=== PATIENT | female | born 1945 | race Caucasian/White ===

== ENCOUNTER → 2016-05-13 | Outpatient (CLI) | payer MEDICARE, OTHER ==
[~2016-05-13] MED LIST: REGADENOSON 0.4 MG/5 ML SYRINGE IV ONE
--- NOTE | 2016-05-13 14:07 | EST ---
DATE OF SERVICE: 05/13/16 AGE: 70Y SEX: F HT: 5'4" WT: 230 lbs. Protocol Terrell: Other: Lexiscan Stage: Dur. of Exercise: *Heart Rate Blood Pressure *Rest: 56 Rest: 151/78 * *Max. Achieved: 89 Maximum BP: 151/78 85% PMHR: 126 100% PMHR: 148 *METS: INDICATIONS: Abnormal EKG. Chest pain. MEDICATIONS: Pretesting physical examination showed heart rate of 56, pressure 151/78 mmHg. Baseline EKG showed sinus rhythm. 0.4 mg of Lexiscan was given to the patient over a ( ) protocol . Maximum heart rate was 89 beats per minute and maximin blood pressure was 151/78 mmHg. Clinically the patient did not have any symptoms and the EKG did not show any significant ST or T wave abnormalities consistent with ischemia. CONCLUSION: 1. Nondiagnostic electrocardiogram stress testing in response to Lexiscan. 2. Please follow cardiology portion on a separate report from the radiology department
--- NOTE | 2016-05-13 15:09 | NM ---
EXAMINATION TYPE: NM stress lexiscan cardiolite DATE OF EXAM: 05/13/2016 11:07 AM COMPARISON: NONE HISTORY: Abnormal EKG TECHNIQUE: After the intravenous administration of 10.1 mCi Tc 99m Sestamibi - Cardiolite resting SP ECT images acquired 45 minutes post injection. The patient received 0.4mg Lexiscan, 26.8 mCi Tc 99m Sestamibi - Stress images obtained [address] injection FINDINGS: Review of stress and rest SPECT images demonstrates no distinct perfusion abnormality. Gated analysi s shows normal wall motion with an estimated left ventricular ejection fraction of 64 %. IMPRESSION: No scintigraphic evidence for reversible ischemia.
== END ==
LOC: RADNMMAIN 07:45
PROVIDERS: ATTEND Family Medicine
DX: R94.31 Abnormal electrocardiogram [ECG] [EKG] (principal)
CPT/HCPCS: 93017; 78452; A9500; J2785

== ENCOUNTER 2016-08-24 11:12 | Inpatient (IN) | payer MEDICARE, OTHER ==
[2016-08-24] MEDS ORDERED: RX INFO: IV CONTRAST WAS GIVEN 1 EACH MISC MISCELLANE PRN (11:55)
[2016-08-24 12:06] LABS: Basophils % (A) 0 %; CH 30.3; CHCM 34.2; Eosinophils # (A) 0.2 k/uL (0-0.7); Eosinophils % (A) 2 %; HCT 37.5 % (34.0-46.0); HDW 2.53; HGB 13.3 gm/dL (11.4-16.0); Luc # (Auto) 0.18; Luc % (Auto) 3; Lymphocytes # (A) 0.8 k/uL (1.0-4.8); Lymphocytes % (A) 12 %; MCH 31.6 pg (25.0-35.0); MCHC 35.5 g/dL (31.0-37.0); MCV 88.8 fL (80.0-100.0); Mean Platelet Volume 7.1; Monocytes # (A) 0.5 k/uL (0-1.0); Monocytes % (A) 7 %; Neutrophils # (A) 5.2 k/uL (1.3-7.7); Neutrophils % (A) 77 %; RBC 4.22 m/uL (3.80-5.40); RDW 14.1 % (11.5-15.5); WBC 6.8 k/uL (3.8-10.6); WBC (Perox) 7.11
[2016-08-24] MEDS ORDERED: methylPREDNISolone SOD SUCCI 125 MG/2 ML VIAL IV STA (12:07)
[2016-08-24] MEDS ORDERED: FAMOTIDINE 20 MG/2 ML VIAL IV STA (12:07)
[2016-08-24] MEDS ORDERED: diphenhydrAMINE 50 MG/ML 1 ML VIAL IVP STA (12:07)
[2016-08-24 12:18] LABS: ALT 30 U/L (9-52); AST 22 U/L (14-36); Alkaline Phosphatase 101 U/L (38-126); Anion Gap 10 mmol/L; Blood Urea Nitrogen 19 mg/dL (7-17); Calcium 9.4 mg/dL (8.4-10.2); Carbon Dioxide 24 mmol/L (22-30); Chloride 101 mmol/L (98-107); Glucose 97 mg/dL (74-99); Non-African American GFR(MDRD) >60 (>60 ml/min/1.73 sqM); Potassium 3.7 mmol/L (3.5-5.1); Sodium 135 mmol/L (137-145); Total Bilirubin 0.9 mg/dL (0.2-1.3); Total Protein 6.2 g/dL (6.3-8.2)
--- NOTE | 2016-08-24 12:24 | XR ---
EXAMINATION TYPE: XR chest 2V DATE OF EXAM: 08/24/2016 COMPARISON: 02/23/2016 INDICATION: Difficulty breathing TECHNIQUE: Frontal and lateral views of the chest are obtained. FINDINGS: The heart size is normal. The pulmonary vasculature is normal. Appears be some subtle subsegmental atelectasis within the right lower lung field. Some atelectatic c hanges at the left costophrenic angle of not excluded.. IMPRESSION: 1. Small amount of nonspecific infiltrate within the right lower lobe and left costophrenic angle. Co rrelate for atelectasis. Follow-up can be performed as clinically indicated.
[2016-08-24] MEDS ORDERED: KETOROLAC 30 MG/ML 1 ML VIAL IVP STA (12:25)
[2016-08-24 12:28] LABS: INR 1.1 (<1.1); Partial Thromboplastin Time 23.9 sec (22.0-30.0); Prothrombin Time 10.7 sec (9.0-12.0)
[2016-08-24 12:33] LABS: Creatine Kinase 77 U/L (30-135)
[2016-08-24 12:46] LABS: Troponin I <0.012 ng/mL (0.000-0.034)
--- NOTE | 2016-08-24 12:47 | ED ---
General Adult HPI - General Chief complaint: Shortness of Breath Stated complaint: SOB/Chest pain Time Seen by Provider: 08/24/16 11:15 Source: patient, RN notes reviewed Mode of arrival: ambulatory Limitations: no limitations - History of Present Illness Initial comments: This is a 70-year-old female presents emergency Department complaining of right- sided chest pain and right-sided back pain. Patient states it's much worse with deep breathing. Patient states she's not taking deep breaths she is not having any pain at all. Patient states she has been diagnosed with a pulmonary was noted and is supposed to be on Coumadin however about 5 months ago she stopped taking it because she gets sick of getting checked every couple of weeks for her levels. Patient states Friday night about 2 AM she started vomiting and did vomit the whole night through however today she has not vomited it is not nauseated. Patient wonders if she possibly aspirated and that is what is causing her chest pain. Patient denies any abdominal pain patient denies any diarrhea. Patient states currently she is not nauseated patient denies any recent fever chills or cough. Patient denies a headache patient denies numbness weakness. - Related Data Home Medications Medication Instructions Recorded Confirmed Albuterol Sulfate [Proair Hfa] 2 puff INHALATION RT-Q4H PRN 06/28/15 08/24/16 Carvedilol [Coreg] 6.25 mg PO BID 06/28/15 08/24/16 Fexofenadine HCl [Melany Allergy] 180 mg PO DAILY 06/28/15 08/24/16 Fluticasone/Salmeterol [Advair 1 puff INHALATION RT-BID PRN 06/28/15 08/24/16 250-50 Diskus] HYDROcodone/APAP 10-325MG [[place] 1 tab PO Q6HR PRN 06/28/15 08/24/16 10-325] Levothyroxine Sodium [Synthroid] 25 mcg PO MOWEFR 06/28/15 08/24/16 Levothyroxine Sodium [Synthroid] 50 mcg PO SUTUTHSA 06/28/15 08/24/16 Montelukast [Singulair] 10 mg PO HS 06/28/15 08/24/16 Omeprazole 40 mg PO DAILY 06/28/15 08/24/16 Potassium Chloride [K-Tab ER] 10 meq PO Q48H 06/28/15 08/24/16 Pramipexole Di-HCl [Mirapex] 0.75 mg PO HS 06/28/15 08/24/16 Sertraline HCl [Zoloft] 50 mg PO DAILY 06/28/15 08/24/16 buPROPion XL [Wellbutrin Xl] 300 mg PO DAILY 06/28/15 08/24/16 Naproxen Sodium [Aleve] 220 mg PO BID 11/21/15 08/24/16 Acetaminophen [Tylenol] 1,000 mg PO Q6HR PRN 08/24/16 08/24/16 Aspirin [Adult Low Dose Aspirin EC] 81 mg PO HS 08/24/16 08/24/16 Furosemide [Lasix] 40 mg PO DAILY 08/24/16 08/24/16 OXcarbazepine [Trileptal] 150 mg PO BID 08/24/16 08/24/16 Umeclidinium [place] [Incruse 1 puff INHALATION RT-DAILY PRN 08/24/16 08/24/16 Ellipta] Allergies Allergy/AdvReac Type Severity Reaction Status Date / Time tetanus and diphtheria Allergy Severe Anaphylaxis Verified 08/24/16 12:53 toxoids [tetanus & diphtheria toxoids] nick Allergy Unknown ASTHMA Verified 08/24/16 12:53 ATTACK perfume Allergy Unknown ASTHMA Verified 08/24/16 12:53 ATTACK iodine Allergy Anaphylaxis Verified 08/24/16 12:53 mold Allergy Itching Verified 08/24/16 12:53 pollen extracts Allergy Itching Verified 08/24/16 12:53 cats Allergy Itching Uncoded 11/22/15 09:43 dust Allergy Itching Uncoded 11/22/15 09:43 Review of Systems ROS Statement: Those systems with pertinent positive or pertinent negative responses have been documented in the HPI. ROS Other: All systems not noted in ROS Statement are negative. Past Medical History Past Medical History: Asthma, Cancer, COPD, Fibromyalgia, GERD/Reflux, Hyperlipidemia, Hypertension, Musculoskeletal Disorder, Pneumonia, Pulmonary Embolus (PE), Sleep Apnea/CPAP/BIPAP, Thyroid Disorder Additional Past Medical History / Comment(s): HX OF OVARIAN CANCER, RLS, ENVIRONMENTAL ALLERGIES, HX OF PNEUMONIA W/LIFE SUPPORT, C-PAP MACHINE., HX OF COLITIS, HIATAL HERNIA W/SURGERY, BACK PAIN, SPINAL STENOSIS, DJD, COMPRESSION FX LUMABAR & CERVICAL SPINE. LOW THYROID. STATES "A FACTOR ON HER BLOOD "-WHICH TAKES LONGER TO DO A TYPE & CROSS MATCH. , STATES FALL WITH LOSS OF CONSCIOUSNESS (NOV 2014). History of Any Multi-Drug Resistant Organisms: None Reported Past Surgical History: Breast Surgery, Cholecystectomy, Joint Replacement, Orthopedic Surgery Additional Past Surgical History / Comment(s): HIATAL HERNIA (2011), RIGHT HAND KNUCKLE S, TOTAL LEFT HIP, REVISION LEFT HIP, TOTAL LEFT SHOULDER, TOTAL RIGHT KNEE, RIGHT ROTATOR CUFF, RT BREAST MASS, FATTY TUMORS, RIGHT ELBOW NERVE, RIGHT KNEE ARTHROSCOPY. Past Anesthesia/Blood Transfusion Reactions: No Reported Reaction Past Psychological History: Depression, PTSD Smoking Status: Former smoker Past Alcohol Use History: Rare Past Drug Use History: None Reported - Past Family History Mother Family Medical History: Cancer Additional Family Medical History / Comment(s): LYMPHOMA General Exam - General Exam Comments Initial Comments: GENERAL: Patient is well-developed and well-nourished. Patient is nontoxic and well- hydrated and is in moderate distress with deep breathing. ENT: Neck is soft and supple. No significant lymphadenopathy is noted. Oropharynx is clear. Moist mucous membranes. Neck has full range of motion without eliciting any pain. EYES: The sclera were anicteric and conjunctiva were pink and moist. Extraocular movements were intact and pupils were equal round and reactive to light. Eyelids were unremarkable. PULMONARY: Unlabored respirations. Good breath sounds bilaterally. No audible rales rhonchi or wheezing was noted. CARDIOVASCULAR: There is a regular rate and rhythm without any murmurs gallops or rubs. ABDOMEN: Soft and nontender with normal bowel sounds. No palpable organomegaly was noted. There is no palpable pulsatile mass. SKIN: Skin is clear with no lesions or rashes and otherwise unremarkable. NEUROLOGIC: Patient is alert and oriented x3. Cranial nerves II through XII are grossly intact. Motor and sensory are also intact. Normal speech, volume and content. Symmetrical smile. MUSCULOSKELETAL: Normal extremities with adequate strength and full range of motion. No lower extremity swelling or edema. No calf tenderness. LYMPHATICS: No significant lymphadenopathy is noted PSYCHIATRIC: Normal psychiatric evaluation. Normal interpersonal interactions appears functionally intact in deals appropriately with others. No signs of depression. No signs of anxiety. Limitations: no limitations Course Vital Signs 08/24/16 08/24/16 08/24/16 11:20 11:41 12:18 Temperature 97 F L Pulse Rate 67 71 Respiratory 20 20 18 Rate Blood Pressure 137/66 155/68 O2 Sat by Pulse 94 L 95 Oximetry 08/24/16 13:20 Temperature Pulse Rate 77 Respiratory 18 Rate Blood Pressure 168/78 O2 Sat by Pulse 98 Oximetry Medical Decision Making - Medical Decision Making EKG shows normal sinus rhythm at 64 bpm NV interval is 150 QRS 70 QT interval 400 QTC is 412 per patient's EKG shows no ST segment elevation or depression or T wave abnormalities are noted CT shows bilateral pulmonary emboli. Patient started on high-dose heparin in the emergency department. I spoke with Dr. Grimaldo he agreed to admit the patient admitted the patient to continue the high-dose heparin on the floor and I consult Dr. Day. - Lab Data Result diagrams: 08/24/16 11:38 08/24/16 11:38 Lab Results 08/24/16 08/24/16 08/24/16 Range/Units 11:38 11:38 11:38 WBC 6.8 (3.8-10.6) k/uL RBC 4.22 (3.80-5.40) m/uL Hgb 13.3 (11.4-16.0) gm/dL Hct 37.5 (34.0-46.0) % MCV 88.8 (80.0-100.0) fL MCH 31.6 (25.0-35.0) pg MCHC 35.5 (31.0-37.0) g/dL RDW 14.1 (11.5-15.5) % Plt Count 207 (150-450) k/uL Neutrophils % 77 % Lymphocytes % 12 % Monocytes % 7 % Eosinophils % 2 % Basophils % 0 % Neutrophils # 5.2 (1.3-7.7) k/uL Lymphocytes # 0.8 L (1.0-4.8) k/uL Monocytes # 0.5 (0-1.0) k/uL Eosinophils # 0.2 (0-0.7) k/uL Basophils # 0.0 (0-0.2) k/uL PT 10.7 (9.0-12.0) sec INR 1.1 (<1.1) APTT 23.9 (22.0-30.0) sec D-Dimer 4.26 H (<0.60) mg/L FEU Sodium (137-145) mmol/L Potassium (3.5-5.1) mmol/L Chloride (98-107) mmol/L Carbon Dioxide (22-30) mmol/L Anion Gap mmol/L BUN (7-17) mg/dL Creatinine (0.52-1.04) mg/dL Est GFR (MDRD) Af Amer (>60 ml/min/1.73 sqM) Est GFR (MDRD) Non-Af (>60 ml/min/1.73 sqM) Glucose (74-99) mg/dL Calcium (8.4-10.2) mg/dL Total Bilirubin (0.2-1.3) mg/dL AST (14-36) U/L ALT (9-52) U/L Alkaline Phosphatase (38-126) U/L Total Creatine Kinase 77 (30-135) U/L CK-MB (CK-2) 1.0 (0.0-2.4) ng/mL CK-MB (CK-2) Rel Index 1.3 Troponin I <0.012 (0.000-0.034) ng/mL Total Protein (6.3-8.2) g/dL Albumin (3.5-5.0) g/dL 08/24/16 Range/Units 11:38 WBC (3.8-10.6) k/uL RBC (3.80-5.40) m/uL Hgb (11.4-16.0) gm/dL Hct (34.0-46.0) % MCV (80.0-100.0) fL MCH (25.0-35.0) pg MCHC (31.0-37.0) g/dL RDW (11.5-15.5) % Plt Count (150-450) k/uL Neutrophils % % Lymphocytes % % Monocytes % % Eosinophils % % Basophils % % Neutrophils # (1.3-7.7) k/uL Lymphocytes # (1.0-4.8) k/uL Monocytes # (0-1.0) k/uL Eosinophils # (0-0.7) k/uL Basophils # (0-0.2) k/uL PT (9.0-12.0) sec INR (<1.1) APTT (22.0-30.0) sec D-Dimer (<0.60) mg/L FEU Sodium 135 L (137-145) mmol/L Potassium 3.7 (3.5-5.1) mmol/L Chloride 101 (98-107) mmol/L Carbon Dioxide 24 (22-30) mmol/L Anion Gap 10 mmol/L BUN 19 H (7-17) mg/dL Creatinine 0.83 (0.52-1.04) mg/dL Est GFR (MDRD) Af Amer >60 (>60 ml/min/1.73 sqM) Est GFR (MDRD) Non-Af >60 (>60 ml/min/1.73 sqM) Glucose 97 (74-99) mg/dL Calcium 9.4 (8.4-10.2) mg/dL Total Bilirubin 0.9 (0.2-1.3) mg/dL AST 22 (14-36) U/L ALT 30 (9-52) U/L Alkaline Phosphatase 101 (38-126) U/L Total Creatine Kinase (30-135) U/L CK-MB (CK-2) (0.0-2.4) ng/mL CK-MB (CK-2) Rel Index Troponin I (0.000-0.034) ng/mL Total Protein 6.2 L (6.3-8.2) g/dL Albumin 3.7 (3.5-5.0) g/dL Critical Care Time Critical Care Time: Yes Total Critical Care Time: 35 Disposition Clinical Impression: Pulmonary embolism Disposition: ADMITTED IP TO THIS [facility] Referrals: Obdulio Grimaldo MD [Primary Care Provider] - 1-2 days Time of Disposition: 14:10
--- NOTE | 2016-08-24 14:00 | CT ---
CT CHEST FOR PULMONARY EMBOLISM. EXAMINATION TYPE: CT chest angio for PE DATE OF EXAM: 08/24/2016 INDICATION: SOB, chest pain CT DLP: 397.80 mGycm, Automated exposure control for dose reduction was used. CONTRAST: Patient injected with 100 ml mL of Omnipaque 350. COMPARISON: NONE TECHNIQUE: CT of the chest is performed on a spiral scan at 2 mm thick sections. Study is performed with intravenous contrast timed for evaluation for pulmonary embolism. This will limit additional po rtions of the evaluation. 3-D MIP images reconstructed by the technologist are reviewed on the compu ter in the coronal and sagittal planes. FINDINGS: There are filling defects within the first order left lung pulmonary vessels. Second order right lowe r lobe vessels also contain thrombus. Findings are compatible with acute pulmonary emboli. No mediastinal or hilar adenopathy enlarged by CT criteria is evident. The ascending aorta diameter at the level of the main pulmonary artery is 3.2 cm. The main pulmonary artery diameter at the bifur cation is 2.9 cm. Atelectatic type changes are within the bilateral lung bases. There is some consolidation in the righ t lower lobe. This could be related to pulmonary embolism and wedge infarct, Bray's hump. Limited CT section through the upper abdomen are unremarkable. There is diffuse fatty infiltration to the pancreas Report was called to Dr. iDego by Dr. Brock by telephone 1350 hours 08/24/2016. IMPRESSIONS: 1. Bilateral pulmonary emboli.
[2016-08-24] MEDS ORDERED: HEPARIN SODIUM,PORCINE 10,000 UNIT/ML 1 ML VIAL IV ONE (14:15)
[2016-08-24] MEDS ORDERED: SODIUM CHLORIDE 0.9% 1,000 ML IV ONE (14:29)
[2016-08-24] MEDS: HEPARIN SODIUM,PORCINE/D5W PMX 25,000 UNIT in DEXTROSE/WATER 1 500ML.BAG IV SCH (14:31)
[2016-08-24 16:44] VITALS: BMI 37.4
[2016-08-24] MEDS ORDERED: ACETAMINOPHEN TAB 500 MG TAB PO PRN (17:41)
[2016-08-24] MEDS ORDERED: CARVEDILOL 6.25 MG TAB PO SCH (18:00)
[2016-08-24] MEDS: HYDROcodone/APAP 10-325MG 1 EACH TAB PO PRN (19:49)
[2016-08-24] MEDS: NAPROXEN 250 MG TAB PO SCH (19:51)
[2016-08-24] MEDS: ASPIRIN 81 MG CHEW PO SCH (19:51)
[2016-08-24] MEDS: MONTELUKAST 10 MG TAB PO SCH (19:51)
[2016-08-24] MEDS: PRAMIPEXOLE 0.25 MG TAB PO SCH (19:52)
[2016-08-24] MEDS: OXcarbazepine 150 MG TAB PO SCH (19:52)
[2016-08-24] MEDS: SYMBICORT 80-4.5 MCG INHALER INHALATION SCH (20:00)
[2016-08-24] MEDS: PANTOPRAZOLE 40 MG TABLET PO SCH (20:09)
[2016-08-25] MEDS: HEPARIN SODIUM,PORCINE/D5W PMX 25,000 UNIT in DEXTROSE/WATER 1 500ML.BAG IV SCH ×2 (06:01→20:18)
[2016-08-25] MEDS: LEVOTHYROXINE 50 MCG TAB PO SCH (06:17)
[2016-08-25] MEDS: CARVEDILOL 6.25 MG TAB PO SCH ×2 (07:01→16:58)
[2016-08-25] MEDS: SYMBICORT 80-4.5 MCG INHALER INHALATION SCH ×2 (07:57→19:56)
[2016-08-25] MEDS: TIOTROPIUM 18 MCG/PUFF INHALER INHALATION SCH (07:57)
[2016-08-25] MEDS: ALBUTEROL NEBULIZED 2.5 MG/3 ML INHALATION PRN ×4 (07:57→19:56)
[2016-08-25] MEDS: buPROPion XL 300 MG TAB.ER.24H PO SCH (08:37)
[2016-08-25] MEDS: OXcarbazepine 150 MG TAB PO SCH ×2 (08:38→20:24)
[2016-08-25] MEDS: SERTRALINE 50 MG TAB PO SCH (08:38)
[2016-08-25] MEDS: FUROSEMIDE 40 MG TAB PO SCH (08:39)
[2016-08-25] MEDS: POTASSIUM CHLORIDE ER 10 MEQ TAB.ER.PRT PO SCH (08:39)
[2016-08-25] MEDS: LORATADINE 10 MG TAB PO SCH (08:39)
[2016-08-25] MEDS: NAPROXEN 250 MG TAB PO SCH ×2 (08:42→20:24)
[2016-08-25] MEDS ORDERED: PANTOPRAZOLE 40 MG TABLET PO SCH (09:00)
--- NOTE | 2016-08-25 09:59 | P.HPIM ---
History of Present Illness H&P Date: 08/25/16 Chief Complaint: Dyspnea White female admitted 2-3 day history of shortness of breath cough congestion worsening with tightness or chest pain she took a deep breath fraction was in the low 90s with any amylacea home in which time she came to the ER she went off her Coumadin by herself with no medical advice and was found to have bilateral pulmonary embolism in the ER and admitted for primary bilateral pulmonary embolism Review of Systems REVIEW OF SYSTEMS: PSYCH: [Negative.] NEURO: [Negative.] VASCULAR: [Negative.] HEMATOLOGIC: [Negative.] IMMUNE: [Negative.] INTEGUMENT: [ Negative.] OPHTHALMOLOGIC: [Negative.] : [Negative.] 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 LOW THYROID. STATES "A FACTOR ON HER BLOOD "-WHICH TAKES LONGER TO DO A TYPE & CROSS MATCH. , STATES FALL WITH LOSS OF CONSCIOUSNESS (NOV 2014). History of Any Multi-Drug Resistant Organisms: None Reported Past Surgical History: Breast Surgery, Cholecystectomy, Hysterectomy, Joint Replacement, Orthopedic Surgery Additional Past Surgical History / Comment(s): HIATAL HERNIA (2011), RIGHT HAND KNUCKLE S, TOTAL LEFT HIP, REVISION LEFT HIP, TOTAL LEFT SHOULDER, TOTAL RIGHT KNEE, RIGHT ROTATOR CUFF, RT BREAST MASS, FATTY TUMORS, RIGHT ELBOW NERVE, RIGHT KNEE ARTHROSCOPY. Past Anesthesia/Blood Transfusion Reactions: No Reported Reaction Past Psychological History: Depression, PTSD Smoking Status: Former smoker Past Alcohol Use History: Rare Past Drug Use History: None Reported - Past Family History Mother Family Medical History: Cancer Additional Family Medical History / Comment(s): non [place] LYMPHOMA Medications and Allergies Home Medications Medication Instructions Recorded Confirmed Type Albuterol Sulfate [Proair Hfa] 2 puff INHALATION RT-Q4H PRN 06/28/15 08/24/16 History Carvedilol [Coreg] 6.25 mg PO BID 06/28/15 08/24/16 History Fexofenadine HCl [Melany Allergy] 180 mg PO DAILY 06/28/15 08/24/16 History Fluticasone/Salmeterol [Advair 1 puff INHALATION RT-BID PRN 06/28/15 08/24/16 History 250-50 Diskus] HYDROcodone/APAP 10-325MG [[place] 1 tab PO Q6HR PRN 06/28/15 08/24/16 History 10-325] Levothyroxine Sodium [Synthroid] 25 mcg PO MOWEFR 06/28/15 08/24/16 History Levothyroxine Sodium [Synthroid] 50 mcg PO SUTUTHSA 06/28/15 08/24/16 History Montelukast [Singulair] 10 mg PO HS 06/28/15 08/24/16 History Omeprazole 40 mg PO DAILY 06/28/15 08/24/16 History Potassium Chloride [K-Tab ER] 10 meq PO Q48H 06/28/15 08/24/16 History Pramipexole Di-HCl [Mirapex] 0.75 mg PO HS 06/28/15 08/24/16 History Sertraline HCl [Zoloft] 50 mg PO DAILY 06/28/15 08/24/16 History buPROPion XL [Wellbutrin Xl] 300 mg PO DAILY 06/28/15 08/24/16 History Naproxen Sodium [Aleve] 220 mg PO BID 11/21/15 08/24/16 History Acetaminophen [Tylenol] 1,000 mg PO Q6HR PRN 08/24/16 08/24/16 History Aspirin [Adult Low Dose Aspirin EC] 81 mg PO HS 08/24/16 08/24/16 History Furosemide [Lasix] 40 mg PO DAILY 08/24/16 08/24/16 History OXcarbazepine [Trileptal] 150 mg PO BID 08/24/16 08/24/16 History Umeclidinium [place] [Incruse 1 puff INHALATION RT-DAILY PRN 08/24/16 08/24/16 History Ellipta] Allergies Allergy/AdvReac Type Severity Reaction Status Date / Time tetanus and diphtheria Allergy Severe Anaphylaxis Verified 08/24/16 12:53 toxoids [tetanus & diphtheria toxoids] nick Allergy Unknown ASTHMA Verified 08/24/16 12:53 ATTACK perfume Allergy Unknown ASTHMA Verified 08/24/16 12:53 ATTACK iodine Allergy Anaphylaxis Verified 08/24/16 12:53 mold Allergy Itching Verified 08/24/16 12:53 pollen extracts Allergy Itching Verified 08/24/16 12:53 cats Allergy Itching Uncoded 11/22/15 09:43 dust Allergy Itching Uncoded 11/22/15 09:43 Physical Exam Vitals: Vital Signs Temp Pulse Pulse Resp BP BP Pulse Ox 08/25/16 08:12 70 08/25/16 07:59 66 95 08/25/16 04:00 96.8 F L 60 20 124/59 95 08/25/16 00:00 97.0 F L 63 20 121/59 98 08/24/16 20:00 97.1 F L 77 20 136/61 97 08/24/16 16:00 98.3 F 69 18 147/80 96 08/24/16 14:32 98.4 F 65 18 150/66 92 L 08/24/16 13:20 77 18 168/78 98 08/24/16 12:18 71 18 155/68 95 08/24/16 11:41 20 08/24/16 11:20 97 F L 67 20 137/66 94 L Intake and Output 08/24/16 08/25/16 08/25/16 22:59 06:59 14:59 Intake Total 202.64 1239.393 Balance 202.64 1239.393 Intake: IV 1000 Sodium Chloride 0.9% 1, 1000 000 ml @ 100 mls/hr IV . Q10H ONE Rx#:[id number] Intake, IV Titration 202.64 239.393 Amount Heparin Sodium,Porcine/ 202.64 239.393 D5w Pmx 25,000 unit In Dextrose/Water 1 500ml. bag @ 18 UNITS/KG/HR 35. 76 mls/hr IV .[id number] [facility] Rx#:[id number] Other: Voiding Method Toilet Toilet # Voids 1 1 Weight 99 kg 101.1 kg - Constitutional General appearance: obese - EENT Eyes: PERRLA ENT: hard of hearing - Neck Neck: normal ROM Thyroid: negative: normal size - Respiratory Respiratory: bilateral: diminished, rales - Cardiovascular Rhythm: regular - Gastrointestinal General gastrointestinal: decreased bowel sounds - Integumentary Integumentary: normal - Neurologic Neurologic: CNII-XII intact - Musculoskeletal Musculoskeletal: gait normal - Psychiatric Psychiatric: A&O x's 3, appropriate affect Results CBC & Chem 7: 08/24/16 11:38 08/24/16 11:38 Labs: Abnormal Lab Results - Last 24 Hours (Table) 08/24/16 08/24/16 08/24/16 Range/Units 11:38 11:38 11:38 Lymphocytes # 0.8 L (1.0-4.8) k/uL APTT (22.0-30.0) sec D-Dimer 4.26 H (<0.60) mg/L FEU Sodium 135 L (137-145) mmol/L BUN 19 H (7-17) mg/dL Total Protein 6.2 L (6.3-8.2) g/dL 08/24/16 08/25/16 Range/Units 19:21 03:17 Lymphocytes # (1.0-4.8) k/uL APTT 144.5 H* 130.5 H* (22.0-30.0) sec D-Dimer (<0.60) mg/L FEU Sodium (137-145) mmol/L BUN (7-17) mg/dL Total Protein (6.3-8.2) g/dL Thrombosis Risk Factor Assmnt - Choose All That Apply Each Risk Factor Represents 2 Points: Age 61-74 years Each Risk Factor Represents 3 Points: History of DVT/PE Thrombosis Risk Factor Assessment Total Risk Factor Score: 5 Thrombosis Risk Factor Assessment Level: High Risk Assessment and Plan Plan: IV heparin high-dose Coumadin 10 mg today by mouth INR daily with Coumadin stabilized she'll be discharged home continue on updraft treatments for her breathing incentive spirometry home medications be continued Time with Patient: Greater than 30
[2016-08-25] MEDS: HYDROcodone/APAP 10-325MG 1 EACH TAB PO PRN ×2 (11:09→16:58)
--- NOTE | 2016-08-25 12:43 | P.CNPUL ---
History of Present Illness Consult date: 08/25/16 Reason for consult: pulmonary embolism History of present illness: 70-year-old female patient is very well-known to me with previous history of multiple medical problems including a history of pulmonary embolism that occurred back in 2006 who came in yesterday to the emergency department complaining of a right-sided chest pain and posterior back pain that was worse with breathing and out of the state was pleuritic in nature. The patient stated that she is unable to take deep breaths due to the pain and the increased shortness of breath. The patient adequate taken off Coumadin approximately 5 months ago. She stopped it because she was getting tired of monitoring the levels. She was hemodynamically stable and the burst department. She was afebrile. Her pulse ox was 95% on 2 L of oxygen nasal cannula. EKG showed no ST segment changes. CAT scan of the chest showed bilateral pulmonary embolismIn addition to atelectatic changes in the lung bases and there are some consolidation of the right lower lobe probably later to an underlying pulmonary embolism. For all this reasons, the patient was hospitalized and the patient was started on IV heparin and pulmonary consultation was requested. Review of Systems 12 point review of system was done and the positive findings are almost above in history of present illness. Please refer to my detailed notes. All systems: negative Constitutional: Denies chills, Denies fever Eyes: denies blurred vision, denies pain Ears, nose, mouth and throat: Denies headache, Denies sore throat Cardiovascular: Reports dyspnea on exertion, Denies chest pain, Denies shortness of breath Respiratory: Reports cough, Reports dyspnea, Reports pain on inspiration Gastrointestinal: Denies abdominal pain, Denies diarrhea, Denies nausea, Denies vomiting Genitourinary: Denies dysuria, Denies hematuria Musculoskeletal: Denies myalgias Integumentary: Denies pruritus, Denies rash Neurological: Denies numbness, Denies weakness Psychiatric: Denies anxiety, Denies depression Endocrine: Denies fatigue, Denies weight change Past Medical History Past Medical History: Asthma, Cancer, COPD, Fibromyalgia, GERD/Reflux, Hyperlipidemia, Hypertension, Musculoskeletal Disorder, Pneumonia, Pulmonary Embolus (PE), Sleep Apnea/CPAP/BIPAP, Thyroid Disorder Additional Past Medical History / Comment(s): Obesity, obstructive sleep apnea severe maintained on CPAP therapy at a pressure of 12 cm water and the patient' s AHI is 106, COPD, previous history of pulmonary embolism in 2006, hypercoagulable state with MTHFR gene abnormalities maintained on long-term and to coagulation with warfarin, rheumatoid arthritis, RA , fibromyalgia, osteoarthritis, spondylolisthesis, depression, hypothyroidism, acid reflux, chronic anemia, fatty tumor in her uterus and ovaries removed, morbid obesity, osteoporosis, cervical cancer, seasonal rhinitis, spinal stenosis, hypothyroidism History of Any Multi-Drug Resistant Organisms: None Reported Past Surgical History: Breast Surgery, Cholecystectomy, Hysterectomy, Joint Replacement, Orthopedic Surgery Additional Past Surgical History / Comment(s): Rotator cuff repair 2011, the placement of the proximal knuckles to the third and the fourth digit in 2010, left hip replacement 2010, left shoulder patient 2007, right knee replacement 2005, total abdominal hysterectomy and bilateral salpingo-oophorectomy 1987, right knee arthroscopy 2004, left knee arthroscopy 2003, cholecystectomy, right elbow surgery 1994, hiatal hernia repair in 2011, Past Anesthesia/Blood Transfusion Reactions: No Reported Reaction Past Psychological History: Depression, PTSD Smoking Status: Former smoker Past Alcohol Use History: Rare Past Drug Use History: None Reported - Past Family History Mother Family Medical History: Cancer Additional Family Medical History / Comment(s): non Hodgekins LYMPHOMA Medications and Allergies Home Medications Medication Instructions Recorded Confirmed Type Albuterol Sulfate [Proair Hfa] 2 puff INHALATION RT-Q4H PRN 06/28/15 08/24/16 History Carvedilol [Coreg] 6.25 mg PO BID 06/28/15 08/24/16 History Fexofenadine HCl [Melany Allergy] 180 mg PO DAILY 06/28/15 08/24/16 History Fluticasone/Salmeterol [Advair 1 puff INHALATION RT-BID PRN 06/28/15 08/24/16 History 250-50 Diskus] HYDROcodone/APAP 10-325MG [[place]akoti 1 tab PO Q6HR PRN 06/28/15 08/24/16 History 10-325] Levothyroxine Sodium [Synthroid] 25 mcg PO MOWEFR 06/28/15 08/24/16 History Levothyroxine Sodium [Synthroid] 50 mcg PO SUTUTHSA 06/28/15 08/24/16 History Montelukast [Singulair] 10 mg PO HS 06/28/15 08/24/16 History Omeprazole 40 mg PO DAILY 06/28/15 08/24/16 History Potassium Chloride [K-Tab ER] 10 meq PO Q48H 06/28/15 08/24/16 History Pramipexole Di-HCl [Mirapex] 0.75 mg PO HS 06/28/15 08/24/16 History Sertraline HCl [Zoloft] 50 mg PO DAILY 06/28/15 08/24/16 History buPROPion XL [Wellbutrin Xl] 300 mg PO DAILY 06/28/15 08/24/16 History Naproxen Sodium [Aleve] 220 mg PO BID 11/21/15 08/24/16 History Acetaminophen [Tylenol] 1,000 mg PO Q6HR PRN 08/24/16 08/24/16 History Aspirin [Adult Low Dose Aspirin EC] 81 mg PO HS 08/24/16 08/24/16 History Furosemide [Lasix] 40 mg PO DAILY 08/24/16 08/24/16 History OXcarbazepine [Trileptal] 150 mg PO BID 08/24/16 08/24/16 History Umeclidinium [place] [Incruse 1 puff INHALATION RT-DAILY PRN 08/24/16 08/24/16 History Ellipta] Allergies Allergy/AdvReac Type Severity Reaction Status Date / Time tetanus and diphtheria Allergy Severe Anaphylaxis Verified 08/24/16 12:53 toxoids [tetanus & diphtheria toxoids] nick Allergy Unknown ASTHMA Verified 08/24/16 12:53 ATTACK perfume Allergy Unknown ASTHMA Verified 08/24/16 12:53 ATTACK iodine Allergy Anaphylaxis Verified 08/24/16 12:53 mold Allergy Itching Verified 08/24/16 12:53 pollen extracts Allergy Itching Verified 08/24/16 12:53 cats Allergy Itching Uncoded 11/22/15 09:43 dust Allergy Itching Uncoded 11/22/15 09:43 Physical Exam Vitals: Vital Signs Temp Pulse Pulse Resp BP BP Pulse Ox 08/25/16 08:12 70 08/25/16 08:00 97 F L 58 L 16 129/81 97 08/25/16 07:59 66 95 08/25/16 04:00 96.8 F L 60 20 124/59 95 08/25/16 00:00 97.0 F L 63 20 121/59 98 08/24/16 20:00 97.1 F L 77 20 136/61 97 08/24/16 16:00 98.3 F 69 18 147/80 96 08/24/16 14:32 98.4 F 65 18 150/66 92 L 08/24/16 13:20 77 18 168/78 98 08/24/16 12:18 71 18 155/68 95 08/24/16 11:41 20 08/24/16 11:20 97 F L 67 20 137/66 94 L Intake and Output 08/24/16 08/25/16 08/25/16 22:59 06:59 14:59 Intake Total 202.64 1239.393 Balance 202.64 1239.393 Intake: IV 1000 Sodium Chloride 0.9% 1, 1000 000 ml @ 100 mls/hr IV . Q10H [facility] Rx#:[id number] Intake, IV Titration 202.64 239.393 Amount Heparin Sodium,Porcine/ 202.64 239.393 D5w Pmx 25,000 unit In Dextrose/Water 1 500ml. bag @ 18 UNITS/KG/HR 35. 76 mls/hr IV .[id number] [facility] Rx#:[id number] Other: Voiding Method Toilet Toilet # Voids 1 1 Weight 99 kg 101.1 kg Obesity, calm and comfortable, no acute distress.Head exam was generally normal. There was no scleral icterus or corneal arcus. Mucous membranes were moist. Neck is supple and the patient has a significant crowding of the posterior oropharynx. There is no goiter or neck masses. Lungs sounds are diminished in lung base bilaterally otherwise clear.Cardiac exam revealed the PMI to be normally situated and sized. The rhythm was regular and no extrasystoles were noted during several minutes of auscultation. The first and second heart sounds were normal and physiologic splitting of the second heart sound was noted. There were no murmurs, rubs, clicks, or gallops.Abdominal exam revealed normal bowel sounds. The abdomen was soft, non-tender, and without masses, organomegaly, or appreciable enlargement of the abdominal aorta. Organs cannot be accurately palpated as the patient is obese.Examination of the extremities revealed easily palpable radial, femoral and pedal pulses. There was no cyanosis, clubbing or edema. - Constitutional General appearance: no acute distress - EENT Eyes: EOMI - Neck Neck: no lymphadenopathy Results - Laboratory Findings CBC and BMP: 08/24/16 11:38 08/24/16 11:38 PT/INR, D-dimer PT 10.7 sec (9.0-12.0) 08/24/16 11:38 INR 1.1 (<1.1) 08/24/16 11:38 D-Dimer 4.26 mg/L FEU (<0.60) H 08/24/16 11:38 Abnormal lab findings: Abnormal Labs 08/24/16 08/24/16 08/24/16 11:38 11:38 11:38 Lymphocytes # 0.8 L APTT D-Dimer 4.26 H Sodium 135 L BUN 19 H Total Protein 6.2 L 08/24/16 08/25/16 19:21 03:17 Lymphocytes # APTT 144.5 H* 130.5 H* D-Dimer Sodium BUN Total Protein - Diagnostic Findings CT scan - chest: image reviewed Assessment and Plan Plan: Assessment 1 acute but the pulmonary embolism with secondary pleuritic chest pain and shortness of breath. This is a recurrent event. The patient is known to have underlying hypercoagulable state and previous pulmonary embolism. She will need lifelong anticoagulation. She is currently on IV heparin 2 severe symptomatic obstructive sleep apnea with an AHI of 106 currently on a CPAP pressure of 12 cm of water. 3 previous history of pulmonary embolism in 2006 4 hypercoagulable state with previous MTHFR are gene abnormalities and the patient was taken lifelong anticoagulation with warfarin 5 osteoarthritis 6 osteoarthritis 7 spondylolisthesis 8 fibromyalgia 9 cervical cancer resected 10 spondylolisthesis 11 depression 13 hypothyroidism 14 chronic anemia 15 acid reflux 16 osteoporosis 17 seasonal rhinitis Plan I had a lengthy discussion with the patient. I discussed with her the importance of anticoagulation. She will be requiring lifelong anticoagulation. Her main issue seems to be the frequent monitoring that she has to do in the hospital for her INR. I think a home INR monitoring should solve her problem as she can monitor her levels at home and contact a physician for any adjustments. The new oral anticoagulants are quite expensive and not covered under insurance coverage. Based on that, the patient will be going back on warfarin and she'll be started on warfarin today to achieve an INR between 2 and 3. Meanwhile, continue IV heparin for now.
[2016-08-25] MEDS ORDERED: CALCIUM CARBONATE 500 MG CHEWABLE PO PRN (14:26)
[2016-08-25] MEDS: diphenhydrAMINE 50 MG CAP PO PRN (16:58)
[2016-08-25] MEDS ORDERED: WARFARIN 10 MG TAB PO ONE (18:00)
[2016-08-25] MEDS: PANTOPRAZOLE 40 MG TABLET PO SCH (20:25)
[2016-08-25] MEDS: PRAMIPEXOLE 0.25 MG TAB PO SCH (20:25)
[2016-08-25] MEDS: MONTELUKAST 10 MG TAB PO SCH (20:25)
[2016-08-25] MEDS: ASPIRIN 81 MG CHEW PO SCH (20:26)
[2016-08-26] MEDS: LEVOTHYROXINE 25 MCG TAB PO SCH (06:00)
[2016-08-26] MEDS: CARVEDILOL 6.25 MG TAB PO SCH ×2 (06:00→17:18)
[2016-08-26 06:45] LABS: INR 1.1 (<1.1); Partial Thromboplastin Time 62.6 sec (22.0-30.0); Prothrombin Time 11.2 sec (9.0-12.0)
[2016-08-26] MEDS: ALBUTEROL NEBULIZED 2.5 MG/3 ML INHALATION PRN ×4 (07:56→19:48)
[2016-08-26] MEDS: TIOTROPIUM 18 MCG/PUFF INHALER INHALATION SCH (07:56)
[2016-08-26] MEDS: SYMBICORT 80-4.5 MCG INHALER INHALATION SCH ×2 (07:56→19:48)
[2016-08-26] MEDS: buPROPion XL 300 MG TAB.ER.24H PO SCH (08:27)
[2016-08-26] MEDS: FUROSEMIDE 40 MG TAB PO SCH (08:27)
[2016-08-26] MEDS: LORATADINE 10 MG TAB PO SCH (08:27)
[2016-08-26] MEDS: NAPROXEN 250 MG TAB PO SCH ×2 (08:28→22:30)
[2016-08-26] MEDS: SERTRALINE 50 MG TAB PO SCH (08:28)
[2016-08-26] MEDS: OXcarbazepine 150 MG TAB PO SCH ×2 (08:28→22:32)
--- NOTE | 2016-08-26 09:23 | P.PN ---
Subjective Principal diagnosis: Bilateral pulmonary embolism Patient remains she was given Coumadin 10 mg last night INR today is 1.1 her normal Coumadin dose is 7.5 mg daily that she has stopped before her recurrent pulmonary embolisms will give her another 10 mg of Coumadin today check INR in the morning as well as a CBC oxygen level she is breathing now 9495% on room air which is much improved from yesterday updraft treatments are helping her Coumadin compliance was discussed as well as all her medical care expect discharge home For 48 hours pending INR between 2 and 3 Objective - Vital Signs Vital signs: Vital Signs Temp 97.1 F L 08/26/16 08:00 Pulse 68 08/26/16 08:17 Resp 16 08/26/16 08:00 BP 134/75 08/26/16 08:00 Pulse Ox 96 08/26/16 08:00 Intake & Output 08/25/16 08/26/16 08/26/16 18:59 06:59 18:59 Intake Total 364.76 888.459 480 Output Total 1550 300 Balance 364.76 -661.541 180 Weight 104 kg Intake: IV 0 Sodium Chloride 0.9% 1, 0 000 ml @ 100 mls/hr IV . Q10H [facility] Rx#:[id number] Intake, IV Titration 184.76 408.459 Amount Heparin Sodium,Porcine/ 184.76 408.459 D5w Pmx 25,000 unit In Dextrose/Water 1 500ml. bag @ 18 UNITS/KG/HR 35. 76 mls/hr IV .[id number] [facility] Rx#:[id number] Oral 180 480 480 Output: Urine 1550 300 Other: Voiding Method Toilet Toilet # Voids 3 2 - Constitutional General appearance: Present: obese - EENT Eyes: Present: anicteric sclerae ENT: Present: hearing grossly normal - Respiratory Respiratory: bilateral: CTA - Cardiovascular Rhythm: regular - Gastrointestinal General gastrointestinal: Present: soft - Integumentary Integumentary: Present: normal - Labs CBC & Chem 7: 08/24/16 11:38 08/24/16 11:38 Labs: Abnormal Lab Results - Last 24 Hours (Table) 08/25/16 08/26/16 Range/Units 12:15 05:42 APTT 59.9 H 62.6 H (22.0-30.0) sec Assessment and Plan Plan: IV heparin high-dose Coumadin 10 mg today by mouth INR daily with Coumadin stabilized she'll be discharged home continue on updraft treatments for her breathing incentive spirometry home medications be continued Time with Patient: Greater than 30
--- NOTE | 2016-08-26 11:55 | P.PN ---
Subjective Principal diagnosis: Acute and recurrent pulmonary embolism. 70-year-old female patient is very well-known to me with previous history of multiple medical problems including a history of pulmonary embolism that occurred back in 2006 who came in yesterday to the emergency department complaining of a right-sided chest pain and posterior back pain that was worse with breathing and out of the state was pleuritic in nature. The patient stated that she is unable to take deep breaths due to the pain and the increased shortness of breath. The patient adequate taken off Coumadin approximately 5 months ago. She stopped it because she was getting tired of monitoring the levels. She was hemodynamically stable and the burst department. She was afebrile. Her pulse ox was 95% on 2 L of oxygen nasal cannula. EKG showed no ST segment changes. CAT scan of the chest showed bilateral pulmonary embolismIn addition to atelectatic changes in the lung bases and there are some consolidation of the right lower lobe probably later to an underlying pulmonary embolism. For all this reasons, the patient was hospitalized and the patient was started on IV heparin and pulmonary consultation was requested. Reevaluated today on 08/26/2016, patient is doing well, relatively asymptomatic, tolerating anticoagulation therapy including heparin and Coumadin quite well. No shortness of breath, no chest pain, no fever, no chills, no hemoptysis. PTT is therapeutic at 62.6, INR remains low at 1.1. Objective - Vital Signs Vital signs: Vital Signs Temp 97.1 F L 08/26/16 08:00 Pulse 50 L 08/26/16 11:49 Resp 18 08/26/16 11:49 BP 149/84 08/26/16 11:49 Pulse Ox 98 08/26/16 11:49 Intake & Output 08/25/16 08/26/16 08/26/16 18:59 06:59 18:59 Intake Total 364.76 888.459 480 Output Total 1550 300 Balance 364.76 -661.541 180 Weight 104 kg Intake: IV 0 Sodium Chloride 0.9% 1, 0 000 ml @ 100 mls/hr IV . Q10H [facility] Rx#:[id number] Intake, IV Titration 184.76 408.459 Amount Heparin Sodium,Porcine/ 184.76 408.459 D5w Pmx 25,000 unit In Dextrose/Water 1 500ml. bag @ 18 UNITS/KG/HR 35. 76 mls/hr IV .[id number] [facility] Rx#:[id number] Oral 180 480 480 Output: Urine 1550 300 Other: Voiding Method Toilet Toilet # Voids 3 2 1 - Exam Physical Exam: Revealed a 70-year-old female in no distress. HEENT:[Neck is supple.] [No neck masses.] [No thyromegaly.] [No JVD.] Chest: [Clear throughout, no crackles, no rhonchi, no wheezes.] Cardiac Exam: [Normal S1 and S2, no S3 gallop, no murmur.] Abdomen: [Soft, nontender, no megaly, no rebound, no guarding, normal bowel sounds.] Extremities: [No clubbing, no edema, no cyanosis.] Neurological Exam: [No focal neurologic deficit.] - Labs CBC & Chem 7: 08/24/16 11:38 08/24/16 11:38 Labs: Abnormal Lab Results - Last 24 Hours (Table) 08/25/16 08/26/16 Range/Units 12:15 05:42 APTT 59.9 H 62.6 H (22.0-30.0) sec Assessment and Plan Plan: 1 acute but the pulmonary embolism with secondary pleuritic chest pain and shortness of breath. This is a recurrent event. The patient is known to have underlying hypercoagulable state and previous pulmonary embolism. She will need lifelong anticoagulation. She is currently on IV heparin, and Coumadin was already started. 2 severe symptomatic obstructive sleep apnea with an AHI of 106 currently on a CPAP pressure of 12 cm of water. 3 previous history of pulmonary embolism in 2006 4 hypercoagulable state with previous MTHFR are gene abnormalities and the patient was taken lifelong anticoagulation with warfarin 5 osteoarthritis 6 osteoarthritis 7 spondylolisthesis 8 fibromyalgia 9 cervical cancer resected 10 spondylolisthesis 11 depression 13 hypothyroidism 14 chronic anemia 15 acid reflux 16 osteoporosis 17 seasonal rhinitis Recommendation: Continue present treatment plan including Coumadin and heparin, once Coumadin becomes therapeutic, consider discharging the patient home on follow-up on outpatient basis with Dr. Day. Time with Patient: Less than 30
[2016-08-26] MEDS: diphenhydrAMINE 50 MG CAP PO PRN (14:41)
[2016-08-26] MEDS ORDERED: WARFARIN 10 MG TAB PO ONE (18:00)
[2016-08-26] MEDS: MONTELUKAST 10 MG TAB PO SCH (22:29)
[2016-08-26] MEDS: ASPIRIN 81 MG CHEW PO SCH (22:31)
[2016-08-26] MEDS: PRAMIPEXOLE 0.25 MG TAB PO SCH (22:32)
[2016-08-26] MEDS: PANTOPRAZOLE 40 MG TABLET PO SCH (22:33)
[2016-08-27] MEDS: HEPARIN SODIUM,PORCINE/D5W PMX 25,000 UNIT in DEXTROSE/WATER 1 500ML.BAG IV SCH (00:39)
[2016-08-27 06:51] LABS: Basophils % (A) 0 %; CH 30.5; CHCM 34.2; Eosinophils # (A) 0.2 k/uL (0-0.7); Eosinophils % (A) 5 %; HCT 35.1 % (34.0-46.0); HDW 2.45; HGB 11.8 gm/dL (11.4-16.0); INR 1.6 (<1.1); Luc # (Auto) 0.08; Luc % (Auto) 2; Lymphocytes # (A) 0.7 k/uL (1.0-4.8); Lymphocytes % (A) 19 %; MCHC 33.5 g/dL (31.0-37.0); MCV 89.5 fL (80.0-100.0); Mean Platelet Volume 6.9; Monocytes # (A) 0.3 k/uL (0-1.0); Monocytes % (A) 7 %; Neutrophils # (A) 2.5 k/uL (1.3-7.7); Neutrophils % (A) 66 %; Partial Thromboplastin Time 52.8 sec (22.0-30.0); Prothrombin Time 15.3 sec (9.0-12.0); RBC 3.92 m/uL (3.80-5.40); RDW 14.4 % (11.5-15.5); WBC 3.7 k/uL (3.8-10.6); WBC (Perox) 3.92
[2016-08-27] MEDS: CARVEDILOL 6.25 MG TAB PO SCH ×2 (07:00→17:22)
[2016-08-27] MEDS: LEVOTHYROXINE 25 MCG TAB PO SCH (07:00)
[2016-08-27] MEDS: SYMBICORT 80-4.5 MCG INHALER INHALATION SCH ×2 (07:47→19:33)
[2016-08-27] MEDS: TIOTROPIUM 18 MCG/PUFF INHALER INHALATION SCH (07:47)
[2016-08-27] MEDS: ALBUTEROL NEBULIZED 2.5 MG/3 ML INHALATION PRN ×2 (07:47→11:21)
[2016-08-27] MEDS: LEVOTHYROXINE 50 MCG TAB PO SCH (08:44)
[2016-08-27] MEDS: NAPROXEN 250 MG TAB PO SCH ×2 (08:50→22:04)
[2016-08-27] MEDS: SERTRALINE 50 MG TAB PO SCH (08:51)
[2016-08-27] MEDS: LORATADINE 10 MG TAB PO SCH (08:51)
[2016-08-27] MEDS: OXcarbazepine 150 MG TAB PO SCH ×2 (08:51→22:06)
[2016-08-27] MEDS: POTASSIUM CHLORIDE ER 10 MEQ TAB.ER.PRT PO SCH (08:51)
[2016-08-27] MEDS: FUROSEMIDE 40 MG TAB PO SCH (08:51)
[2016-08-27] MEDS: buPROPion XL 300 MG TAB.ER.24H PO SCH (08:51)
--- NOTE | 2016-08-27 09:44 | P.PN ---
Subjective Principal diagnosis: Bilateral pulmonary embolism Patient remains she was given Coumadin 10 mg last night INR today is 1.1 her normal Coumadin dose is 7.5 mg daily that she has stopped before her recurrent pulmonary embolisms will give her another 10 mg of Coumadin today check INR in the morning as well as a CBC oxygen level she is breathing now 9495% on room air which is much improved from yesterday updraft treatments are helping her Coumadin compliance was discussed as well as all her medical care expect discharge home For 48 hours pending INR between 2 and 3 Objective - Vital Signs Vital signs: Vital Signs Temp 97.2 F L 08/27/16 04:00 Pulse 76 08/27/16 08:03 Resp 18 08/27/16 04:00 BP 133/68 08/27/16 04:00 Pulse Ox 95 08/27/16 04:00 Intake & Output 08/26/16 08/27/16 08/27/16 18:59 06:59 18:59 Intake Total 727.296 240 Output Total 300 300 Balance 427.296 -60 Weight 104.1 kg Intake: Intake, IV Titration 247.296 Amount Heparin Sodium,Porcine/ 247.296 D5w Pmx 25,000 unit In Dextrose/Water 1 500ml. bag @ 18 UNITS/KG/HR 35. 76 mls/hr IV .[id number] [facility] Rx#:[id number] Oral 480 240 Output: Urine 300 300 Other: Voiding Method Toilet # Voids 1 1 1 - Constitutional General appearance: Present: obese - EENT Eyes: Present: anicteric sclerae ENT: Present: hearing grossly normal - Respiratory Respiratory: bilateral: CTA - Cardiovascular Heart sounds: normal: S1, S2 - Gastrointestinal General gastrointestinal: Present: normal bowel sounds - Integumentary Integumentary: Present: normal - Neurologic Neurologic: Present: CNII-XII intact - Labs CBC & Chem 7: 08/27/16 05:50 08/24/16 11:38 Labs: Abnormal Lab Results - Last 24 Hours (Table) 08/27/16 08/27/16 Range/Units 05:50 05:50 WBC 3.7 L (3.8-10.6) k/uL Lymphocytes # 0.7 L (1.0-4.8) k/uL PT 15.3 H (9.0-12.0) sec APTT 52.8 H (22.0-30.0) sec Assessment and Plan Plan: INR is up to 1.6 today we'll give Coumadin 7.5 mg today which is her normal home dose expect discharge home in the morning she wants an ultrasound of her legs done to rule out DVT of her legs Time with Patient: Less than 30
--- NOTE | 2016-08-27 10:45 | P.PN ---
Subjective Principal diagnosis: Acute and recurrent pulmonary embolism. 70-year-old female patient is very well-known to me with previous history of multiple medical problems including a history of pulmonary embolism that occurred back in 2006 who came in yesterday to the emergency department complaining of a right-sided chest pain and posterior back pain that was worse with breathing and out of the state was pleuritic in nature. The patient stated that she is unable to take deep breaths due to the pain and the increased shortness of breath. The patient adequate taken off Coumadin approximately 5 months ago. She stopped it because she was getting tired of monitoring the levels. She was hemodynamically stable and the burst department. She was afebrile. Her pulse ox was 95% on 2 L of oxygen nasal cannula. EKG showed no ST segment changes. CAT scan of the chest showed bilateral pulmonary embolismIn addition to atelectatic changes in the lung bases and there are some consolidation of the right lower lobe probably later to an underlying pulmonary embolism. For all this reasons, the patient was hospitalized and the patient was started on IV heparin and pulmonary consultation was requested. Reevaluated today on 08/26/2016, patient is doing well, relatively asymptomatic, tolerating anticoagulation therapy including heparin and Coumadin quite well. No shortness of breath, no chest pain, no fever, no chills, no hemoptysis. PTT is therapeutic at 62.6, INR remains low at 1.1. Reevaluated today on 08/27/2016, patient is doing quite well, asymptomatic, no cough no wheezing no shortness of breath and no chest pain. PTT is still subtherapeutic, INR of 1.6. Hence the patient will be given another dose of Coumadin 10 mg tonight, and most likely the patient will be therapeutic by tomorrow, and then she could be discharged home tomorrow on Coumadin. Objective - Vital Signs Vital signs: Vital Signs Temp 97.2 F L 08/27/16 04:00 Pulse 76 08/27/16 08:03 Resp 18 08/27/16 04:00 BP 133/68 08/27/16 04:00 Pulse Ox 95 08/27/16 04:00 Intake & Output 08/26/16 08/27/16 08/27/16 18:59 06:59 18:59 Intake Total 727.296 240 Output Total 300 300 Balance 427.296 -60 Weight 104.1 kg Intake: Intake, IV Titration 247.296 Amount Heparin Sodium,Porcine/ 247.296 D5w Pmx 25,000 unit In Dextrose/Water 1 500ml. bag @ 18 UNITS/KG/HR 35. 76 mls/hr IV .[id number] [facility] Rx#:[id number] Oral 480 240 Output: Urine 300 300 Other: Voiding Method Toilet # Voids 1 1 1 - Exam Physical Exam: Revealed a 70-year-old female in no distress. HEENT:[Neck is supple.] [No neck masses.] [No thyromegaly.] [No JVD.] Chest: [Clear throughout, no crackles, no rhonchi, no wheezes.] Cardiac Exam: [Normal S1 and S2, no S3 gallop, no murmur.] Abdomen: [Soft, nontender, no megaly, no rebound, no guarding, normal bowel sounds.] Extremities: [No clubbing, no edema, no cyanosis.] Neurological Exam: [No focal neurologic deficit.] - Labs CBC & Chem 7: 08/27/16 05:50 08/24/16 11:38 Labs: Abnormal Lab Results - Last 24 Hours (Table) 08/27/16 08/27/16 Range/Units 05:50 05:50 WBC 3.7 L (3.8-10.6) k/uL Lymphocytes # 0.7 L (1.0-4.8) k/uL PT 15.3 H (9.0-12.0) sec APTT 52.8 H (22.0-30.0) sec Assessment and Plan Plan: 1 acute but the pulmonary embolism with secondary pleuritic chest pain and shortness of breath. This is a recurrent event. The patient is known to have underlying hypercoagulable state and previous pulmonary embolism. She will need lifelong anticoagulation. She is currently on IV heparin, and Coumadin was already started. Remains subtherapeutic, INR today was 1.6. 2 severe symptomatic obstructive sleep apnea with an AHI of 106 currently on a CPAP pressure of 12 cm of water. 3 previous history of pulmonary embolism in 2006 4 hypercoagulable state with previous MTHFR are gene abnormalities and the patient was taken lifelong anticoagulation with warfarin 5 osteoarthritis 6 osteoarthritis 7 spondylolisthesis 8 fibromyalgia 9 cervical cancer resected 10 spondylolisthesis 11 depression 13 hypothyroidism 14 chronic anemia 15 acid reflux 16 osteoporosis 17 seasonal rhinitis Recommendation: Continue present treatment plan , continue Coumadin, continue heparin, discharge planning in the next 24 hours. Time with Patient: Less than 30
--- NOTE | 2016-08-27 12:22 | US ---
EXAMINATION TYPE: US venous doppler duplex LE DATE OF EXAM: 08/27/2016 11:57 AM COMPARISON: NONE CLINICAL HISTORY: dvt. PE, left leg pain, bilateral leg swelling, patient on blood thinners SIDE PERFORMED: Bilateral TECHNIQUE: The lower extremity deep venous system is examined utilizing real time linear array sonog enoch with graded compression, doppler sonography and color-flow sonography. VESSELS IMAGED: External Iliac Vein (EIV) Common Femoral Vein Deep Femoral Vein Greater Saphenous Vein * Femoral Vein Popliteal Vein Small Saphenous Vein * Proximal Calf Veins (* superficial vessels) Right Leg: Appears negative for DVT Left Leg: Appears negative for DVT IMPRESSION: Normal exam. No evidence of deep venous thrombosis in left and right leg.
[2016-08-27] MEDS: HYDROcodone/APAP 10-325MG 1 EACH TAB PO PRN (17:22)
[2016-08-27] MEDS ORDERED: WARFARIN 7.5 MG TAB PO SCH (18:00)
[2016-08-27] MEDS ORDERED: WARFARIN 10 MG TAB PO SCH (18:00)
[2016-08-27] MEDS: MONTELUKAST 10 MG TAB PO SCH (22:04)
[2016-08-27] MEDS: PRAMIPEXOLE 0.25 MG TAB PO SCH (22:04)
[2016-08-27] MEDS: ASPIRIN 81 MG CHEW PO SCH (22:06)
[2016-08-27] MEDS: PANTOPRAZOLE 40 MG TABLET PO SCH (22:07)
[2016-08-28 00:41] VITALS: RESP 18
[2016-08-28] MEDS: ALBUTEROL NEBULIZED 2.5 MG/3 ML INHALATION PRN (05:36)
[2016-08-28] MEDS: CARVEDILOL 6.25 MG TAB PO SCH (07:08)
[2016-08-28] MEDS: HEPARIN SODIUM,PORCINE/D5W PMX 25,000 UNIT in DEXTROSE/WATER 1 500ML.BAG IV SCH ×3 (07:09→09:35)
[2016-08-28 07:56] LABS: CH 30.3; CHCM 33.9; HCT 34.5 % (34.0-46.0); HDW 2.48; HGB 12.1 gm/dL (11.4-16.0); MCH 31.6 pg (25.0-35.0); MCHC 35.2 g/dL (31.0-37.0); MCV 89.7 fL (80.0-100.0); RBC 3.85 m/uL (3.80-5.40); RDW 14.3 % (11.5-15.5); WBC 4.4 k/uL (3.8-10.6)
[2016-08-28 07:58] LABS: INR 2.7 (<1.1)
[2016-08-28] MEDS: HYDROcodone/APAP 10-325MG 1 EACH TAB PO PRN (08:20)
[2016-08-28] MEDS: NAPROXEN 250 MG TAB PO SCH (08:22)
[2016-08-28] MEDS: SERTRALINE 50 MG TAB PO SCH (08:23)
[2016-08-28] MEDS: FUROSEMIDE 40 MG TAB PO SCH (08:23)
[2016-08-28] MEDS: buPROPion XL 300 MG TAB.ER.24H PO SCH (08:23)
[2016-08-28] MEDS: OXcarbazepine 150 MG TAB PO SCH (08:23)
[2016-08-28] MEDS: LORATADINE 10 MG TAB PO SCH (08:23)
[2016-08-28] MEDS: SYMBICORT 80-4.5 MCG INHALER INHALATION SCH (08:33)
[2016-08-28] MEDS: TIOTROPIUM 18 MCG/PUFF INHALER INHALATION SCH (08:33)
[2016-08-28 08:56] LABS: Anion Gap 8 mmol/L; Blood Urea Nitrogen 13 mg/dL (7-17); Calcium 8.9 mg/dL (8.4-10.2); Carbon Dioxide 28 mmol/L (22-30); Chloride 100 mmol/L (98-107); Glucose 115 mg/dL (74-99); Non-African American GFR(MDRD) >60 (>60 ml/min/1.73 sqM); Potassium 3.7 mmol/L (3.5-5.1); Sodium 136 mmol/L (137-145)
[2016-08-28 09:32] VITALS: BP 185/92; PULSE 66; TEMP 97.2
--- NOTE | 2016-08-28 09:44 | P.DS ---
Providers Date of admission: 08/24/16 14:29 Expected date of discharge: 08/28/16 Attending physician: Obdulio Grimaldo Consults: 08/24/16 14:29 Consult Physician Urgent Consulting Provider: Benjie Day Consult Reason/Comments: Pulmonary embolism Do you want consulting provider notified?: Yes Primary care physician: [facility] Course: 70-year-old female presented on the day of admission to the emergency room with a chief complaint of developing right side chest discomfort radiating to the back worse with a deep breath. Patient stated been ongoing for the past several days. Patient stated that she had been on Coumadin but was taken off about 5 months prior. Patient stated that she stopped taking her Coumadin because she was tired of monitoring the INR Does have a history of prior pulmonary emboli that occurred in 2006. Patient was seen in the emergency room and admitted to the services of the attending. CAT scan of the chest did show bilateral pulmonary emboli with atelectatic changes to the lung bases. There is also consolidation of the right lower lobe lateral to the underlying pulmonary embolus. Given the above clinical presentation the patient was admitted to the services of the attending with IV heparin initiated a pulmonary consultation was requested on the day of discharge August 28 the INR was 2.7. Potassium 3.7. The rest of the labs were all within therapeutic range breathing felt significantly improved on room air sats are 98% Impression discharge diagnosis Present on admission acute shortness of breath likely due to an acute bilateral pulmonary emboli Reoccurrent episode pulmonary emboli Hypercoagulable state with previous MTHFR gene abnormalities patient was taken lifelong anticoagulation with warfarin severe symptomatic obstructive sleep apnea with an AHI of 106 currently on a CPAP pressure of 12 cm of water. Osteoarthritis Depressive disorder nonspecified Hypothyroid on supplements Seasonal rhinitis Acid reflux fibromyalgia spondylolisthesis underlying hypercoagulable state and previous pulmonary embolism. will need lifelong anticoagulation. Cervical cancer resected Osteoporosis Obesity BMI 39 Noncompliant with Coumadin Chronic pain opiate dependency The above impression and plan of care have been discussed and directed by signing physician. Nancy Brown nurse practitioner acting as scribe for signing physician. Plan - Discharge Summary New Discharge Prescriptions: New Warfarin Sodium [Coumadin] 7.5 mg PO DAILY #30 tablet Continue buPROPion XL [Wellbutrin XL] 300 mg PO DAILY Sertraline HCl [Zoloft] 50 mg PO DAILY Fluticasone/Salmeterol [Advair 250-50 Diskus] 1 puff INHALATION RT-BID PRN PRN Reason: Shortness Of Breath Pramipexole Di-HCl [Mirapex] 0.75 mg PO HS Potassium Chloride [K-Tab ER] 10 meq PO Q48H Omeprazole 40 mg PO DAILY Montelukast [Singulair] 10 mg PO HS Levothyroxine Sodium [Synthroid] 25 mcg PO MOWE Levothyroxine Sodium [Synthroid] 50 mcg PO SUTUTH Carvedilol [Coreg] 6.25 mg PO BID HYDROcodone/APAP 10-325MG [[place] 10-325] 1 tab PO Q6HR PRN PRN Reason: Pain Albuterol Sulfate [Proair Hfa] 2 puff INHALATION RT-Q4H PRN PRN Reason: Shortness Of Breath Fexofenadine HCl [Melany Allergy] 180 mg PO DAILY Naproxen Sodium [Aleve] 220 mg PO BID Aspirin [Adult Low Dose Aspirin EC] 81 mg PO HS Acetaminophen [Tylenol] 1,000 mg PO Q6HR PRN PRN Reason: Pain OXcarbazepine [Trileptal] 150 mg PO BID Furosemide [Lasix] 40 mg PO DAILY Umeclidinium [place] [Incruse Ellipta] 1 puff INHALATION RT-DAILY PRN PRN Reason: Shortness Of Breath Discharge Medication List Albuterol Sulfate [Proair Hfa] 2 puff INHALATION RT-Q4H PRN 06/28/15 [History] Carvedilol [Coreg] 6.25 mg PO BID 06/28/15 [History] Fexofenadine HCl [Melany Allergy] 180 mg PO DAILY 06/28/15 [History] Fluticasone/Salmeterol [Advair 250-50 Diskus] 1 puff INHALATION RT-BID PRN 06/27 [History] HYDROcodone/APAP 10-325MG [[place] 10-325] 1 tab PO Q6HR PRN 06/28/15 [History] Levothyroxine Sodium [Synthroid] 25 mcg PO MOWEFR 06/28/15 [History] Levothyroxine Sodium [Synthroid] 50 mcg PO SUTUTHSA 06/28/15 [History] Montelukast [Singulair] 10 mg PO HS 06/28/15 [History] Omeprazole 40 mg PO DAILY 06/28/15 [History] Potassium Chloride [K-Tab ER] 10 meq PO Q48H 06/28/15 [History] Pramipexole Di-HCl [Mirapex] 0.75 mg PO HS 06/28/15 [History] Sertraline HCl [Zoloft] 50 mg PO DAILY 06/28/15 [History] buPROPion XL [Wellbutrin XL] 300 mg PO DAILY 06/28/15 [History] Naproxen Sodium [Aleve] 220 mg PO BID 11/21/15 [History] Acetaminophen [Tylenol] 1,000 mg PO Q6HR PRN 08/24/16 [History] Aspirin [Adult Low Dose Aspirin EC] 81 mg PO HS 08/24/16 [History] Furosemide [Lasix] 40 mg PO DAILY 08/24/16 [History] OXcarbazepine [Trileptal] 150 mg PO BID 08/24/16 [History] Umeclidinium [place] [Incruse Ellipta] 1 puff INHALATION RT-DAILY PRN 08/24/16 [ History] Warfarin Sodium [Coumadin] 7.5 mg PO DAILY #30 tablet 08/28/16 [Rx] Follow up Appointment(s)/Referral(s): Obdulio Grimaldo MD [Primary Care Provider] - 1-2 days Benjie Day MD [STAFF PHYSICIAN] - 1 Week Discharge Disposition: HOME SELF-CARE
--- NOTE | 2016-08-28 11:42 | P.PN ---
Subjective Principal diagnosis: Pulmonary embolism 70-year-old female patient is very well-known to me with previous history of multiple medical problems including a history of pulmonary embolism that occurred back in 2006 who came in yesterday to the emergency department complaining of a right-sided chest pain and posterior back pain that was worse with breathing and out of the state was pleuritic in nature. The patient stated that she is unable to take deep breaths due to the pain and the increased shortness of breath. The patient adequate taken off Coumadin approximately 5 months ago. She stopped it because she was getting tired of monitoring the levels. She was hemodynamically stable and the burst department. She was afebrile. Her pulse ox was 95% on 2 L of oxygen nasal cannula. EKG showed no ST segment changes. CAT scan of the chest showed bilateral pulmonary embolismIn addition to atelectatic changes in the lung bases and there are some consolidation of the right lower lobe probably later to an underlying pulmonary embolism. For all this reasons, the patient was hospitalized and the patient was started on IV heparin and pulmonary consultation was requested. Reevaluated today on 08/26/2016, patient is doing well, relatively asymptomatic, tolerating anticoagulation therapy including heparin and Coumadin quite well. No shortness of breath, no chest pain, no fever, no chills, no hemoptysis. PTT is therapeutic at 62.6, INR remains low at 1.1. Reevaluated today on 08/27/2016, patient is doing quite well, asymptomatic, no cough no wheezing no shortness of breath and no chest pain. PTT is still subtherapeutic, INR of 1.6. Hence the patient will be given another dose of Coumadin 10 mg tonight, and most likely the patient will be therapeutic by tomorrow, and then she could be discharged home tomorrow on Coumadin. The patient is seen again today 08/28/2016 in follow-up on the selective care unit. She is awake and alert in no acute distress. She's been up ambulating with without any difficulties. She denies any shortness of breath, cough or congestion. Her right-sided chest discomfort has subsided. She is maintaining good O2 saturations in the upper 90s on room air. She's been hemodynamically stable. Afebrile. She is therapeutic on her INR of 2.7 today. She is anxious to go home. Objective - Vital Signs Vital signs: Vital Signs Temp 97.2 F L 08/28/16 08:00 Pulse 74 08/28/16 08:34 Resp 18 08/28/16 08:00 BP 185/92 08/28/16 08:00 Pulse Ox 96 08/28/16 08:34 Intake & Output 08/27/16 08/28/16 08/28/16 18:59 06:59 18:59 Intake Total 840 500 240.795 Output Total 300 300 Balance 540 200 240.795 Weight 103.6 kg Intake: Intake, IV Titration 500 0.795 Amount Heparin Sodium,Porcine/ 500 0.795 D5w Pmx 25,000 unit In Dextrose/Water 1 500ml. bag @ 18 UNITS/KG/HR 35. 76 mls/hr IV .[id number] [facility] Rx#:[id number] Oral 840 240 Output: Urine 300 300 Other: Voiding Method Toilet # Voids 3 1 - Exam GENERAL EXAM: Alert, active, comfortable in no apparent distress. HEAD: Normocephalic. EYES: Normal reaction of pupils, equal size. NOSE: Clear with pink turbinates. THROAT: No erythema or exudates. NECK: No masses, no JVD. CHEST: No chest wall deformity. LUNGS: Equal air entry with no crackles, wheeze, rhonchi or dullness. CVS: S1 and S2 normal with no audible murmurs, regular rhythm. ABDOMEN: No hepatosplenomegaly, normal bowel sounds, no guarding or rigidity. SPINE: No scoliosis or deformity SKIN: No rashes CENTRAL NERVOUS SYSTEM: No focal deficits, tone is normal in all 4 extremities. Extremities: There is no peripheral edema. No clubbing, no cyanosis. Peripheral pulses are intact. - Labs CBC & Chem 7: 08/28/16 07:38 08/28/16 07:35 Labs: Abnormal Lab Results - Last 24 Hours (Table) 08/28/16 08/28/16 Range/Units 07:35 07:35 PT 26.0 H (9.0-12.0) sec Sodium 136 L (137-145) mmol/L Glucose 115 H (74-99) mg/dL Assessment and Plan Plan: Impression: 1 acute but the pulmonary embolism with secondary pleuritic chest pain and shortness of breath. This is a recurrent event. The patient is known to have underlying hypercoagulable state and previous pulmonary embolism. She will need lifelong anticoagulation. Her INR is therapeutic at 2.7 today. 2 severe symptomatic obstructive sleep apnea with an AHI of 106 currently on a CPAP pressure of 12 cm of water. 3 previous history of pulmonary embolism in 2006 4 hypercoagulable state with previous MTHFR are gene abnormalities and the patient was taken lifelong anticoagulation with warfarin 5 osteoarthritis 6 osteoarthritis 7 spondylolisthesis 8 fibromyalgia 9 cervical cancer resected 10 spondylolisthesis 11 depression 13 hypothyroidism 14 chronic anemia 15 acid reflux 16 osteoporosis 17 seasonal rhinitis Plan: The patient was seen and evaluated by Dr. Funez. She is cleared for discharge from the pulmonary standpoint. She'll follow-up in our office in 1-2 weeks' time. She sees Dr. Day for her sleep apnea. She plans to follow with Dr. Obdulio Grimaldo regarding her INR and warfarin dosing. She is encouraged to call sooner with any recurrence of symptoms or any other questions or concerns.
== END 2016-08-28 11:19 | disposition home or self-care (01) | DRG 176 ==
LOC: EC 11:12 → 6SEL 14:29
PROVIDERS: ADMIT Family Medicine; ATTEND Family Medicine
DX: I26.99 Other pulmonary embolism without acute cor pulmonale (principal); D68.59 Other primary thrombophilia; J44.9 Chronic obstructive pulmonary disease, unspecified; F11.20 Opioid dependence, uncomplicated; M48.02 Spinal stenosis, cervical region; G47.33 Obstructive sleep apnea (adult) (pediatric); F32.9 Major depressive disorder, single episode, unspecified; E03.9 Hypothyroidism, unspecified; K21.9 Gastro-esophageal reflux disease without esophagitis; M79.7 Fibromyalgia; M19.91 Primary osteoarthritis, unspecified site; M81.0 Age-related osteoporosis without current pathological fracture; E66.9 Obesity, unspecified; G89.29 Other chronic pain; M43.10 Spondylolisthesis, site unspecified; E78.5 Hyperlipidemia, unspecified; F43.10 Post-traumatic stress disorder, unspecified; G25.81 Restless legs syndrome; I10 Essential (primary) hypertension; J30.9 Allergic rhinitis, unspecified; M06.9 Rheumatoid arthritis, unspecified; D64.9 Anemia, unspecified; Z91.14 Patient's other noncompliance with medication regimen; Z86.711 Personal history of pulmonary embolism; Z85.43 Personal history of malignant neoplasm of ovary; Z85.41 Personal history of malignant neoplasm of cervix uteri; Z90.710 Acquired absence of both cervix and uterus; Z87.01 Personal history of pneumonia (recurrent); Z87.891 Personal history of nicotine dependence; Z96.642 Presence of left artificial hip joint; Z96.651 Presence of right artificial knee joint; Z90.49 Acquired absence of other specified parts of digestive tract; Z79.01 Long term (current) use of anticoagulants; Z79.51 Long term (current) use of inhaled steroids; Z79.82 Long term (current) use of aspirin; Z79.899 Other long term (current) drug therapy; Z79.1 Long term (current) use of non-steroidal anti-inflammatories (NSAID); Z91.041 Radiographic dye allergy status; Z88.7 Allergy status to serum and vaccine; Z91.048 Other nonmedicinal substance allergy status
CPT/HCPCS: 36415; 71020; 71275; 80048; 80053; 82550; 82553; 84484; 85025; 85027; 85379; 85610; 85730; 93005; 93970; 94640; 94760

== ENCOUNTER → 2016-08-29 | Outpatient (CLI) | payer MEDICARE, OTHER ==
[2016-08-29 10:26] LABS: INR 3.9 (<1.1); Prothrombin Time 38.2 sec (9.0-12.0)
[2016-08-29 10:35] LABS: Anion Gap 7 mmol/L; Blood Urea Nitrogen 10 mg/dL (7-17); Carbon Dioxide 29 mmol/L (22-30); Chloride 100 mmol/L (98-107); Non-African American GFR(MDRD) >60 (>60 ml/min/1.73 sqM); Potassium 4.5 mmol/L (3.5-5.1); Sodium 136 mmol/L (137-145)
== END | disposition home or self-care (01) ==
LOC: LABWHC1 09:59
PROVIDERS: ATTEND Family Medicine
DX: I26.99 Other pulmonary embolism without acute cor pulmonale (principal); I10 Essential (primary) hypertension
CPT/HCPCS: 36415; 80051; 82565; 84520; 85610

== ENCOUNTER → 2016-10-02 | Outpatient (CLI) | payer MEDICARE, OTHER ==
--- NOTE | 2016-10-02 12:04 | XR ---
EXAMINATION TYPE: XR chest 2V DATE OF EXAM: 10/02/2016 COMPARISON: 09/02/2016 TECHNIQUE: PA and lateral views submitted. HISTORY: History of pulmonary embolus FINDINGS: The lungs are clear and there is no pneumothorax, pleural effusion, or focal pneumonia. Postsurgica l change bilateral shoulder. Atherosclerotic change aorta. Subsegmental linear changes left lung base. Bilateral pleural-based thi ckening. Sclerosis involving the right clavicle stable. No overt failure. Hyperinflation suggests TALENT ENGINEER D. IMPRESSION: 1. No acute process. Chronic appearing subsegmental changes at the left lung base. Atelectasis favore d over infiltrate. No interval change.
== END | disposition home or self-care (01) ==
LOC: RADXRMAIN 11:28
PROVIDERS: ATTEND Family Medicine
DX: J98.11 Atelectasis (principal); R91.8 Other nonspecific abnormal finding of lung field
CPT/HCPCS: 71020

== ENCOUNTER 2016-12-05 09:08 | Day surgery (SDC) | payer MEDICARE, OTHER ==
[2016-12-03 12:05] VITALS: BMI 37.4
[~2016-12-05 09:08] MED LIST changes: +LACTATED RINGERS 1,000 ML IV SCH; -REGADENOSON 0.4 MG/5 ML SYRINGE IV ONE
[2016-12-05 10:09] VITALS: TEMP 98.2
[2016-12-05] MEDS ORDERED: LIDOCAINE 1% 20 ML VIAL (10MG/ML) FOR IV START INTRADERMA ONE (10:22)
[2016-12-05] MEDS ORDERED: LIDOCAINE 1% INJ 10MG/ML (20 ML MDV) ONE (11:06)
[2016-12-05] MEDS ORDERED: PROPOFOL 10 MG/ML 20 ML VIAL IV ONE (11:06)
--- NOTE | 2016-12-05 11:10 | P.GSHP ---
History of Present Illness H&P Date: 12/05/16 Chief Complaint: GERD, dysphagia This is a 71-year-old female referred from Dr. Obdulio Riojas. Patient has completed. Dysphagia. She had a hiatal hernia repair in 2002 while living in [place]. Patient developed increasing dysphagia. She does today for EGD. - Constitutional Constitutional: Reports as per HPI Past Medical History Past Medical History: Asthma, Blood Disorder, Cancer, COPD, Fibromyalgia, GERD/ Reflux, Hyperlipidemia, Hypertension, Musculoskeletal Disorder, Pneumonia, Pulmonary Embolus (PE), Rheumatoid Arthritis (RA), Sleep Apnea/CPAP/BIPAP, Thyroid Disorder Additional Past Medical History / Comment(s): uses CPAP,recent pulmonary embolism in August 2016, coagulopathy w/MTHFR gene, spondylolisthesis & stenosis , osteoporosis, cervical cancer, IBS, takes trileptal for fibromyalgia History of Any Multi-Drug Resistant Organisms: None Reported Past Surgical History: Breast Surgery, Cholecystectomy, Hysterectomy, Joint Replacement, Orthopedic Surgery Additional Past Surgical History / Comment(s): Rotator cuff repair 2011, the placement of the proximal knuckles to the third and the fourth digit in 2010, left hip replacement x 2, left shoulder, right knee replacement, bilateral knee arthroscopy, right elbow surgery, hiatal hernia repair,multiple fatty tumors removed, cataracts removed Past Anesthesia/Blood Transfusion Reactions: No Reported Reaction Smoking Status: Former smoker - Past Family History Mother Family Medical History: Cancer Additional Family Medical History / Comment(s): non Hodgekins LYMPHOMA Medications and Allergies Home Medications Medication Instructions Recorded Confirmed Type Albuterol Sulfate [Proair Hfa] 2 puff INHALATION RT-Q4H PRN 06/28/15 12/03/16 History Carvedilol [Coreg] 6.25 mg PO BID 06/28/15 12/03/16 History Fexofenadine HCl [Melany Allergy] 180 mg PO DAILY 06/28/15 12/03/16 History Fluticasone/Salmeterol [Advair 1 puff INHALATION RT-BID 06/28/15 12/03/16 History 250-50 Diskus] HYDROcodone/APAP 10-325MG [[place] 1 tab PO Q6HR PRN 06/28/15 12/05/16 History 10-325] Levothyroxine Sodium [Synthroid] 50 mcg PO SUTUTHSA 06/28/15 12/05/16 History Levothyroxine Sodium [Synthroid] 75 mcg PO MOWEFR 06/28/15 12/03/16 History Montelukast [Singulair] 10 mg PO HS 06/28/15 12/03/16 History Omeprazole 40 mg PO HS 06/28/15 12/03/16 History Potassium Chloride [K-Tab ER] 20 meq PO DAILY 06/28/15 12/03/16 History Pramipexole Di-HCl [Mirapex] 0.75 mg PO HS 06/28/15 12/03/16 History Sertraline HCl [Zoloft] 50 mg PO DAILY 06/28/15 12/03/16 History buPROPion XL [Wellbutrin XL] 300 mg PO DAILY 06/28/15 12/03/16 History Acetaminophen [Tylenol] 1,000 mg PO Q6HR PRN 08/24/16 12/03/16 History Aspirin [Adult Low Dose Aspirin EC] 81 mg PO HS 08/24/16 12/03/16 History Furosemide [Lasix] 40 mg PO DAILY 08/24/16 12/03/16 History OXcarbazepine [Trileptal] 150 mg PO BID 08/24/16 12/03/16 History Umeclidinium [place] [Incruse 1 puff INHALATION RT-DAILY 08/24/16 12/03/16 History Ellipta] Dicyclomine [Bentyl] 10 mg PO [facility] 12/03/16 12/03/16 History Simvastatin [Zocor] 20 mg PO HS 12/03/16 12/03/16 History Warfarin Sodium [Coumadin] 7.5 mg PO SUMOWEFR 12/03/16 12/03/16 History Warfarin [Coumadin] 5 mg PO TUTHSA 12/03/16 12/03/16 History Allergies Allergy/AdvReac Type Severity Reaction Status Date / Time tetanus and diphtheria Allergy Severe Anaphylaxis Verified 12/05/16 10:29 toxoids [tetanus & diphtheria toxoids] Iodinated Contrast- Oral and Allergy Anaphylaxis Verified 12/05/16 10:29 IV Dye nick AdvReac Unknown ASTHMA Verified 12/05/16 10:29 ATTACK perfume AdvReac Unknown ASTHMA Verified 12/05/16 10:29 ATTACK Milk Containing Products AdvReac causes IBS Verified 12/05/16 10:29 [Dairy] symptoms mold AdvReac Itching Verified 12/05/16 10:29 pollen extracts AdvReac Itching Verified 12/05/16 10:29 Surgical - Exam Vital Signs Temp Pulse Resp BP Pulse Ox 98.2 F 52 L 18 137/75 95 12/05/16 10:06 12/05/16 10:06 12/05/16 10:06 12/05/16 10:06 12/05/16 10:06 - General well developed, no distress - Eyes PERRL - ENT normal pinna - Neck no masses - Respiratory normal expansion - Cardiovascular Rhythm: regular - Abdomen Abdomen: soft, non tender Assessment and Plan Plan: GERD, dysphagia. We'll perform EGD.
--- NOTE | 2016-12-05 11:17 | P.OP ---
Date of Procedure: 12/05/16 Preoperative Diagnosis: GERD Dysphagia Postoperative Diagnosis: Recurrent hiatal hernia Mild esophagitis Mild antral gastritis Procedure(s) Performed: EGD Anesthesia: MAC Surgeon: Reg Anderson Pathology: other (Antrum, esophagus) Condition: stable Disposition: PACU Description of Procedure: The patient's placed on the endoscopy table in the lateral position. She received IV sedation. The gastroscope placed oropharynx and passed in the esophagus and stomach. Scope was then placed through the pylorus. The first and second portion of duodenum appeared normal. Scope was then brought back the antrum and this appeared mildly inflamed. The scope was unretroflexed and remainder of the stomach appeared normal. There was a recurrent hiatal hernia visualized. The GE junction was at 38 cm. The distal esophagus was mildly inflamed a biopsies performed. The proximal esophagus. Normal. The scope was withdrawn from patient.
[2016-12-05 11:42] VITALS: BP 140/68; PULSE 67; RESP 18
== END 2016-12-05 12:03 | disposition home or self-care (01) ==
LOC: ORWHC2ENDO 09:08
PROVIDERS: ATTEND Surgery
DX: K20.0 Eosinophilic esophagitis (principal); K21.0 Gastro-esophageal reflux disease with esophagitis; K29.50 Unspecified chronic gastritis without bleeding; K44.9 Diaphragmatic hernia without obstruction or gangrene; J44.9 Chronic obstructive pulmonary disease, unspecified; M79.7 Fibromyalgia; E78.5 Hyperlipidemia, unspecified; I10 Essential (primary) hypertension; M06.9 Rheumatoid arthritis, unspecified; G47.33 Obstructive sleep apnea (adult) (pediatric); Z99.89 Dependence on other enabling machines and devices; Z86.711 Personal history of pulmonary embolism; M81.0 Age-related osteoporosis without current pathological fracture; Z87.891 Personal history of nicotine dependence; Z79.01 Long term (current) use of anticoagulants; E07.9 Disorder of thyroid, unspecified; Z79.82 Long term (current) use of aspirin; Z79.51 Long term (current) use of inhaled steroids; Z79.899 Other long term (current) drug therapy; Z91.041 Radiographic dye allergy status; Z91.011 Allergy to milk products; Z88.7 Allergy status to serum and vaccine; Z91.09 Other allergy status, other than to drugs and biological substances
CPT/HCPCS: 88305; 88342; 43239; J2001; J2704

== ENCOUNTER → 2017-01-07 | Outpatient (CLI) | payer MEDICARE, OTHER ==
[2017-01-07 11:48] LABS: Basophils % (A) 1 %; CH 28.7; CHCM 31.6; Eosinophils # (A) 0.1 k/uL (0-0.7); Eosinophils % (A) 2 %; HCT 46.8 % (34.0-46.0); HDW 2.26; HGB 14.8 gm/dL (11.4-16.0); Luc # (Auto) 0.12; Luc % (Auto) 1; Lymphocytes # (A) 1.1 k/uL (1.0-4.8); Lymphocytes % (A) 14 %; MCH 28.8 pg (25.0-35.0); MCHC 31.5 g/dL (31.0-37.0); MCV 91.3 fL (80.0-100.0); Monocytes # (A) 0.5 k/uL (0-1.0); Monocytes % (A) 6 %; Neutrophils # (A) 6.1 k/uL (1.3-7.7); Neutrophils % (A) 76 %; RBC 5.13 m/uL (3.80-5.40); RDW 15.2 % (11.5-15.5); WBC (Perox) 7.74
[2017-01-07 12:03] LABS: INR 1.1 (<1.2); Prothrombin Time 11.2 sec (9.0-12.0)
== END | disposition home or self-care (01) ==
LOC: LABPAT 11:16
PROVIDERS: ATTEND Anesthesiology
DX: Z01.812 Encounter for preprocedural laboratory examination (principal); Z79.01 Long term (current) use of anticoagulants
CPT/HCPCS: 36415; 85025; 85610

== ENCOUNTER 2017-01-09 10:22 | Day surgery (SDC) | payer MEDICARE, OTHER ==
[2017-01-06 09:55] VITALS: BMI 36.8
[~2017-01-09 10:22] MED LIST changes: +DEXAMETHASONE SOD PHOSPHATE 10 MG/ML 1 ML VIAL IV ONE; +HEPARIN SODIUM,PORCINE 5,000 UNIT/ML 1 ML VIAL SQ ONE; +MIDAZOLAM 2 MG/2 ML VIAL IV PRN; +ONDANSETRON 4 MG/2 ML VIAL IVP ONE; +ceFAZolin IN SWFI 2 GM/20 ML SYRINGE IVP ONE
--- NOTE | 2017-01-09 12:36 | P.GSHP ---
History of Present Illness H&P Date: 01/09/17 Chief Complaint: GERD This is a 71-year-old female for from Dr. Obdulio Riojas. Patient is today for laparoscopic repair of recurrent hiatal hernia. Patient a previous Bella fundoplication performed in [facility]. Approximately 15 years ago. She's had recurrent issues with GERD.The patient has had long-standing problems with reflux esophagitis. The patient underwent recent EGD is found have evidence of esophagitis. Patient has been well informed on the procedure of laparoscopic Bella fundoplication. The patient is aware the risk of the conversion to the open procedure, risk of injury to the stomach, liver and spleen. The patient is also a risk of recurrent GERD and dysphagia symptoms. The patient understands there is a postoperative diet of full liquids for 2 weeks after surgery. Past Medical History Past Medical History: Asthma, Blood Disorder, Cancer, COPD, Fibromyalgia, GERD/ Reflux, Hyperlipidemia, Hypertension, Musculoskeletal Disorder, Osteoarthritis ( OA), Pneumonia, Pulmonary Embolus (PE), Sleep Apnea/CPAP/BIPAP, Thyroid Disorder Additional Past Medical History / Comment(s): pulmonary embolism in August 2016 and 2011, coagulopathy w/MTHFR gene, spondylolisthesis & stenosis, osteoporosis , cervical cancer, IBS, takes trileptal for fibromyalgia, varicose veins, hiatal hernia History of Any Multi-Drug Resistant Organisms: None Reported Past Surgical History: Breast Surgery, Cholecystectomy, Heart Catheterization, Hysterectomy, Joint Replacement, Orthopedic Surgery Additional Past Surgical History / Comment(s): rt Rotator cuff repair, left hip replacement x 2, left shoulder replacement, right knee replacement, bilateral knee arthroscopy, right elbow surgery, multiple fatty tumors removed, zack cataracts removed, laproscopic hiatal hernia surgery, rt hand surgery- knuckles, mass removed from rt breast Past Anesthesia/Blood Transfusion Reactions: Family History of Problems w/ Anesthesia Additional Past Anesthesia/Blood Transfusion Reaction / Comment(s): "woke up with a sore jaw" Smoking Status: Former smoker - Past Family History Mother Family Medical History: Cancer Additional Family Medical History / Comment(s): . Medications and Allergies Home Medications Medication Instructions Recorded Confirmed Type Albuterol Sulfate [Proair Hfa] 2 puff INHALATION Q4HR PRN 06/28/15 01/09/17 History Carvedilol [Coreg] 6.25 mg PO BID 06/28/15 01/09/17 History Fexofenadine HCl [Melany Allergy] 180 mg PO DAILY 06/28/15 01/09/17 History HYDROcodone/APAP 10-325MG [[place] 1 tab PO Q6HR PRN 06/28/15 01/09/17 History 10-325] Levothyroxine Sodium [Synthroid] 50 mcg PO MOWEFR 06/28/15 01/09/17 History Levothyroxine Sodium [Synthroid] 75 mcg PO SUTUTHSA 06/28/15 01/09/17 History Montelukast [Singulair] 10 mg PO HS 06/28/15 01/09/17 History Omeprazole 40 mg PO HS 06/28/15 01/09/17 History Potassium Chloride [K-Tab ER] 20 meq PO DAILY 06/28/15 01/09/17 History Pramipexole Di-HCl [Mirapex] 0.75 mg PO HS 06/28/15 01/09/17 History Sertraline HCl [Zoloft] 50 mg PO DAILY 06/28/15 01/09/17 History buPROPion XL [Wellbutrin XL] 300 mg PO DAILY 06/28/15 01/09/17 History Acetaminophen [Tylenol] 1,000 mg PO Q6HR PRN 08/24/16 01/09/17 History Aspirin [Adult Low Dose Aspirin EC] 81 mg PO HS 08/24/16 01/09/17 History Furosemide [Lasix] 40 mg PO DAILY 08/24/16 01/09/17 History OXcarbazepine [Trileptal] 150 mg PO BID 08/24/16 01/09/17 History Dicyclomine [Bentyl] 10 mg PO ACHS 12/03/16 01/09/17 History Simvastatin [Zocor] 20 mg PO HS 12/03/16 01/09/17 History Warfarin Sodium [Coumadin] 7.5 mg PO SUMOWEFR 12/03/16 01/09/17 History Warfarin [Coumadin] 5 mg PO TUTHSA 12/03/16 01/09/17 History Albuterol Nebulized [Ventolin 2.5 mg INHALATION QID PRN 01/06/17 01/09/17 History Nebulized] Fluticasone/Salmeterol [Advair 1 inhalation PO BID 01/06/17 01/09/17 History 250-50 Diskus] Umeclidinium [place] [Incruse 1 puff INHALATION QAM 01/06/17 01/09/17 History Ellipta] Allergies Allergy/AdvReac Type Severity Reaction Status Date / Time tetanus and diphtheria Allergy Severe Anaphylaxis Verified 01/09/17 11:52 toxoids [tetanus & diphtheria toxoids] Iodinated Contrast- Oral and Allergy Anaphylaxis Verified 01/09/17 11:52 IV Dye nick AdvReac Unknown ASTHMA Verified 01/09/17 11:52 ATTACK perfume AdvReac Unknown ASTHMA Verified 01/09/17 11:52 ATTACK Milk Containing Products AdvReac causes IBS Verified 01/09/17 11:52 [Dairy] symptoms mold AdvReac Itching Verified 01/09/17 11:52 pollen extracts AdvReac Itching Verified 01/09/17 11:52 Surgical - Exam Vital Signs Temp Pulse Resp BP Pulse Ox 97.0 F L 54 L 18 146/70 95 01/09/17 12:08 01/09/17 12:08 01/09/17 12:08 01/09/17 12:08 01/09/17 12:08 - General well developed, no distress - Eyes PERRL - ENT normal pinna - Neck no masses - Respiratory normal expansion - Cardiovascular Rhythm: regular - Abdomen Abdomen: soft, non tender Assessment and Plan Assessment: GERD Recurrent hiatal hernia We'll perform laparoscopic repair of hiatal hernia. The risk of adhesions.
[2017-01-09 12:51] LABS: Prothrombin Time 10.6 sec (9.0-12.0)
[2017-01-09] MEDS ORDERED: ROCURONIUM BROMIDE 10 MG/ML 10 ML VIAL IV ONE (12:57)
[2017-01-09] MEDS ORDERED: ePHEDrine SULFATE/0.9% NACL/PF 50 MG/5 ML SYRINGE IV ONE (12:57)
[2017-01-09] MEDS ORDERED: PROPOFOL 10 MG/ML 20 ML VIAL IV ONE (12:57)
[2017-01-09] MEDS ORDERED: MIDAZOLAM 2 MG/2 ML VIAL ONE (12:57)
[2017-01-09] MEDS ORDERED: fentaNYL (PF) 50 MCG/ML 2 ML AMP ONE (12:57)
[2017-01-09] MEDS ORDERED: SUCCINYLCHOLINE CHLORIDE 100 MG/5 ML SYR IV ONE (12:57)
[2017-01-09] MEDS ORDERED: NEOSTIGMINE 1 MG/ML 10 ML VIAL ONE (12:57)
[2017-01-09] MEDS ORDERED: GLYCOPYRROLATE 0.2 MG/ML 2 ML VIAL ONE (12:57)
[2017-01-09] MEDS ORDERED: LIDOCAINE 1% INJ 10MG/ML (20 ML MDV) ONE (12:57)
[2017-01-09] MEDS ORDERED: BUPIVACAINE (PF) 0.25% 30 ML VIAL SQ ONE (13:26)
--- NOTE | 2017-01-09 14:28 | P.OP ---
Date of Procedure: 01/09/17 Preoperative Diagnosis: GERD Postoperative Diagnosis: Recurrent hiatal hernia Procedure(s) Performed: Laparoscopic hiatal hernia repair Laparoscopic lysis of adhesions Anesthesia: WENDI Surgeon: Reg Anderson Estimated Blood Loss (ml): 20 Pathology: none sent Condition: stable Disposition: PACU Description of Procedure: Patient's placed on the operative table in the supine position. She received IV sedation and then general anesthesia she was placed in dorsal 5 position. Her abdomen was prepped and draped usual sterile fashion. A 5 mm optical trochars placed under direct vision in the left periumbilical area and then the abdomen was insufflated. Next another 5 mm trochars placed in the right lateral and left lateral position another 5 mm trocar was placed in the left epigastric and right epigastric position. The stomach was examined. The left lateral lobe of the liver was retracted. And then the adhesions to the left lobe of the liver were seen. These were lysed with sharp dissection. There did not appear to be evidence of a fundal plication wrap. The benjamin were dissected and there was evidence of a hiatal hernia. Several times not devices were removed during the benjamin dissection. At this point the benjamin was dissected and then the esophagus appeared to be within esophagus appeared to be within the abdominal cavity. The stomach was insufflated with methylene blue placed via a orogastric tube. There is no incision any extravasation. The crural defect was then closed with 2-0 Ethibond suture. This was secured with a tie knot device. At this point it was decided not to perform a fundal plication wrap. The abdomen was irrigated. There is no bleeding seen. There is known to any injury to the stomach or liver or esophagus. Trochars withdrawn. It was closed interrupted 3-0 Monocryl suture. Dermabond was applied.
[2017-01-09] MEDS ORDERED: ONDANSETRON 4 MG/2 ML VIAL IVP PRN (14:29)
[2017-01-09] MEDS: HYDROmorphone 0.5 MG/0.5 ML SYRINGE IVP PRN ×4 (14:32→14:49)
[2017-01-09] MEDS ORDERED: hydrALAZINE HCL 20 MG/ML 1 ML VIAL IV ONE (14:57)
[2017-01-09 15:20] LABS: Basophils % (A) 0 %; CH 29.3; CHCM 31.5; Eosinophils # (A) 0.1 k/uL (0-0.7); Eosinophils % (A) 1 %; HDW 2.27; HGB 13.5 gm/dL (11.4-16.0); Luc # (Auto) 0.04; Luc % (Auto) 0; Lymphocytes # (A) 0.5 k/uL (1.0-4.8); Lymphocytes % (A) 5 %; MCH 30.1 pg (25.0-35.0); MCHC 32.2 g/dL (31.0-37.0); MCV 93.7 fL (80.0-100.0); Monocytes # (A) 0.2 k/uL (0-1.0); Monocytes % (A) 2 %; Neutrophils # (A) 9.1 k/uL (1.3-7.7); Neutrophils % (A) 92 %; RBC 4.49 m/uL (3.80-5.40); RDW 15.4 % (11.5-15.5); WBC 9.9 k/uL (3.8-10.6); WBC (Perox) 10.68
[2017-01-09] MEDS: HYDROmorphone 2 MG/ML 1 ML SYRINGE IVP PRN ×2 (16:49→21:00)
[2017-01-09] MEDS: DICYCLOMINE 10 MG CAP PO SCH ×2 (18:14→20:55)
[2017-01-09] MEDS: METOCLOPRAMIDE 5 MG/ML 2 ML VIAL IVP SCH (18:16)
[2017-01-09] MEDS ORDERED: ALBUTEROL NEBULIZED 2.5 MG/3 ML INHALATION PRN (19:32)
[2017-01-09] MEDS ORDERED: ACETAMINOPHEN TAB 500 MG TAB PO PRN (19:32)
[2017-01-09] MEDS ORDERED: WARFARIN 5 MG TAB PO SCH (20:00)
[2017-01-09] MEDS: D5-0.45% NACL WITH KCL 20MEQ/L 1,000 ML IV SCH (20:53)
[2017-01-09] MEDS ORDERED: MONTELUKAST 10 MG TAB PO SCH (21:00)
[2017-01-09] MEDS: ceFAZolin IN SWFI 2 GM/20 ML SYRINGE IVP SCH (21:00)
[2017-01-09] MEDS ORDERED: PRAMIPEXOLE 0.25 MG TAB PO SCH (21:00)
[2017-01-09] MEDS ORDERED: PANTOPRAZOLE 40 MG TABLET PO SCH (21:00)
[2017-01-09] MEDS ORDERED: ATORVASTATIN 10 MG TAB PO SCH (21:00)
[2017-01-09] MEDS: OXcarbazepine 150 MG TAB PO SCH (21:08)
[2017-01-09] MEDS: SYMBICORT 80-4.5 MCG INHALER INHALATION SCH (21:28)
[2017-01-10] MEDS: METOCLOPRAMIDE 5 MG/ML 2 ML VIAL IVP SCH ×3 (00:24→12:06)
[2017-01-10 00:48] VITALS: RESP 20
[2017-01-10] MEDS: HYDROmorphone 2 MG/ML 1 ML SYRINGE IVP PRN (01:52)
--- NOTE | 2017-01-10 05:22 | CONS ---
CONSULTATION CHIEF COMPLAINT: A 71-year-old white female status post Bella procedure for medical management consult. Blood pressure remains elevated 150s over 70s. She is having incisional pain. No chest pain or shortness of breath. No lightheadedness, syncope. ALLERGIES: Allergies are to TETANUS, RUIZ, PERFUME, MILK, MOLD, POLLEN EXTRACTS. MEDICATIONS: Home medicines include: 1. Wellbutrin XL 300 daily. 2. Coumadin 5 mg 3 days a week, 7.5 mg 4 days a week. 3. Incruse Ellipta 1 puff daily. 4. Zocor 20 daily. 5. Zoloft 50 daily. 6. Mirapex 0.75 q.h.s. 7. K-Tab ER 20 mEq daily. 8. Omeprazole 40 mg daily. 9. Trileptal 150 b.i.d. 10.Singulair 10 daily. 11.Synthroid 75 mcg daily on 4 days a week and 50 mcg 3 days a week. 12.[place] 11/324 every 6 hours. 13.Lasix 40 mg daily. 14.Advair 250/50 one puff b.i.d. 15.Melany 180 daily. 16.Bentyl 10 mg a.c. and at bedtime. 17.Coreg 6.25 b.i.d. 18.Aspirin 81 mg daily. 19.ProAir HFA 2 puffs q.4 hours p.r.n. PAST MEDICAL HISTORY: She has a history of atrial fibrillation, pulmonary embolisms, depression, dyslipidemia, hypothyroidism, asthma/COPD, irritable bowel syndrome, hypertension. REVIEW OF SYSTEMS: Fourteen point review of systems negative except for mentioned in HPI. PHYSICAL EXAMINATION: VITAL SIGNS: As mentioned, blood pressure 150s over 70s, respiration 12 to 16. CARDIOVASCULAR: S1, S2. LUNGS: Clear. GI: Soft. HEMATOLOGY: Negative Homans. PSYCH: Fair mood and affect. VASCULAR: Normal dorsalis pedis, posterior tibial pulse. ASSESSMENT: 1. As mentioned above, status post Bella. 2. Depression. 3. Hypothyroidism. 4. History of pulmonary embolism. 5. Asthma. 6. Irritable bowel syndrome. 7. Dyslipidemia. PLAN: Continue current treatments. Restart all her home medicines. Restart Coumadin, Typical postop Bella care. Thank you Dr. Anderson. MMODL / IJN: [id number] /
[2017-01-10] MEDS: ceFAZolin IN SWFI 2 GM/20 ML SYRINGE IVP SCH (05:26)
[2017-01-10] MEDS ORDERED: LEVOTHYROXINE 50 MCG TAB PO SCH (06:30)
[2017-01-10] MEDS: LEVOTHYROXINE 25 MCG TAB PO SCH ×2 (06:33→06:35)
[2017-01-10] MEDS: D5-0.45% NACL WITH KCL 20MEQ/L 1,000 ML IV SCH ×2 (06:34→12:06)
[2017-01-10] MEDS ORDERED: diphenhydrAMINE 50 MG/ML 1 ML VIAL IM STA (06:46)
[2017-01-10] MEDS ORDERED: diphenhydrAMINE 50 MG CAP PO STA (07:24)
[2017-01-10] MEDS ORDERED: CARVEDILOL 6.25 MG TAB PO SCH (07:30)
[2017-01-10] MEDS: IPRATROPIUM 0.5 MG/2.5 ML NEBU INHALATION SCH ×2 (08:37→11:49)
[2017-01-10] MEDS: SYMBICORT 80-4.5 MCG INHALER INHALATION SCH (08:38)
--- NOTE | 2017-01-10 08:56 | PN ---
PROGRESS NOTE SUBJECTIVE: A 71-year-old white female status post Bella. All her home medicines have been given. Her blood pressure is improved today. She is scheduled for a swallow evaluation and possible discharge later today. Vital signs stable, afebrile. CARDIOVASCULAR: S1, S2. LUNGS: Clear. GI: Soft. HEMATOLOGY: Negative Homans. ASSESSMENT: 1. Status post Bella. 2. Gastroesophageal reflux disease. 3. Hypertension. 4. Dyslipidemia. 5. Hypothyroidism. 6. Osteoarthritis. 7. Obesity. Continue current medications for hypertension. Swallow evaluation is done and passed. She will be cleared to be discharged. She is medically stable. MMODL / IJN: [id number] /
[2017-01-10] MEDS ORDERED: buPROPion XL 300 MG TAB.ER.24H PO SCH (09:00)
[2017-01-10] MEDS ORDERED: ENOXAPARIN 40 MG/0.4 ML SYRINGE SQ SCH (09:00)
[2017-01-10] MEDS ORDERED: LORATADINE 10 MG TAB PO SCH (09:00)
[2017-01-10] MEDS ORDERED: POTASSIUM CHLORIDE ER 20 MEQ TAB.ER PO SCH (09:00)
[2017-01-10] MEDS ORDERED: SERTRALINE 50 MG TAB PO SCH (09:00)
[2017-01-10] MEDS ORDERED: FUROSEMIDE 40 MG TAB PO SCH (09:00)
[2017-01-10] MEDS: DICYCLOMINE 10 MG CAP PO SCH ×2 (09:16→12:26)
--- NOTE | 2017-01-10 09:41 | FL ---
EXAMINATION TYPE: FL esophagus cervic/pharynx DATE OF EXAM: 01/10/2017 HISTORY: Post revision of Bella fundoplication. COMPARISON: NONE TECHNIQUE: A single contrast esophagram is performed utilizing barium. 1.5 minutes of fluoroscopy ti me was utilized with 2 ounces of thin barium and 29 images saved. FINDINGS: The esophagus shows moderately delayed motility distally and moderately delayed emptying into the sto mach. With the distal esophagus mildly dilated and extending caudal to the gastroesophageal junction. No clearance was noted with gravity although focal clearance was obtained with utilization of 1 ounc e of water. No obstructing stricture noted. Intraesophageal reflux was identified although no gastroe sophageal reflux was present. IMPRESSION: Moderate obstruction at the gastroesophageal junction with incomplete clearance of depen dent distal esophageal contrast by intrinsic esophageal musculature and gravity alone. Focal clearanc e was obtained with 1 ounce of postprocedural water. Distal esophagus is noted to be caudal to the ga stroesophageal junction anatomically.
[2017-01-10] MEDS: OXcarbazepine 150 MG TAB PO SCH (10:11)
--- NOTE | 2017-01-10 12:01 | P.DS ---
Providers Expected date of discharge: 01/10/17 Attending physician: Reg Anderson Consults: 01/09/17 14:29 Consult Physician Routine Consulting Provider: Obdulio Grimaldo Consult Reason/Comments: Medical management Do you want consulting provider notified?: Yes Primary care physician: Obdulio Grimaldo [place] [facility] Course: 71-year-old female was admitted on elective admission to undergo laparoscopic repair of recurrent hiatal hernia. Patient had a previous Bella fundoplication performed in [facility] about 15 years ago. Patient has had recurrent issues with esophageal reflux disease. Has a long-standing problem with reflux esophagitis. Patient underwent a recent EGD was found to have evidence of esophagitis. Done on the January 09. On the day of discharge patient was up ambulatory no postop events. Follow-up upper GI showed no evidence of a leak patient was felt to be appropriate to be discharged patient was instructed to resume her home Coumadin dose this evening Impression discharge diagnosis Laparoscopic hiatal hernia repair with lysis of adhesions done January 09 Obesity BMI 36 Recurrent issues with esophageal reflux disease EGD recent showed evidence of esophagitis Previous history of bella fundoplication History of pulmonary emboli on anticoagulation History of coagulopathy with MTHFR The above impression and plan of care have been discussed and directed by signing physician. Nancy Brown nurse practitioner acting as scribe for signing physician. Plan - Discharge Summary New Discharge Prescriptions: Continue buPROPion XL [Wellbutrin XL] 300 mg PO DAILY Sertraline HCl [Zoloft] 50 mg PO DAILY Pramipexole Di-HCl [Mirapex] 0.75 mg PO HS Potassium Chloride [K-Tab ER] 20 meq PO DAILY Omeprazole 40 mg PO HS Montelukast [Singulair] 10 mg PO HS Levothyroxine Sodium [Synthroid] 75 mcg PO SUTUTHSA Levothyroxine Sodium [Synthroid] 50 mcg PO MOWEFR Carvedilol [Coreg] 6.25 mg PO BID HYDROcodone/APAP 10-325MG [[place] 10-325] 1 tab PO Q6HR PRN PRN Reason: Pain Albuterol Sulfate [Proair Hfa] 2 puff INHALATION Q4HR PRN PRN Reason: Shortness Of Breath Fexofenadine HCl [Melany Allergy] 180 mg PO DAILY Aspirin [Adult Low Dose Aspirin EC] 81 mg PO HS Acetaminophen [Tylenol] 1,000 mg PO Q6HR PRN PRN Reason: Pain OXcarbazepine [Trileptal] 150 mg PO BID Furosemide [Lasix] 40 mg PO DAILY Simvastatin [Zocor] 20 mg PO HS Dicyclomine [Bentyl] 10 mg PO ACHS Warfarin [Coumadin] 5 mg PO TUTHSA Warfarin Sodium [Coumadin] 7.5 mg PO SUMOWEFR Albuterol Nebulized [Ventolin Nebulized] 2.5 mg INHALATION QID PRN PRN Reason: sob Fluticasone/Salmeterol [Advair 250-50 Diskus] 1 inhalation PO BID Umeclidinium [place] [Incruse Ellipta] 1 puff INHALATION QAM Discharge Medication List Albuterol Sulfate [Proair Hfa] 2 puff INHALATION Q4HR PRN 06/28/15 [History] Carvedilol [Coreg] 6.25 mg PO BID 06/28/15 [History] Fexofenadine HCl [Melany Allergy] 180 mg PO DAILY 06/28/15 [History] HYDROcodone/APAP 10-325MG [[place] 10-325] 1 tab PO Q6HR PRN 06/28/15 [History] Levothyroxine Sodium [Synthroid] 50 mcg PO MOWEFR 06/28/15 [History] Levothyroxine Sodium [Synthroid] 75 mcg PO SUTUTHSA 06/28/15 [History] Montelukast [Singulair] 10 mg PO HS 06/28/15 [History] Omeprazole 40 mg PO HS 06/28/15 [History] Potassium Chloride [K-Tab ER] 20 meq PO DAILY 06/28/15 [History] Pramipexole Di-HCl [Mirapex] 0.75 mg PO HS 06/28/15 [History] Sertraline HCl [Zoloft] 50 mg PO DAILY 06/28/15 [History] buPROPion XL [Wellbutrin XL] 300 mg PO DAILY 06/28/15 [History] Acetaminophen [Tylenol] 1,000 mg PO Q6HR PRN 08/24/16 [History] Aspirin [Adult Low Dose Aspirin EC] 81 mg PO HS 08/24/16 [History] Furosemide [Lasix] 40 mg PO DAILY 08/24/16 [History] OXcarbazepine [Trileptal] 150 mg PO BID 08/24/16 [History] Dicyclomine [Bentyl] 10 mg PO ACHS 12/03/16 [History] Simvastatin [Zocor] 20 mg PO HS 12/03/16 [History] Warfarin Sodium [Coumadin] 7.5 mg PO SUMOWEFR 12/03/16 [History] Warfarin [Coumadin] 5 mg PO TUTHSA 12/03/16 [History] Albuterol Nebulized [Ventolin Nebulized] 2.5 mg INHALATION QID PRN 01/06/17 [ History] Fluticasone/Salmeterol [Advair 250-50 Diskus] 1 inhalation PO BID 01/06/17 [ History] Umeclidinium [place] [Incruse Ellipta] 1 puff INHALATION QAM 01/06/17 [History] Follow up Appointment(s)/Referral(s): Reg Anderson MD [STAFF PHYSICIAN] - 2 Weeks Activity/Diet/Wound Care/Special Instructions: Full liquid diet for 2 weeks after surgery No straws Stopped taking prilosec Discharge Disposition: HOME SELF-CARE
[2017-01-10 12:05] VITALS: BP 133/63; PULSE 65; TEMP 97.2
[2017-01-10] MEDS ORDERED: WARFARIN 7.5 MG TAB PO SCH (18:00)
== END 2017-01-10 13:02 | disposition home or self-care (01) ==
LOC: OR 10:22 → 6PED 14:16 → OR 01-10 13:02
PROVIDERS: ATTEND Surgery
DX: K44.9 Diaphragmatic hernia without obstruction or gangrene (principal); K21.0 Gastro-esophageal reflux disease with esophagitis; K66.0 Peritoneal adhesions (postprocedural) (postinfection); F32.9 Major depressive disorder, single episode, unspecified; E03.9 Hypothyroidism, unspecified; K58.9 Irritable bowel syndrome, unspecified; E78.5 Hyperlipidemia, unspecified; E72.12 Methylenetetrahydrofolate reductase deficiency; E66.9 Obesity, unspecified; Z68.36 Body mass index [BMI] 36.0-36.9, adult; M79.7 Fibromyalgia; J44.9 Chronic obstructive pulmonary disease, unspecified; G47.33 Obstructive sleep apnea (adult) (pediatric); Z86.711 Personal history of pulmonary embolism; Z91.011 Allergy to milk products; Z88.7 Allergy status to serum and vaccine; Z91.041 Radiographic dye allergy status; Z79.899 Other long term (current) drug therapy; Z79.01 Long term (current) use of anticoagulants; Z79.82 Long term (current) use of aspirin; Z87.891 Personal history of nicotine dependence
CPT/HCPCS: 43281; 49329; 94640 ×2; 94760; 85025; 85610; 74210; J2250; J1170 ×3; J0360; J1644; J1100; J2710; J2765 ×2; J0690 ×2; J2405; J2001; J1650; J3010; J0330; J2704

== ENCOUNTER 2017-04-04 07:48 | Day surgery (SDC) | payer MEDICARE, OTHER ==
[2017-04-03 11:18] VITALS: BMI 35.2
[~2017-04-04 07:48] MED LIST changes: +MORPHINE SULFATE 4 MG/ML SYRINGE IV PRN; +Pre Op ABX Message 1 EACH MISC MISCELLANE ONE; -ceFAZolin IN SWFI 2 GM/20 ML SYRINGE IVP ONE
[2017-04-04 08:25] VITALS: RESP 16; TEMP 98.3
[2017-04-04] MEDS ORDERED: LIDOCAINE 1% 20 ML VIAL (10MG/ML) FOR IV START INTRADERMA ONE (08:49)
[2017-04-04 09:05] LABS: INR 1.2 (<1.2); Prothrombin Time 11.8 sec (9.0-12.0)
--- NOTE | 2017-04-04 09:21 | P.GSHP ---
History of Present Illness H&P Date: 04/04/17 Chief Complaint: Right thigh lipomas This a 71-year-old female referred from Dr. Obdulio Riojas. Patient has developed several large right thigh lipomas. Lipomas measured 5-10 cm diameter. Patient has 4 lipomas on her anterior thigh. Patient will stay for excision. Past Medical History Past Medical History: Asthma, Blood Disorder, Cancer, COPD, Fibromyalgia, GERD/ Reflux, Hyperlipidemia, Hypertension, Musculoskeletal Disorder, Osteoarthritis ( OA), Pneumonia, Pulmonary Embolus (PE), Rheumatoid Arthritis (RA), Sleep Apnea/ CPAP/BIPAP, Thyroid Disorder Additional Past Medical History / Comment(s): pulmonary embolism in August 2016 & 2011, coagulopathy w/MTHFR gene, spondylolisthesis & stenosis, osteoporosis, cervical cancer, IBS, takes trileptal for fibromyalgia, varicose veins, uses CPAP History of Any Multi-Drug Resistant Organisms: None Reported Past Surgical History: Breast Surgery, Cholecystectomy, Heart Catheterization, Hysterectomy, Joint Replacement, Orthopedic Surgery Additional Past Surgical History / Comment(s): rt Rotator cuff repair, left hip replacement x 2, left shoulder replacement, right knee replacement, bilateral knee arthroscopy, right elbow surgery, multiple fatty tumors removed, zack cataracts removed, laparoscopic hiatal hernia surgery, rt hand surgery- knuckles, mass removed from rt breast Past Anesthesia/Blood Transfusion Reactions: No Reported Reaction Additional Past Anesthesia/Blood Transfusion Reaction / Comment(s): "woke up with a sore jaw" once Smoking Status: Former smoker - Past Family History Mother Family Medical History: Cancer Additional Family Medical History / Comment(s): . Medications and Allergies Home Medications Medication Instructions Recorded Confirmed Type Albuterol Sulfate [Proair Hfa] 2 puff INHALATION Q4HR PRN 06/28/15 04/04/17 History Carvedilol [Coreg] 6.25 mg PO BID 06/28/15 04/03/17 History Fexofenadine HCl [Melany Allergy] 180 mg PO DAILY 06/28/15 04/04/17 History HYDROcodone/APAP 10-325MG [[place] 1 tab PO Q6HR PRN 06/28/15 04/04/17 History 10-325] Levothyroxine Sodium [Synthroid] 50 mcg PO MOWEFR 06/28/15 04/03/17 History Levothyroxine Sodium [Synthroid] 75 mcg PO SUTUTHSA 06/28/15 04/04/17 History Montelukast [Singulair] 10 mg PO HS 06/28/15 04/04/17 History Omeprazole 20 mg PO HS PRN 06/28/15 04/04/17 History Potassium Chloride [K-Tab ER] 20 meq PO DAILY 06/28/15 04/04/17 History Pramipexole Di-HCl [Mirapex] 0.75 mg PO HS 06/28/15 04/04/17 History Sertraline HCl [Zoloft] 50 mg PO DAILY 06/28/15 04/04/17 History buPROPion XL [Wellbutrin XL] 300 mg PO DAILY 06/28/15 04/04/17 History Acetaminophen [Tylenol] 1,000 mg PO Q6HR PRN 08/24/16 04/04/17 History Aspirin [Adult Low Dose Aspirin EC] 81 mg PO HS 08/24/16 04/03/17 History Furosemide [Lasix] 40 mg PO DAILY 08/24/16 04/04/17 History OXcarbazepine [Trileptal] 150 mg PO BID 08/24/16 04/03/17 History Dicyclomine [Bentyl] 10 mg PO ACHS 12/03/16 04/04/17 History Simvastatin [Zocor] 20 mg PO HS 12/03/16 04/04/17 History Warfarin Sodium [Coumadin] 7.5 mg PO SUMOWEFR 12/03/16 04/03/17 History Warfarin [Coumadin] 5 mg PO TUTHSA 12/03/16 04/03/17 History Albuterol Nebulized [Ventolin 2.5 mg INHALATION QID PRN 01/06/17 04/04/17 History Nebulized] Umeclidinium [place] [Incruse 1 puff INHALATION QAM 01/06/17 04/04/17 History Ellipta] Allergies Allergy/AdvReac Type Severity Reaction Status Date / Time tetanus and diphtheria Allergy Severe Anaphylaxis Verified 04/03/17 10:05 toxoids [tetanus & diphtheria toxoids] Iodinated Contrast- Oral and Allergy Anaphylaxis Verified 04/03/17 10:05 IV Dye nick AdvReac Unknown ASTHMA Verified 04/03/17 10:05 ATTACK perfume AdvReac Unknown ASTHMA Verified 04/03/17 10:05 ATTACK Milk Containing Products AdvReac causes IBS Verified 04/03/17 10:05 [Dairy] symptoms mold AdvReac Itching Verified 04/03/17 10:05 pollen extracts AdvReac Itching Verified 04/03/17 10:05 Surgical - Exam Vital Signs Temp Pulse Resp BP Pulse Ox 98.3 F 56 L 16 147/76 95 04/04/17 08:24 04/04/17 08:24 04/04/17 08:24 04/04/17 08:24 04/04/17 08:24 - General well developed, no distress - Eyes PERRL - ENT normal pinna - Neck no masses - Respiratory normal expansion - Cardiovascular Rhythm: regular - Abdomen Abdomen: soft, non tender - Integumentary Right thigh has 4 large lipomas. The lipomas are placed along her anterior thigh. The nature 5-10 cm in diameter. Results - Labs Abnormal Lab Results - Last 24 Hours (Table) 04/04/17 Range/Units 08:40 INR 1.2 H (<1.2) Assessment and Plan Assessment: Right thigh lipoma. We'll perform excision.
[2017-04-04] MEDS ORDERED: BUPIVACAINE (PF) 0.25% 30 ML VIAL SQ ONE ×2 (09:48)
[2017-04-04] MEDS ORDERED: MIDAZOLAM 2 MG/2 ML VIAL ONE (09:49)
[2017-04-04] MEDS ORDERED: fentaNYL (PF) 50 MCG/ML 2 ML AMP ONE (09:49)
[2017-04-04] MEDS ORDERED: KETAMINE 10 MG/ML 20 ML VIAL ONE (09:49)
[2017-04-04] MEDS ORDERED: PROPOFOL 10 MG/ML 20 ML VIAL IV ONE (09:49)
[2017-04-04] MEDS ORDERED: SODIUM CHLORIDE 0.9% 50 ML with ceFAZolin 2,000 MG IV ONE ×2 (10:05)
[2017-04-04 11:01] VITALS: PULSE 79
[2017-04-04 11:03] VITALS: BP 175/79
--- NOTE | 2017-04-04 11:15 | P.OP ---
Date of Procedure: 04/04/17 Preoperative Diagnosis: Multiple right thigh lipomas Postoperative Diagnosis: Multiple right thigh lipoma Procedure(s) Performed: Excision of right thigh lipomas 7 Anesthesia: MAC Surgeon: Reg Anderson Estimated Blood Loss (ml): 10 Pathology: other (Right thigh lipoma) Condition: stable Disposition: PACU Description of Procedure: Patient's placed the operative table in the supine position. She received IV sedation. Her right thigh was prepped and draped usual sterile fashion. The skin was anesthetized over each lipoma. Using a 15 blade the skin was incised and then using blunt and sharp dissection with cautery each lipoma was dissected free. The Bovie hemostasis. Skin was then closed interrupted 3-0 Monocryl suture. This method was performed for every lipoma. 1. The anterior medial lipoma measured 6 x 5 cm 2. Anterior mid thigh lipoma #1 measured 3 x 2 cm 3. Anterior medial thigh #2 measured 4 x 3 cm 4. anterior medial thigh #3 measured 3 x 3 cm upper anterior 5. Upper anterior lateral lipoma measured 8 x 6 cm 6. Anterior superior lateral #2 measured 4 x 4 cm 7. Anterolateral inferior measured 5 x 4 7 m
== END 2017-04-04 11:42 | disposition home or self-care (01) ==
LOC: OR 07:48
PROVIDERS: ATTEND Surgery
DX: D17.23 Benign lipomatous neoplasm of skin and subcutaneous tissue of right leg (principal); J44.9 Chronic obstructive pulmonary disease, unspecified; M79.7 Fibromyalgia; K21.9 Gastro-esophageal reflux disease without esophagitis; E78.5 Hyperlipidemia, unspecified; I10 Essential (primary) hypertension; M19.90 Unspecified osteoarthritis, unspecified site; M06.9 Rheumatoid arthritis, unspecified; G47.33 Obstructive sleep apnea (adult) (pediatric); E07.9 Disorder of thyroid, unspecified; D68.52 Prothrombin gene mutation; M81.0 Age-related osteoporosis without current pathological fracture; K58.9 Irritable bowel syndrome, unspecified; I83.90 Asymptomatic varicose veins of unspecified lower extremity; Z99.89 Dependence on other enabling machines and devices; Z85.41 Personal history of malignant neoplasm of cervix uteri; Z86.711 Personal history of pulmonary embolism; Z79.01 Long term (current) use of anticoagulants; Z79.82 Long term (current) use of aspirin; Z79.890 Hormone replacement therapy; Z79.899 Other long term (current) drug therapy; Z88.7 Allergy status to serum and vaccine; Z91.041 Radiographic dye allergy status; Z87.891 Personal history of nicotine dependence
CPT/HCPCS: 88304; 85610; 11406; 11404; 11403; J2250; J1644; J1100; J2405; J3010; J0690; J2704

== ENCOUNTER → 2018-10-15 | Outpatient (CLI) | payer MEDICARE, OTHER ==
--- NOTE | 2018-10-19 10:00 | MM ---
Reason for exam: screening (asymptomatic). Last mammogram was performed 9 years and 2 months ago. History: Patient is postmenopausal and has history of endometrial cancer at age 42. Family history of breast cancer in paternal aunt. Benign right mammotome panel of the right breast, January 30, 2009. Benign excisional biopsy of the right breast, 1999. Took hormonal contraceptives for 20 years beginning at age 19. Took estrogen for 20 years beginning at age 42. Physical Findings: A clinical breast exam by your physician is recommended on an annual basis and results should be correlated with mammographic findings. MG 3D Screening Mammo W/Cad Bilateral CC and MLO view(s) were taken. Prior study comparison: December 02, 2013, mammogram. August 04, 2009, right breast diagnostic digital vinh. January 13, 2009, right breast mammogram dig work up. The breast tissue is heterogeneously dense. This may lower the sensitivity of mammography. Previous mammotome biopsy in the right breast. No significant changes when compared with prior studies. ASSESSMENT: Benign, BI-RAD 2 RECOMMENDATION: Routine screening mammogram of both breasts in 1 year.
== END | disposition home or self-care (01) ==
LOC: RADMAMWWP 12:45
PROVIDERS: ATTEND Family Medicine
DX: Z12.31 Encounter for screening mammogram for malignant neoplasm of breast (principal); Z80.3 Family history of malignant neoplasm of breast
CPT/HCPCS: 77063; 77067

== ENCOUNTER 2018-11-16 07:40 | Day surgery (SDC) | payer MEDICARE, OTHER ==
[2018-11-11 15:01] VITALS: BMI 34.9
[~2018-11-16 07:40] MED LIST changes: +LIDOCAINE 1% 20 ML VIAL (10MG/ML) FOR IV START INTRADERMA PRN; -MORPHINE SULFATE 4 MG/ML SYRINGE IV PRN; -ONDANSETRON 4 MG/2 ML VIAL IVP ONE; +fentaNYL (PF) 50 MCG/ML 2 ML AMP IV PRN
[2018-11-16 08:14] VITALS: TEMP 97
[2018-11-16] MEDS ORDERED: ONDANSETRON 4 MG/2 ML VIAL IVP ONE (08:20)
--- NOTE | 2018-11-16 08:45 | P.GSHP ---
History of Present Illness H&P Date: 11/16/18 Chief Complaint: Right arm lipoma This is a 73-year-old female who presents today for excision of multiple right arm lipomas. Patient has 3 lipomas on her right arm measuring 2-5 cm in size. Past Medical History Past Medical History: Asthma, Blood Disorder, Cancer, COPD, Fibromyalgia, GERD/Reflux, Hyperlipidemia, Hypertension, Musculoskeletal Disorder, Osteoarthritis (OA), Pneumonia, Pulmonary Embolus (PE), Rheumatoid Arthritis (R A), Sleep Apnea/CPAP/BIPAP, Thyroid Disorder Additional Past Medical History / Comment(s): pulmonary embolism in August 2016 & 2011, coagulopathy w/MTHFR gene, spondylolisthesis & stenosis, osteoporosis, cervical cancer, IBS, takes trileptal for fibromyalgia, varicose veins, uses CPAP History of Any Multi-Drug Resistant Organisms: None Reported Past Surgical History: Breast Surgery, Cholecystectomy, Heart Catheterization, Hernia Repair, Hysterectomy, Joint Replacement, Orthopedic Surgery Additional Past Surgical History / Comment(s): rt Rotator cuff repair, left hip replacement x 2, left shoulder replacement, right knee replacement, bilateral knee arthroscopy, right elbow surgery, multiple fatty tumors removed, zack cataracts removed, laparoscopic hiatal hernia surgery x2, rt hand surgery- knuckles, mass removed from rt breast JONATHAN BSO Past Anesthesia/Blood Transfusion Reactions: No Reported Reaction Additional Past Anesthesia/Blood Transfusion Reaction / Comment(s): "woke up with a sore jaw" once Past Psychological History: Depression Smoking Status: Former smoker Past Alcohol Use History: Rare Additional Past Alcohol Use History / Comment(s): SMOKED 1-2ppd FOR 30 YEARS , QUIT 1987. Past Drug Use History: None Reported Additional Drug Use History / Comment(s): cbd oil - Past Family History Mother Family Medical History: Cancer Additional Family Medical History / Comment(s): . Medications and Allergies Home Medications Medication Instructions Recorded Confirmed Type Albuterol Sulfate [Proair Hfa] 2 puff INHALATION Q4HR PRN 06/28/15 11/16/18 History Carvedilol [Coreg] 6.25 mg PO BID 06/28/15 11/16/18 History Fexofenadine HCl [Melany Allergy] 180 mg PO DAILY 06/28/15 11/16/18 History Levothyroxine Sodium [Synthroid] 50 mcg PO SUTUTHSA 06/28/15 11/16/18 History Levothyroxine Sodium [Synthroid] 75 mcg PO MOWEFR 06/28/15 11/16/18 History Montelukast [Singulair] 10 mg PO HS 06/28/15 11/16/18 History Omeprazole 20 mg PO HS PRN 06/28/15 11/16/18 History Potassium Chloride [K-Tab ER] 10 meq PO DAILY 06/28/15 11/16/18 History Pramipexole Di-HCl [Mirapex] 0.25 mg PO HS 06/28/15 11/16/18 History Sertraline HCl [Zoloft] 100 mg PO DAILY 06/28/15 11/16/18 History Acetaminophen [Tylenol] 1,000 mg PO Q6HR PRN 08/24/16 11/16/18 History Furosemide [Lasix] 40 mg PO DAILY 08/24/16 11/16/18 History OXcarbazepine [Trileptal] 150 mg PO BID 08/24/16 11/16/18 History Dicyclomine [Bentyl] 10 mg PO ACHS 12/03/16 11/16/18 History Simvastatin [Zocor] 20 mg PO HS 12/03/16 11/16/18 History Warfarin Sodium [Coumadin] 7.5 mg PO MOTUWETHFRSA 12/03/16 11/16/18 History Warfarin [Coumadin] 5 mg PO CHANG 12/03/16 11/16/18 History L.acidoph,Paracasei, B.lactis 1 each PO DAILY 11/11/18 11/16/18 History [Probiotic] Magnesium 400 mg PO DAILY 11/11/18 11/16/18 History Turmeric Root Extract [Turmeric] 500 mg PO DAILY 11/11/18 11/16/18 History Umeclidinium [place] [Incruse 1 puff INHALATION DAILY 11/11/18 11/16/18 History Ellipta] buPROPion HCL [Wellbutrin XL] 300 mg PO DAILY 11/11/18 11/16/18 History Acetaminophen with Codeine 1 tab PO Q6H PRN 11/16/18 11/16/18 History [Tylenol w/codeine #3] Allergies Allergy/AdvReac Type Severity Reaction Status Date / Time tetanus and diphtheria Allergy Severe Anaphylaxis Verified 11/16/18 07:53 toxoids [tetanus & diphtheria toxoids] Iodinated Contrast- Oral and Allergy Anaphylaxis Verified 11/16/18 07:53 IV Dye red dye Allergy Anaphylaxis Verified 11/16/18 07:53 nick AdvReac Unknown ASTHMA Verified 11/16/18 07:53 ATTACK perfume AdvReac Unknown ASTHMA Verified 11/16/18 07:53 ATTACK Milk Containing Products AdvReac causes IBS Verified 11/16/18 07:53 [Dairy] symptoms mold AdvReac Itching Verified 11/16/18 07:53 pollen extracts AdvReac Itching Verified 11/16/18 07:53 Surgical - Exam Vital Signs Temp Pulse Resp BP Pulse Ox 97 F L 64 16 145/65 96 11/16/18 08:13 11/16/18 08:13 11/16/18 08:13 11/16/18 08:13 11/16/18 08:13 - General well developed, well nourished, no distress - Eyes PERRL - ENT normal pinna - Neck no masses - Respiratory normal expansion - Cardiovascular Rhythm: regular - Abdomen Abdomen: soft, non tender - Musculoskeletal 3 lipomas of right forearm measuring 2-5 cm. Assessment and Plan Assessment: Right forearm lipoma. We'll perform excision.
[2018-11-16] MEDS ORDERED: fentaNYL (PF) 50 MCG/ML 2 ML AMP ONE (09:02)
[2018-11-16] MEDS ORDERED: KETAMINE 10 MG/ML 20 ML VIAL ONE (09:02)
[2018-11-16] MEDS ORDERED: PROPOFOL 10 MG/ML 20 ML VIAL IV ONE (09:02)
[2018-11-16] MEDS ORDERED: MIDAZOLAM 2 MG/2 ML VIAL ONE (09:02)
[2018-11-16] MEDS ORDERED: LIDOCAINE 1% INJ 10MG/ML (20 ML MDV) ONE (09:02)
[2018-11-16] MEDS ORDERED: BUPIVACAINE (PF) 0.5% 30 ML VIAL SQ ONE ×2 (09:17)
[2018-11-16 09:58] VITALS: BP 156/80; PULSE 63; RESP 18
--- NOTE | 2018-11-16 10:03 | P.OP ---
Date of Procedure: 11/16/18 Preoperative Diagnosis: Right arm lipoma 3 Postoperative Diagnosis: Right arm lipoma 3 Procedure(s) Performed: Excision of right arm lipoma Anesthesia: MAC Surgeon: Reg Anderson Pathology: other (Right arm lipoma 3) Condition: stable Disposition: PACU Description of Procedure: The patient's placed on the endoscopy table in the lateral position. She received IV sedation. The patient right arm was prepped and draped usual fashion. On the lateral aspect of the forearm there were 2 lipomas. The distal lipoma was anesthetized and then the skin was incised. Using blunt and sharp dissection with cautery the lipoma was excised. The lipoma measured approximately 3 cm diameter. Skin was closed interrupted 3-0 Monocryl suture. Next the proximal lipoma was anesthetized 1% local Xylocaine. Skin was incised and then using blunt and sharp dissection with cautery the lipoma was extracted and measured prostate 5 cm in diameter. The skin was closed interrupted 3-0 Monocryl suture. Next the medial lipoma was anesthetized and using a 15 blade skin was incised and using sharp and blunt dissection with cautery lipoma was dissected free and sent to pathology. The skin was closed with interrupted 3-0 Monocryl suture. The lipoma measured rocksolid 6 cm in size. The Dermabond dressings was applied. Patient top she will was sent to recovery room stable condition.
== END 2018-11-16 10:38 | disposition home or self-care (01) ==
LOC: OR 07:40
PROVIDERS: ATTEND Surgery
DX: D17.21 Benign lipomatous neoplasm of skin and subcutaneous tissue of right arm (principal); E78.5 Hyperlipidemia, unspecified; F32.9 Major depressive disorder, single episode, unspecified; I10 Essential (primary) hypertension; J44.9 Chronic obstructive pulmonary disease, unspecified; K21.9 Gastro-esophageal reflux disease without esophagitis; K58.9 Irritable bowel syndrome, unspecified; M06.9 Rheumatoid arthritis, unspecified; M79.7 Fibromyalgia; M81.0 Age-related osteoporosis without current pathological fracture; Z79.899 Other long term (current) drug therapy; Z90.49 Acquired absence of other specified parts of digestive tract; Z96.642 Presence of left artificial hip joint; Z96.651 Presence of right artificial knee joint; Z96.612 Presence of left artificial shoulder joint; Z91.041 Radiographic dye allergy status; Z91.048 Other nonmedicinal substance allergy status; G47.33 Obstructive sleep apnea (adult) (pediatric); F39 Unspecified mood [affective] disorder; Z86.711 Personal history of pulmonary embolism; Z79.01 Long term (current) use of anticoagulants; Z85.41 Personal history of malignant neoplasm of cervix uteri; Z87.891 Personal history of nicotine dependence; Z88.7 Allergy status to serum and vaccine; Z91.011 Allergy to milk products; Z88.8 Allergy status to other drugs, medicaments and biological substances
CPT/HCPCS: 88304; 11403; 11406 ×2; J2250; J1644; J2405; J2001; J3010; J2704

== ENCOUNTER → 2018-12-22 | Outpatient (CLI) | payer MEDICARE, OTHER ==
--- NOTE | 2018-12-22 15:29 | CT ---
EXAMINATION TYPE: CT abdomen pelvis w con DATE OF EXAM: 12/22/2018 COMPARISON: 11/07/2015 HISTORY: Pain CT DLP: 1452 mGycm Automated exposure control for dose reduction was used. CONTRAST: CT scan of the abdomen pelvis is performed , patient injected with 100 mL of Isovue 300. FINDINGS- LUNG BASES-there is a 2 mm nodule anterior segment right upper lobe axial image 2. Subsegmental areas of consolidation are noted. Scar or atelectasis. Small bleb in the left lower lobe is seen. Correlate for COPD. There is a trace of pericardial fluid. Heart is prominent in size. LIVER/GB-there is intrahepatic biliary dilation likely secondary to patient's postcholecystectomy sta te. Liver is slightly reduced in attenuation can be associated with hepatic steatosis. No focal hepat ic mass.. PANCREAS-diffuse atrophy of the pancreas noted. SPLEEN- No gross abnormality is seen. ADRENALS- No gross abnormality is seen. KIDNEYS/BLADDER-no hydronephrosis. Hypodensities within the right kidney too small to characterize.. BOWEL-bowel gas pattern nonspecific. Diverticulosis of colon noted.. LYMPH NODES- No greater than 1cm abdominal or pelvic lymph nodes areappreciated. OSSEOUS STRUCTURES-hypertrophic and degenerative change of the spine noted arthropathy of the right h ip and postsurgical change left.. OTHER- there is a moderate-sized hiatal hernia. Aorta of normal caliber with atherosclerotic changes . Tiny fat-containing periumbilical hernia. Within the left anterior lower abdominal soft tissues the re appears to be a fat attenuation measuring approximately 3.8 cm compatible with a intramuscular lip nelida. This is similar in appearance to the prior exam. Within the right abdomen there is a soft tissue calcification in the mesentery posteriorly. IMPRESSION- 1. Diverticulosis of the colon with no diagnostic evidence of diverticulitis. 2. There is an intramuscular soft tissue lipoma stable from the prior exam within the lower left ante rior abdomen soft tissues. 3. The is a 2 mm right upper lobe pulmonary nodule too small to characterize image 4. Postcholecystectomy with mild to moderate intrahepatic ductal dilation postsurgical. 5. Pancreatic diffuse atrophy. 6. small to moderate-sized hiatal hernia.
== END | disposition home or self-care (01) ==
LOC: RADCTMAIN 12:41
PROVIDERS: ATTEND Family Medicine
DX: K57.30 Diverticulosis of large intestine without perforation or abscess without bleeding (principal); D17.9 Benign lipomatous neoplasm, unspecified; K44.9 Diaphragmatic hernia without obstruction or gangrene; Z90.49 Acquired absence of other specified parts of digestive tract; Z98.890 Other specified postprocedural states
CPT/HCPCS: 82565; 84520; 74177; 36415; Q9967 ×2

== ENCOUNTER → 2019-02-02 | Outpatient (CLI) | payer MEDICARE, OTHER ==
--- NOTE | 2019-02-02 13:09 | US ---
EXAMINATION TYPE: US venous doppler duplex LE LT DATE OF EXAM: 02/02/2019 1:00 PM COMPARISON: NONE CLINICAL HISTORY: M79.662 pain in left leg. left leg pain, h/o PE's, on Coumadin SIDE PERFORMED: Left TECHNIQUE: The lower extremity deep venous system is examined utilizing real time linear array sonog enoch with graded compression, doppler sonography and color-flow sonography. VESSELS IMAGED: External Iliac Vein (EIV) Common Femoral Vein Deep Femoral Vein Greater Saphenous Vein * Femoral Vein Popliteal Vein Small Saphenous Vein * Proximal Calf Veins (* superficial vessels) Left Leg: Appears negative for dvt IMPRESSION: 1. No diagnostic evidence of DVT as visualized.
== END | disposition home or self-care (01) ==
LOC: RADUSWWP 12:42
PROVIDERS: ATTEND Family Medicine
DX: M79.662 Pain in left lower leg (principal)

== ENCOUNTER 2019-03-07 14:11 | Emergency (ER) | payer MEDICARE, OTHER ==
[2019-03-07 14:33] VITALS: BP 145/78; PULSE 64; RESP 18; TEMP 98.5
--- NOTE | 2019-03-07 15:37 | ED ---
Fall HPI - General Chief Complaint: Fall Stated Complaint: Fall Time Seen by Provider: 03/07/19 14:43 Source: patient, RN notes reviewed Mode of arrival: ambulatory Limitations: no limitations - History of Present Illness Initial Comments: 73-year-old female presents emergency Department chief complaint of left-sided rib pain. Patient states that she was walking down a ramp states that she tripped over a ledge falling onto her left side. She states she felt a pop in her rib when she fell. She denies any head injury no loss conscious she states she has pain when she twists and bends her moves and takes deep breath. She does not feel short of breath at rest denies any back pain no head injury no loss conscious. Patient went to neck pain or any major upper or lower extremity discomfort. - Related Data Home Medications Medication Instructions Recorded Confirmed Albuterol Sulfate [Proair Hfa] 2 puff INHALATION Q4HR PRN 06/28/15 11/16/18 Carvedilol [Coreg] 6.25 mg PO BID 06/28/15 11/16/18 Fexofenadine HCl [Melany Allergy] 180 mg PO DAILY 06/28/15 11/16/18 Levothyroxine Sodium [Synthroid] 50 mcg PO SUTUTHSA 06/28/15 11/16/18 Levothyroxine Sodium [Synthroid] 75 mcg PO MOWEFR 06/28/15 11/16/18 Montelukast [Singulair] 10 mg PO HS 06/28/15 11/16/18 Omeprazole 20 mg PO HS PRN 06/28/15 11/16/18 Potassium Chloride [K-Tab ER] 10 meq PO DAILY 06/28/15 11/16/18 Pramipexole Di-HCl [Mirapex] 0.25 mg PO HS 06/28/15 11/16/18 Sertraline HCl [Zoloft] 100 mg PO DAILY 06/28/15 11/16/18 Acetaminophen [Tylenol] 1,000 mg PO Q6HR PRN 08/24/16 11/16/18 Furosemide [Lasix] 40 mg PO DAILY 08/24/16 11/16/18 OXcarbazepine [Trileptal] 150 mg PO BID 08/24/16 11/16/18 Dicyclomine [Bentyl] 10 mg PO ACHS 12/03/16 11/16/18 Simvastatin [Zocor] 20 mg PO HS 12/03/16 11/16/18 Warfarin Sodium [Coumadin] 7.5 mg PO MOTUWETHFRSA 12/03/16 11/16/18 Warfarin [Coumadin] 5 mg PO CHANG 12/03/16 11/16/18 L.acidoph,Paracasei, B.lactis 1 each PO DAILY 11/11/18 11/16/18 [Probiotic] Magnesium 400 mg PO DAILY 11/11/18 11/16/18 Turmeric Root Extract [Turmeric] 500 mg PO DAILY 11/11/18 11/16/18 Umeclidinium [place] [Incruse 1 puff INHALATION DAILY 11/11/18 11/16/18 Ellipta] buPROPion HCL [Wellbutrin XL] 300 mg PO DAILY 11/11/18 11/16/18 Acetaminophen with Codeine 1 tab PO Q6H PRN 11/16/18 11/16/18 [Tylenol w/codeine #3] Allergies Allergy/AdvReac Type Severity Reaction Status Date / Time tetanus and diphtheria Allergy Severe Anaphylaxis Verified 03/07/19 14:33 toxoids [tetanus & diphtheria toxoids] Iodinated Contrast Media Allergy Anaphylaxis Verified 03/07/19 14:33 [Iodinated Contrast- Oral and IV Dye] red dye Allergy Anaphylaxis Verified 03/07/19 14:33 nick AdvReac Unknown ASTHMA Verified 03/07/19 14:33 ATTACK perfume AdvReac Unknown ASTHMA Verified 03/07/19 14:33 ATTACK Milk Containing Products AdvReac causes IBS Verified 03/07/19 14:33 [Dairy] symptoms mold AdvReac Itching Verified 03/07/19 14:33 pollen extracts AdvReac Itching Verified 03/07/19 14:33 Review of Systems ROS Statement: Those systems with pertinent positive or pertinent negative responses have been documented in the HPI. ROS Other: All systems not noted in ROS Statement are negative. Past Medical History Past Medical History: Asthma, Blood Disorder, Cancer, COPD, Fibromyalgia, GERD/R eflux, Hyperlipidemia, Hypertension, Musculoskeletal Disorder, Osteoarthritis (OA), Pneumonia, Pulmonary Embolus (PE), Rheumatoid Arthritis (RA), Sleep Apnea/CPAP/BIPAP, Thyroid Disorder Additional Past Medical History / Comment(s): pulmonary embolism in August 2016 & 2012, coagulopathy w/MTHFR gene, spondylolisthesis & stenosis, osteoporosis, cervical cancer, IBS, takes trileptal for fibromyalgia, varicose veins, uses CPAP History of Any Multi-Drug Resistant Organisms: None Reported Past Surgical History: Breast Surgery, Cholecystectomy, Heart Catheterization, Hernia Repair, Hysterectomy, Joint Replacement, Orthopedic Surgery Additional Past Surgical History / Comment(s): rt Rotator cuff repair, left hip replacement x 2, left shoulder replacement, right knee replacement, bilateral knee arthroscopy, right elbow surgery, multiple fatty tumors removed, zack cataracts removed, laparoscopic hiatal hernia surgery x2, rt hand surgery- knuckles, mass removed from rt breast JONATHAN BSO Past Anesthesia/Blood Transfusion Reactions: No Reported Reaction Additional Past Anesthesia/Blood Transfusion Reaction / Comment(s): "woke up with a sore jaw" once Past Psychological History: Depression Smoking Status: Former smoker Past Alcohol Use History: Rare Past Drug Use History: None Reported - Past Family History Mother Family Medical History: Cancer Additional Family Medical History / Comment(s): . General Exam Limitations: no limitations General appearance: alert, in no apparent distress Head exam: Present: atraumatic, normocephalic, normal inspection Eye exam: Present: normal appearance, PERRL, EOMI. Absent: scleral icterus, conjunctival injection, periorbital swelling Neck exam: Present: normal inspection, full ROM. Absent: tenderness, meningismus, lymphadenopathy Respiratory exam: Present: normal lung sounds bilaterally, chest wall tenderness (Left anterior rib tenderness). Absent: respiratory distress, wheezes, rales, rhonchi, stridor Cardiovascular Exam: Present: regular rate, normal rhythm, normal heart sounds. Absent: systolic murmur, diastolic murmur, rubs, gallop, clicks GI/Abdominal exam: Present: soft, normal bowel sounds. Absent: distended, tenderness, guarding, rebound, rigid Extremities exam: Present: other (Slightly decreased range of motion left shoulder though this is chronic in nature from prior surgery. Vascular intact) Back exam: Present: full ROM. Absent: tenderness, paraspinal tenderness, vertebral tenderness Neurological exam: Present: alert, oriented X3, CN II-XII intact, reflexes normal. Absent: motor sensory deficit Course Vital Signs 03/07/19 14:29 Temperature 98.5 F Pulse Rate 64 Respiratory 18 Rate Blood Pressure 145/78 O2 Sat by Pulse 98 Oximetry Medical Decision Making - Medical Decision Making X-rays negative for acute findings. No pneumothorax or obvious rib fracture. Patient be discharged in stable condition return parameters discussed. Disposition Clinical Impression: Fall, Contusion of rib on left side Disposition: HOME SELF-CARE Condition: Stable Instructions (If sedation given, give patient instructions): Rib Contusion (ED) Additional Instructions: Please return to the Emergency Department if symptoms worsen or any other concerns. Is patient prescribed a controlled substance at d/c from ED?: No Referrals: Obdulio Grimaldo MD [Primary Care Provider] - 1-2 days Time of Disposition: 15:52
--- NOTE | 2019-03-07 15:50 | XR ---
EXAMINATION TYPE: XR chest 2V DATE OF EXAM: 03/07/2019 COMPARISON: 10/02/2016 HISTORY: Fall. Rib pain TECHNIQUE: 2 views FINDINGS: There is some minimal linear density left lung base. There is no heart failure. There is le ft shoulder prosthesis. There is right shoulder surgery. Thoracic aorta is atheromatous. Heart size i s normal. IMPRESSION: Mild scarring or subsegmental atelectasis at the left lung base unchanged. Normal heart.
== END 2019-03-07 15:57 | disposition home or self-care (01) ==
LOC: EC 14:11
DX: S20.212A Contusion of left front wall of thorax, initial encounter (principal); J44.9 Chronic obstructive pulmonary disease, unspecified; M79.7 Fibromyalgia; K21.9 Gastro-esophageal reflux disease without esophagitis; E78.5 Hyperlipidemia, unspecified; I10 Essential (primary) hypertension; M19.90 Unspecified osteoarthritis, unspecified site; Z86.711 Personal history of pulmonary embolism; M06.9 Rheumatoid arthritis, unspecified; G47.30 Sleep apnea, unspecified; E07.9 Disorder of thyroid, unspecified; K58.9 Irritable bowel syndrome, unspecified; F32.9 Major depressive disorder, single episode, unspecified; Z87.891 Personal history of nicotine dependence; Z88.7 Allergy status to serum and vaccine; Z91.011 Allergy to milk products; Z91.041 Radiographic dye allergy status; Z91.048 Other nonmedicinal substance allergy status; Z79.01 Long term (current) use of anticoagulants; Z79.890 Hormone replacement therapy; Z79.899 Other long term (current) drug therapy; Z85.41 Personal history of malignant neoplasm of cervix uteri; Z87.01 Personal history of pneumonia (recurrent); Z90.710 Acquired absence of both cervix and uterus; Z96.642 Presence of left artificial hip joint; Z96.612 Presence of left artificial shoulder joint; Z96.651 Presence of right artificial knee joint; Z95.818 Presence of other cardiac implants and grafts; Z99.89 Dependence on other enabling machines and devices; W10.2XXA Fall (on)(from) incline, initial encounter; Y93.01 Activity, walking, marching and hiking
CPT/HCPCS: 71046; 99283

== ENCOUNTER → 2019-05-10 | Day surgery (SDC) | payer MEDICARE, OTHER ==
[2019-05-06 11:52] VITALS: BMI 35.4
[~2019-05-10] MED LIST changes: -DEXAMETHASONE SOD PHOSPHATE 10 MG/ML 1 ML VIAL IV ONE; -HEPARIN SODIUM,PORCINE 5,000 UNIT/ML 1 ML VIAL SQ ONE; +LIDOCAINE 1% (10MG/ML) FOR IV START INTRADERMA PRN; -LIDOCAINE 1% 20 ML VIAL (10MG/ML) FOR IV START INTRADERMA PRN; +LIDOCAINE 1% INJ 10MG/ML (20 ML MDV) ONE; -MIDAZOLAM 2 MG/2 ML VIAL IV PRN; +PROPOFOL 10 MG/ML 20 ML VIAL IV ONE; -Pre Op ABX Message 1 EACH MISC MISCELLANE ONE; -fentaNYL (PF) 50 MCG/ML 2 ML AMP IV PRN
[2019-05-10 07:37] VITALS: RESP 16; TEMP 98.5
--- NOTE | 2019-05-10 08:29 | P.GSHP ---
History of Present Illness H&P Date: 05/10/19 Chief Complaint: GERD This is a 73-year-old female who presents today for EGD. She has history of recurrent hiatal hernia. She's had some GERD and dysphagia. Past Medical History Past Medical History: Asthma, Blood Disorder, Cancer, COPD, Fibromyalgia, GERD/Reflux, Hyperlipidemia, Hypertension, Musculoskeletal Disorder, Osteoarthritis (OA), Pneumonia, Pulmonary Embolus (PE), Rheumatoid Arthritis (RA), Sleep Apnea/CPAP/BIPAP, Thyroid Disorder Additional Past Medical History / Comment(s): pulmonary embolism in August 2016 & 2011, coagulopathy w/MTHFR gene, spondylolisthesis & stenosis, osteoporosis, cervical cancer, IBS, takes trileptal for fibromyalgia, varicose veins, uses CPAP, hx falls R/T vertigo. History of Any Multi-Drug Resistant Organisms: None Reported Past Surgical History: Breast Surgery, Cholecystectomy, Heart Catheterization, Hernia Repair, Hysterectomy, Joint Replacement, Orthopedic Surgery Additional Past Surgical History / Comment(s): rt Rotator cuff repair, lt hip replacement x 2, lt shoulder replacement, bilat knee replacement, bilat knee arthroscopy, rt elbow surgery, multiple fatty tumors removed, zack cataracts removed, laparoscopic hiatal hernia surgery x2 - last 2016, rt hand surgery- knuckles, mass exc from rt breast, JONATHAN BSO, EGD, colonoscopy, Lipoma exc Past Anesthesia/Blood Transfusion Reactions: No Reported Reaction Additional Past Anesthesia/Blood Transfusion Reaction / Comment(s): "woke up with a sore jaw, bruising of face" once Smoking Status: Former smoker - Past Family History Mother Family Medical History: Cancer Additional Family Medical History / Comment(s): . Medications and Allergies Home Medications Medication Instructions Recorded Confirmed Type Albuterol Sulfate [Proair Hfa] 2 puff INHALATION Q4HR PRN 06/28/15 05/10/19 History Carvedilol [Coreg] 6.25 mg PO BID 06/28/15 05/10/19 History Fexofenadine HCl [Melany Allergy] 180 mg PO QAM 06/28/15 05/10/19 History Levothyroxine Sodium [Synthroid] 50 mcg PO SUTUTHSA 06/28/15 05/10/19 History Levothyroxine Sodium [Synthroid] 75 mcg PO MOWEFR 06/28/15 05/10/19 History Montelukast [Singulair] 10 mg PO HS 06/28/15 05/10/19 History Omeprazole 20 mg PO PC-SUPPER 06/28/15 05/10/19 History Potassium Chloride [K-Tab ER] 10 meq PO Q48H 06/28/15 05/10/19 History Pramipexole Di-HCl [Mirapex] 0.75 mg PO HS 06/28/15 05/10/19 History Sertraline HCl [Zoloft] 100 mg PO DAILY 06/28/15 05/10/19 History Acetaminophen [Tylenol] 1,000 mg PO Q6HR PRN 08/24/16 05/10/19 History Furosemide [Lasix] 20 mg PO DAILY 08/24/16 05/10/19 History OXcarbazepine [Trileptal] 150 mg PO BID 08/24/16 05/10/19 History Dicyclomine [Bentyl] 10 mg PO ACHS 12/03/16 05/10/19 History Simvastatin [Zocor] 20 mg PO HS 12/03/16 05/10/19 History Warfarin Sodium [Coumadin] 7.5 mg PO SUMOWETHSA 12/03/16 05/10/19 History Warfarin [Coumadin] 5 mg PO TUFR 12/03/16 05/10/19 History L.acidoph,Paracasei, B.lactis 1 each PO DAILY 11/11/18 05/10/19 History [Probiotic] Magnesium 400 mg PO DAILY 11/11/18 05/10/19 History Turmeric Root Extract [Turmeric] 500 mg PO DAILY 11/11/18 05/10/19 History Umeclidinium [place] [Incruse 1 puff INHALATION DAILY 11/11/18 05/10/19 History Ellipta] buPROPion HCL [Wellbutrin XL] 300 mg PO DAILY 11/11/18 05/10/19 History Acetaminophen with Codeine 1 tab PO Q6H PRN 11/16/18 05/10/19 History [Tylenol w/codeine #3] Meclizine [Antivert] 12.5 mg PO Q8H 05/06/19 05/10/19 History Allergies Allergy/AdvReac Type Severity Reaction Status Date / Time tetanus and diphtheria Allergy Severe Anaphylaxis Verified 05/10/19 07:39 toxoids [tetanus & diphtheria toxoids] gluten Allergy Diarrhea Verified 05/10/19 07:39 Iodinated Contrast Media Allergy Anaphylaxis Verified 05/10/19 07:39 [Iodinated Contrast- Oral and IV Dye] red dye Allergy Anaphylaxis Verified 05/10/19 07:39 nick AdvReac Unknown ASTHMA Verified 05/10/19 07:39 ATTACK perfume AdvReac Unknown ASTHMA Verified 05/10/19 07:39 ATTACK Milk Containing Products AdvReac causes IBS Verified 05/10/19 07:39 [Dairy] symptoms mold AdvReac Itching Verified 05/10/19 07:39 pollen extracts AdvReac Itching Verified 05/10/19 07:39 Surgical - Exam Vital Signs Temp Pulse Resp BP Pulse Ox 98.5 F 50 L 16 153/67 95 05/10/19 07:32 05/10/19 07:32 05/10/19 07:32 05/10/19 07:32 05/10/19 07:32 - General well developed, well nourished - Eyes PERRL - ENT normal pinna - Neck no masses - Respiratory normal expansion - Cardiovascular Rhythm: regular - Abdomen Abdomen: soft, non tender Assessment and Plan Assessment: GERD, dysphagia. We'll perform EGD.
--- NOTE | 2019-05-10 08:41 | P.OP ---
Date of Procedure: 05/10/19 Preoperative Diagnosis: GERD Postoperative Diagnosis: Small hiatal hernia Mild esophagitis Procedure(s) Performed: EGD Anesthesia: MAC Surgeon: Reg Anderson Pathology: other (Antrum, esophagus) Condition: stable Disposition: PACU Description of Procedure: The patient's placed on the endoscopy table in the lateral position. Received IV sedation. The gastroscope placed oropharynx passed in the esophagus into the stomach. Scope was then placed through the pylorus. Scope was then brought back the antrum and mildly inflamed. A biopsies was performed. The scope was unretroflexed and remainder of the stomach appeared normal. There was a small recurrent hiatal hernia. The GE junction was at 38 cm the distal esophagus. Inflamed a biopsies performed. The proximal esophagus. Normal. Scope was withdrawn for patient.
[2019-05-10 08:46] VITALS: PULSE 72
[2019-05-10 09:19] VITALS: BP 172/66
== END | disposition home or self-care (01) ==
LOC: ORWHC2ENDO 06:57
PROVIDERS: ATTEND Surgery
DX: K29.50 Unspecified chronic gastritis without bleeding (principal); K21.0 Gastro-esophageal reflux disease with esophagitis; K44.9 Diaphragmatic hernia without obstruction or gangrene; I10 Essential (primary) hypertension; E78.5 Hyperlipidemia, unspecified; J44.9 Chronic obstructive pulmonary disease, unspecified; M79.7 Fibromyalgia; K58.9 Irritable bowel syndrome, unspecified; F32.9 Major depressive disorder, single episode, unspecified; E07.9 Disorder of thyroid, unspecified; M19.90 Unspecified osteoarthritis, unspecified site; G47.30 Sleep apnea, unspecified; M81.0 Age-related osteoporosis without current pathological fracture; I83.90 Asymptomatic varicose veins of unspecified lower extremity; M06.9 Rheumatoid arthritis, unspecified; Z86.711 Personal history of pulmonary embolism; Z90.710 Acquired absence of both cervix and uterus; Z87.01 Personal history of pneumonia (recurrent); Z96.653 Presence of artificial knee joint, bilateral; Z96.642 Presence of left artificial hip joint; Z96.612 Presence of left artificial shoulder joint; Z90.49 Acquired absence of other specified parts of digestive tract; Z79.02 Long term (current) use of antithrombotics/antiplatelets; Z79.890 Hormone replacement therapy; Z79.01 Long term (current) use of anticoagulants; Z79.899 Other long term (current) drug therapy; Z85.41 Personal history of malignant neoplasm of cervix uteri; Z98.41 Cataract extraction status, right eye; Z98.42 Cataract extraction status, left eye; Z87.891 Personal history of nicotine dependence; Z80.9 Family history of malignant neoplasm, unspecified; Z88.7 Allergy status to serum and vaccine; Z91.041 Radiographic dye allergy status; Z91.011 Allergy to milk products; Z91.048 Other nonmedicinal substance allergy status; Z91.018 Allergy to other foods
CPT/HCPCS: 88305; 43239; J2001; J2704

== ENCOUNTER 2019-05-17 15:33 | Observation (INO) | payer MEDICARE, OTHER ==
[2019-05-17] MEDS ORDERED: ALBUTEROL NEBULIZED 2.5 MG/3 ML INHALATION PRN (18:38)
[2019-05-17] MEDS ORDERED: Acetaminophen-Codeine 300-30mg TAB PO PRN (18:38)
--- NOTE | 2019-05-17 18:48 | CT ---
EXAMINATION TYPE: CT brain wo con DATE OF EXAM: 05/17/2019 HISTORY: Dizziness. CT DLP: 1099.4 mGycm. Automated Exposure Control for Dose Reduction was Utilized. TECHNIQUE: CT scan of the head is performed without contrast. COMPARISON: CT brain July 08, 2010.. FINDINGS: There is no acute intracranial hemorrhage or midline shift identified. There is diffuse v entricular and sulcal prominence consistent with diffuse cerebral atrophy greatest over the bilateral frontal lobes redemonstrated. Haines-white matter differentiation is fairly well preserved. No suspici ous opacification mastoid air cells bilaterally. Scleral calcification right globe. Visualized sinu ses are clear. IMPRESSION: No acute intracranial hemorrhage or midline shift. There is mild to moderate diffuse ce rebral atrophy greatest over bilateral frontal lobes redemonstrated. No significant change from [address] CT.
[2019-05-17 18:58] LABS: Basophils % (A) 0 %; Eosinophils # (A) 0.1 k/uL (0-0.7); Eosinophils % (A) 3 %; HCT 40.8 % (34.0-46.0); HGB 13.1 gm/dL (11.4-16.0); Lymphocytes # (A) 0.9 k/uL (1.0-4.8); Lymphocytes % (A) 20 %; MCH 28.7 pg (25.0-35.0); MCHC 32.1 g/dL (31.0-37.0); MCV 89.1 fL (80.0-100.0); Mean Platelet Volume 7.7; Monocytes # (A) 0.3 k/uL (0-1.0); Monocytes % (A) 6 %; Neutrophils # (A) 3.1 k/uL (1.3-7.7); Neutrophils % (A) 68 %; Platelet Count 244 k/uL (150-450); RBC 4.57 m/uL (3.80-5.40); RDW 14.1 % (11.5-15.5); WBC 4.6 k/uL (3.8-10.6)
[2019-05-17] MEDS ORDERED: WARFARIN 7.5 MG TAB PO SCH (19:00)
[2019-05-17 19:03] LABS: Albumin 4.2 g/dL (3.5-5.0); Calcium 9.2 mg/dL (8.4-10.2); Potassium 4.3 mmol/L (3.5-5.1); Total Bilirubin 0.3 mg/dL (0.2-1.3); Total Protein 6.8 g/dL (6.3-8.2)
[2019-05-17 19:06] LABS: D-Dimer 0.41 mg/L FEU (<0.60)
[2019-05-17 19:13] LABS: Prothrombin Time 19.8 sec (9.0-12.0)
--- NOTE | 2019-05-17 19:19 | XR ---
EXAMINATION TYPE: XR chest 2V DATE OF EXAM: 05/17/2019 COMPARISON: Chest x-ray March 07, 2019. HISTORY: Dyspnea. TECHNIQUE: Frontal and lateral views of the chest are obtained. FINDINGS: There is chronic parenchymal change with left basilar linear scarring and/or atelectasis w ithout suspicious new focal air space opacity, pleural effusion, or pneumothorax seen. The cardiac s ilhouette size remains within normal limits with atherosclerotic change aortic knob. The osseous st ructures are demineralized. Metallic anchor right humeral head level. Partial visualization of surgic al change left humeral head level. Advanced degenerative change right glenohumeral joint. Cholecystec mercedes clips are seen. IMPRESSION: Chronic changes without acute pulmonary process. No significant change from prior.
--- NOTE | 2019-05-17 19:20 | US ---
EXAMINATION TYPE: US carotid duplex BILAT DATE OF EXAM: 05/17/2019 COMPARISON: Carotid ultrasound 2010 CLINICAL HISTORY: syncope. syncope EXAM MEASUREMENTS: RIGHT: Peak Systolic Velocity (PSV) cm/sec ----- Right CCA: 64.3 ----- Right ICA: 113 ----- Right ECA: 86.4 ICA/CCA ratio: 1.76 RIGHT: End Diastole cm/sec ----- Right CCA: 13.6 ----- Right ICA: 28.6 ----- Right ECA: 6.5 LEFT: Peak Systolic Velocity (PSV) cm/sec ----- Left CCA: 92.2 ----- Left ICA: 104 ----- Left ECA: 79.3 ICA/CCA ratio: 1.13 LEFT: End Diastole cm/sec ----- Left CCA: 13.6 ----- Left ICA: 31.2 ----- Left ECA: 0.0 VERTEBRALS (direction of flow): Right Vertebral: Antegrade Left Vertebral: Antegrade Rhythm: Normal Haines scale images identified mild scattered peripheral plaque at bilateral carotid bulb level more pr ominent than prior studies. Velocity measurements and ratios in the visualized portion of both healthcare administration internship al carotid arteries is within normal limits. IMPRESSION: Mild plaque bilaterally without hemodynamically significant stenosis seen in either inte rnal carotid artery. Criteria for Assigning % of Stenosis / Diameter reduction (Estimation based on the indirect measurements of the internal carotid artery velocities (ICA PSV). 1. Normal (no stenosis)=ICA PSV < 125 cm/s: ratio < 2.0: ICA EDV<40 cm/s. 2. Less than 50% stenosis=ICA PSV < 125 cm/s: ratio < 2.0: ICA EDV<40 cm/s. 3. 50 to 69% stenosis=ICA PSV of 125 to 230 cm/s: ration 2.0 ? 4.0: ICA EDV 40-100 cm/s. 4. Greater than 70% stenosis to near occlusion= ICA PSV > 230 cm/s: ratio > 4.0: ICA EDV > 100 cm/s. 5. Near occlusion= ICA PSV velocities may be low or undetectable: variable ratio and ICA EDV. 6. Total occlusion=unable to detect flow.
[2019-05-17] MEDS: SODIUM CHLORIDE 0.9% 1,000 ML IV SCH (20:21)
[2019-05-17] MEDS: MECLIZINE 12.5 MG TAB PO SCH (20:22)
[2019-05-17] MEDS: DICYCLOMINE 10 MG CAP PO SCH (20:22)
[2019-05-17] MEDS: MONTELUKAST 10 MG TAB PO SCH (20:22)
[2019-05-17] MEDS: PRAMIPEXOLE 0.25 MG TAB PO SCH (20:22)
[2019-05-17] MEDS: PANTOPRAZOLE 40 MG TABLET PO SCH (20:22)
[2019-05-17] MEDS: ATORVASTATIN 10 MG TAB PO SCH (20:22)
[2019-05-17] MEDS: CARVEDILOL 6.25 MG TAB PO SCH (20:22)
[2019-05-17] MEDS: OXcarbazepine 150 MG TAB PO SCH (20:23)
[2019-05-17] MEDS: ACETAMINOPHEN TAB 500 MG TAB PO PRN (20:23)
[2019-05-18 05:47] LABS: Basophils % (A) 0 %; Eosinophils # (A) 0.1 k/uL (0-0.7); Eosinophils % (A) 4 %; HCT 36.1 % (34.0-46.0); HGB 11.8 gm/dL (11.4-16.0); Lymphocytes # (A) 1.1 k/uL (1.0-4.8); Lymphocytes % (A) 32 %; MCH 28.8 pg (25.0-35.0); MCHC 32.7 g/dL (31.0-37.0); MCV 88.1 fL (80.0-100.0); Mean Platelet Volume 7.5; Monocytes # (A) 0.3 k/uL (0-1.0); Monocytes % (A) 7 %; Neutrophils # (A) 1.9 k/uL (1.3-7.7); Neutrophils % (A) 54 %; Platelet Count 178 k/uL (150-450); WBC 3.6 k/uL (3.8-10.6)
[2019-05-18 06:00] LABS: Albumin 3.2 g/dL (3.5-5.0); Calcium 8.5 mg/dL (8.4-10.2); Potassium 3.9 mmol/L (3.5-5.1); Total Bilirubin 0.2 mg/dL (0.2-1.3); Total Protein 5.5 g/dL (6.3-8.2)
[2019-05-18] MEDS ORDERED: LEVOTHYROXINE 50 MCG TAB PO SCH (06:30)
[2019-05-18] MEDS: DICYCLOMINE 10 MG CAP PO SCH ×4 (06:53→20:51)
[2019-05-18] MEDS: CARVEDILOL 6.25 MG TAB PO SCH ×2 (06:53→18:09)
[2019-05-18] MEDS: MECLIZINE 12.5 MG TAB PO SCH ×3 (06:53→20:51)
[2019-05-18] MEDS: IPRATROPIUM 0.5 MG/2.5 ML NEBU INHALATION SCH ×5 (07:54→19:57)
[2019-05-18] MEDS: MAGNESIUM OXIDE 400 MG TAB PO SCH (08:47)
[2019-05-18] MEDS: OXcarbazepine 150 MG TAB PO SCH ×2 (08:47→22:05)
[2019-05-18] MEDS: buPROPion XL 300 MG TAB.ER.24H PO SCH (08:47)
[2019-05-18] MEDS: SERTRALINE 100 MG TAB PO SCH (08:47)
[2019-05-18] MEDS: LORATADINE 10 MG TAB PO SCH (08:47)
[2019-05-18] MEDS: FUROSEMIDE 20 MG TAB PO SCH (08:47)
[2019-05-18] MEDS ORDERED: POTASSIUM CHLORIDE ER 10 MEQ TAB.ER.PRT PO SCH (09:00)
--- NOTE | 2019-05-18 11:09 | CONS ---
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 She has history of hypothyroidism, dyslipidemia who presented to her primary care physician's office yesterday having had an episode of syncope. The patient states that she has had dizziness for a long time and has had recurrent falls as a result of it and takes Antivert for the same. Yesterday she suddenly had a syncopal event initially felt diaphoretic, on well and passed out. She did not have any focal neurological deficits. At the time of my evaluation, she is comfortable at rest, hemodynamically stable and did not have any further episodes of syncope since admission. PAST MEDICAL HISTORY: Her past medical history is significant for atrial fibrillation, pulmonary embolism, dyslipidemia, depression, hypothyroidism, hypertension, irritable bowel syndrome, and Bella fundoplication and asthma, COPD. MEDICATIONS: Current medications include Coumadin, Zocor, Zoloft, Mirapex, omeprazole, Trileptal, Singulair, Synthroid [place], Lasix, Advair, Melany, Bentyl, Coreg, aspirin, and ProAir. REVIEW OF SYSTEMS: HEENT is as described above. CARDIAC: As described above. RESPIRATORY: Negative. GI: Significant for Bella fundoplication. PSYCHOSOCIAL: Significant for depression. Rest of the system review is unremarkable. PHYSICAL EXAMINATION: On exam, patient is comfortable at rest. Vital signs are stable. There is no jugular venous distention. Carotid upstroke is diminished. There is no bruit. Chest exam reveals good air entry bilaterally. Heart exam reveals first and second heart sounds with systolic murmur at the apex. Abdomen is soft. Exam of extremities did not reveal any edema. Peripheral pulses are felt. LABS: Labs show a hemoglobin of 11.8, platelet count is 178, potassium is 3.9 creatinine is 1. ASSESSMENT: 1. Syncope probably vasovagal in origin. 2. History of atrial fibrillation. 3. History of depression. PLAN: Patient is adequately anticoagulated with an INR of 2. Her hemoglobin was 13.1 on presentation. She does not have any evidence of active GI bleed. I do not have any EKGs on her, will obtain one. Carotid duplex study showed only mild carotid stenosis. A CT scan of the brain was negative. Echo is pending. Plan if the echo is normal and patient does not have documented tachy or bradyarrhythmias, we should be able to discharge home and get an outpatient stress test done through my office. MMODL / IJN: [id number] /
--- NOTE | 2019-05-18 15:49 | HP ---
HISTORY AND PHYSICAL This patient is a 73-year-old white female who came into the hospital with near-syncope at home in the shower with diaphoresis and some chest tightness. She came to the hospital for a possible vasovagal event versus cardiac arrhythmia. She said she has never had an episode like this before, where she nearly passed out. She did not really have any racing or sensation of any spinning, but she was dizzy and near-syncopal with chest tightness. PAST MEDICAL HISTORY: Atrial fibrillation, pulmonary embolism, depression, hypothyroidism, hypertension, asthma, dyslipidemia. MEDICINES: Coumadin, Zocor, Zoloft, Mirapex, omeprazole, Trileptal, Singulair, Synthroid, Lasix, Bentyl, Coreg, Melany, ProAir. REVIEW OF SYSTEMS: Fourteen-point review of systems as mentioned above; otherwise negative. PHYSICAL EXAMINATION: Vital signs stable. CARDIOVASCULAR: S1, S2. LUNGS: Scattered rhonchi and wheeze. ABDOMEN: Soft. EXTREMITIES: No edema. Peripheral pulses are felt. Negative orthostatic changes. ASSESSMENT: 1. Syncope, possibly vasovagal. 2. History of atrial fibrillation. 3. Depression. 4. Pulmonary embolism history. Carotid, CT of the brain, neuro and cardiac referral to rule out arrhythmia on monitor. Possible discharge home if better if cleared by Cardiology and Neuro. MMODL / IJN: [id number] /
--- NOTE | 2019-05-18 17:25 | EEG ---
ELECTROENCEPHALOGRAM REPORT DATE OF SERVICE: 05/18/2019 This is a 73-year-old female admitted for syncope. EEG FINDINGS: A routine 21-channel awake digital EEG recording was accomplished utilizing the 10/20 international system with bipolar and referential montages. Background consists of well developed, well regulated, moderate-voltage activity in 8-9 Hz alpha. Background is posterior-dominant and seems to be reactive to eye opening and closing. Photic driving response was not clearly seen. Mild drowsiness was seen with appearance of bilaterally symmetric theta frequency rhythm, but deeper stages of sleep were not seen. The EEG was technically limited due to very frequent myogenic and movement artifacts. No definitive focal or generalized epileptiform activity was seen. EKG rhythm leads revealed no obvious arrhythmia. IMPRESSION: This is a technically limited EEG due to frequent movement and myogenic artifacts. Otherwise, the study was normal, with no epileptiform activity seen. If your suspicion for seizures is high, consider prolonged or a sleep deprived EEG. MMODL / IJN: [id number] / AMAN
--- NOTE | 2019-05-18 17:47 | P.CNNES ---
History of Present Illness Consult date: 05/18/19 Requesting physician: Shobha Benton Reason for Consult: Syncope History of Present Illness: Patient is a 73-year-old female admitted to the hospital yesterday after having a syncopal episode at home. She has history of hypothyroidism, dyslipidemia, who went to her primary physician yesterday after having an episode of syncope on 05/14/2019. Patient states that on that evening, she had a warm bath. She was getting out of the bathtub, when she became dizzy, everything started spinning, she felt weak, diaphoretic, lost balance and almost was falling, but her friend caught her. She thinks she may have passed out for a second or 2. Her friend noticed that she was pale that day and the next day. She stayed home, did not seek medical attention. She spoke to her primary physician on Friday, yesterday, who recommended her to go to the ER. Patient underwent Computed tomography scan of head showed no acute intracranial hemorrhage or midline shift. There is mild to moderate diffuse cerebral atrophy greatest over bilateral frontal lobes redemonstrated. No significant change from [address] CT. Carotid Doppler showed mild plaque bilaterally without hemodynamically significant stenosis seen in either ICA. Antegrade flow in both vertebral arteries. Chest x-ray showed chronic changes without acute pulmonary process. Blood tests shows WBC 3.6, hemoglobin 11.8. PT is 19.8, INR 2.0, sodium 132 potassium 3.9 renal functions normal. Liver panel normal, TSH normal 1.450. Patient denies any focal symptoms. Denies any numbness tingling. Patient states that she has been having episodes of vertigo, off and on for the last couple years. This used to occur 2-3 times a week, but since patient has s tarted taking meclizine 2 months ago, the episodes have much improved. She admits to slightly decreased hearing but denies any tinnitus or any pain in the ears. Patient has history of tobacco use of 1-2 pack per day for 20 years, quit in 1987. Denies any alcohol use on a regular basis. Denies diabetes. Does have hypertension. 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 She is on Coumadin. Review of Systems Patient has arthritis, denies any focal symptoms. Denies any chest pain shortness of breath wheezing or cough. She does get dizzy when she bends down. Does not occur when she looks up, or rolls over in the bed. Denies any focal symptoms. Past Medical History Past Medical History: Asthma, Blood Disorder, Cancer, COPD, Fibromyalgia, GERD/Reflux, Hyperlipidemia, Hypertension, Musculoskeletal Disorder, Osteoarthritis (OA), Pneumonia, Pulmonary Embolus (PE), Rheumatoid Arthritis (RA), Sleep Apnea/CPAP/BIPAP, Thyroid Disorder Additional Past Medical History / Comment(s): pulmonary embolism in August 2016 & 2011, coagulopathy w/MTHFR gene, spondylolisthesis & stenosis, osteoporosis, cervical cancer, IBS, takes trileptal for fibromyalgia, varicose veins, uses CPAP, hx falls R/T vertigo. History of Any Multi-Drug Resistant Organisms: None Reported Past Surgical History: Breast Surgery, Cholecystectomy, Heart Catheterization, Hernia Repair, Hysterectomy, Joint Replacement, Orthopedic Surgery Additional Past Surgical History / Comment(s): rt Rotator cuff repair, lt hip replacement x 2, lt shoulder replacement, bilat knee replacement, bilat knee arthroscopy, rt elbow surgery, multiple fatty tumors removed, zack cataracts removed, laparoscopic hiatal hernia surgery x2 - last 2016, rt hand surgery- knuckles, mass exc from rt breast, JONATHAN BSO, EGD, colonoscopy, Lipoma exc Past Anesthesia/Blood Transfusion Reactions: No Reported Reaction Additional Past Anesthesia/Blood Transfusion Reaction / Comment(s): "woke up with a sore jaw, bruising of face" once Past Psychological History: Depression, PTSD Smoking Status: Former smoker Past Alcohol Use History: Rare Additional Past Alcohol Use History / Comment(s): SMOKED 1-2ppd FOR 30 YEARS, QUIT 1987. Past Drug Use History: None Reported Additional Drug Use History / Comment(s): cbd cream topically prn - Past Family History Mother Family Medical History: Cancer, Congestive Heart Failure (CHF) Additional Family Medical History / Comment(s): . Medications and Allergies Home Medications Medication Instructions Recorded Confirmed Type Albuterol Sulfate [Proair Hfa] 2 puff INHALATION RT-Q4H PRN 06/28/15 05/17/19 Hi story Carvedilol [Coreg] 6.25 mg PO BID 06/28/15 05/17/19 History Fexofenadine HCl [Melany Allergy] 180 mg PO DAILY 06/28/15 05/17/19 History Levothyroxine Sodium [Synthroid] 50 mcg PO [facility] BRANSONSA 06/28/15 05/17/19 History Montelukast [Singulair] 10 mg PO HS 06/28/15 05/17/19 History Omeprazole 40 mg PO DAILY 06/28/15 05/17/19 History Potassium Chloride [K-Tab ER] 10 meq PO SUTUTHSA 06/28/15 05/17/19 History Acetaminophen [Tylenol] 1,000 mg PO Q6HR PRN 08/24/16 05/17/19 History Furosemide [Lasix] 20 mg PO DAILY 08/24/16 05/17/19 History OXcarbazepine [Trileptal] 150 mg PO BID 08/24/16 05/17/19 History Dicyclomine [Bentyl] 10 mg PO ACHS 12/03/16 05/17/19 History Warfarin Sodium [Coumadin] 7.5 mg PO SUMOWETHSA 12/03/16 05/17/19 History Warfarin [Coumadin] 5 mg PO TUFR 12/03/16 05/17/19 History L.acidoph,Paracasei, B.lactis 1 cap PO DAILY 11/11/18 05/17/19 History [Probiotic] Turmeric Root Extract [Turmeric] 500 mg PO DAILY 11/11/18 05/17/19 History Umeclidinium [place] [Incruse 1 puff INHALATION RT-DAILY 11/11/18 05/17/19 History Ellipta] buPROPion HCL [Wellbutrin XL] 300 mg PO DAILY 11/11/18 05/17/19 History Meclizine [Antivert] 12.5 mg PO Q8H 05/06/19 05/17/19 History Atorvastatin [Lipitor] 40 mg PO HS 05/17/19 05/17/19 History HYDROcodone/APAP 10-325MG [[place] 1 tab PO Q6H PRN 05/17/19 05/17/19 History 10-325] Levothyroxine Sodium [Synthroid] 75 mcg PO MOWEFR 05/17/19 05/17/19 History Magnesium Oxide [Mag-Ox] 400 mg PO DAILY 05/17/19 05/17/19 History Pramipexole [Mirapex] 0.25 mg PO HS 05/17/19 05/17/19 History Sertraline [Zoloft] 100 mg PO DAILY 05/17/19 05/17/19 History Allergies Allergy/AdvReac Type Severity Reaction Status Date / Time tetanus and diphtheria Allergy Severe Anaphylaxis Verified 05/17/19 17:25 toxoids [tetanus & diphtheria toxoids] gluten Allergy Diarrhea Verified 05/17/19 17:25 Iodinated Contrast Media Allergy Anaphylaxis Verified 05/17/19 17:25 [Iodinated Contrast- Oral and IV Dye] red dye Allergy Anaphylaxis Verified 05/17/19 17:25 nick AdvReac Unknown ASTHMA Verified 05/17/19 17:25 ATTACK perfume AdvReac Unknown ASTHMA Verified 05/17/19 17:25 ATTACK Milk Containing Products AdvReac causes IBS Verified 05/17/19 17:25 [Dairy] symptoms mold AdvReac Itching Verified 05/17/19 17:25 pollen extracts AdvReac Itching Verified 05/17/19 17:25 Physical Examination - Vital Signs Vital Signs: Vital Signs Temp Pulse Pulse Pulse Pulse Pulse Resp 05/18/19 16:48 68 05/18/19 16:41 68 05/18/19 09:15 68 05/18/19 09:04 68 05/18/19 08:00 97.9 F 60 18 05/18/19 04:00 98.5 F 61 16 05/17/19 23:15 98.4 F 55 L 18 05/17/19 20:15 97.9 F 55 L 18 05/17/19 18:54 61 62 58 L 05/17/19 18:46 BP BP BP Pulse Ox 05/18/19 16:48 05/18/19 16:41 05/18/19 09:15 05/18/19 09:04 05/18/19 08:00 138/75 94 L 05/18/19 04:00 126/70 93 L 05/17/19 23:15 141/66 95 05/17/19 20:15 147/74 96 05/17/19 18:54 05/17/19 18:46 174/79 187/86 185/75 Intake and Output 05/18/19 05/18/19 05/18/19 06:59 14:59 22:59 Intake Total 360 Balance 360 Intake: Oral 360 Other: Voiding Method Toilet # Voids 1 Weight 90.4 kg On examination patient is an elderly female, in no distress. Patient is alert and awake, oriented to time place and person. Speech and language functions are normal. Attention and concentration fund of knowledge is adequate. On cranial nerve exam admission pupils are round and reactive to light, visual trejo are full on confrontation, extraocular muscles are intact with no nystagmus. Face is symmetric, tongue protrudes to the midline. Palatal elevation and sensation normal. On muscle strength testing there is no clinical or drift and the strength is normal in arms and legs distally and proximally. Reflexes symmetric and plantars downgoing. Sensory touch is equal. No ataxia for [id number] testing. Tone and bulk of muscles normal. There is no carotid bruit or murmur, peripheral pulses present. Results - Laboratory Findings CBC and BMP: 05/18/19 05:30 05/18/19 05:30 Abnormal Lab Findings: Abnormal Labs 05/17/19 05/17/19 05/17/19 18:05 18:05 18:05 WBC Lymphocytes # 0.9 L PT 19.8 H INR 2.0 H Sodium 135 L Creatinine 1.12 H Alkaline Phosphatase 142 H Total Protein Albumin 05/18/19 05/18/19 05:30 05:30 WBC 3.6 L Lymphocytes # PT INR Sodium 132 L Creatinine Alkaline Phosphatase Total Protein 5.5 L Albumin 3.2 L Assessment and Plan Assessment: * Recurrent episodes of vertigo, probably due to peripheral vestibular dysfunction. * Patient with history of recurrent PE, on long-term anticoagulation. Her INR was therapeutic on arrival to the hospital. * Fibromyalgia Plan: * All neurological workup including computed tomography scan of head, carotid Doppler and EEG are normal. No other neurological workup indicated. * Cardiology also following the patient, who believes is vasovagal syncope. 2-D echo has been ordered, pending. Patient undergoing telemetry monitoring. * If cardiac workup also comes negative, would suggest outpatient ENT evaluation to evaluate for peripheral vestibular dysfunction with ENG/VNG. * I will check B12, folate levels. * Continue meclizine. * Continue Coumadin, target INR 2.0-3.0.
[2019-05-18] MEDS ORDERED: WARFARIN 5 MG TAB PO SCH (18:00)
[2019-05-18] MEDS: PANTOPRAZOLE 40 MG TABLET PO SCH (18:08)
[2019-05-18] MEDS: SODIUM CHLORIDE 0.9% 1,000 ML IV SCH (18:09)
[2019-05-18] MEDS: ACETAMINOPHEN TAB 500 MG TAB PO PRN (20:51)
[2019-05-18] MEDS: ATORVASTATIN 10 MG TAB PO SCH (20:51)
[2019-05-18] MEDS: PRAMIPEXOLE 0.25 MG TAB PO SCH (20:51)
[2019-05-18] MEDS: MONTELUKAST 10 MG TAB PO SCH (22:06)
[2019-05-19 01:41] VITALS: RESP 16
[2019-05-19 06:27] LABS: Basophils % (A) 1 %; Eosinophils # (A) 0.1 k/uL (0-0.7); Eosinophils % (A) 3 %; HCT 37.7 % (34.0-46.0); HGB 12.3 gm/dL (11.4-16.0); Lymphocytes # (A) 0.9 k/uL (1.0-4.8); Lymphocytes % (A) 27 %; MCH 28.7 pg (25.0-35.0); MCHC 32.7 g/dL (31.0-37.0); MCV 87.8 fL (80.0-100.0); Mean Platelet Volume 7.4; Monocytes # (A) 0.3 k/uL (0-1.0); Monocytes % (A) 8 %; Neutrophils # (A) 2.1 k/uL (1.3-7.7); Neutrophils % (A) 59 %; Platelet Count 171 k/uL (150-450); RBC 4.29 m/uL (3.80-5.40); RDW 13.8 % (11.5-15.5); WBC 3.5 k/uL (3.8-10.6)
[2019-05-19] MEDS ORDERED: LEVOTHYROXINE 75 MCG TAB PO SCH (06:30)
[2019-05-19] MEDS: MECLIZINE 12.5 MG TAB PO SCH ×2 (06:39→12:59)
[2019-05-19] MEDS: CARVEDILOL 6.25 MG TAB PO SCH (06:39)
[2019-05-19] MEDS: DICYCLOMINE 10 MG CAP PO SCH ×2 (06:40→12:59)
[2019-05-19 06:49] LABS: Calcium 8.6 mg/dL (8.4-10.2)
[2019-05-19 08:31] VITALS: TEMP 97.7
[2019-05-19] MEDS: IPRATROPIUM 0.5 MG/2.5 ML NEBU INHALATION SCH ×2 (08:36→10:57)
[2019-05-19 09:20] LABS: INR 2.6 (<1.2)
[2019-05-19] MEDS: buPROPion XL 300 MG TAB.ER.24H PO SCH (10:03)
[2019-05-19] MEDS: SODIUM CHLORIDE 0.9% 1,000 ML IV SCH (10:04)
[2019-05-19] MEDS: LORATADINE 10 MG TAB PO SCH (10:04)
[2019-05-19] MEDS: OXcarbazepine 150 MG TAB PO SCH (10:04)
[2019-05-19] MEDS: SERTRALINE 100 MG TAB PO SCH (10:04)
[2019-05-19] MEDS: FUROSEMIDE 20 MG TAB PO SCH (10:04)
[2019-05-19] MEDS: MAGNESIUM OXIDE 400 MG TAB PO SCH (10:04)
--- NOTE | 2019-05-19 11:00 | ECHOF ---
Referral Reason:syncope MEASUREMENTS -------- HEIGHT: 157.5 cm WEIGHT: 93.4 kg BP: RVIDd: 3.5 cm (< 3.3) IVSd: 1.3 cm (0.6 - 1.1) LVIDd: 3.8 cm (3.9 - 5.3) LVPWd: 1.6 cm (0.6 - 1.1) IVSs: 1.5 cm LVIDs: 2.9 cm LVPWs: 1.8 cm LA Diam: 4.6 cm (2.7 - 3.8) LAESV Index (A-L): 44.10 ml/m Ao Diam: 2.4 cm (2.0 - 3.7) AV Cusp: 1.6 cm (1.5 - 2.6) LA Diam: 4.0 cm (2.7 - 3.8) MV EXCURSION: 17.701 mm (> 18.000) MV EF SLOPE: 71 mm/s (70 - 150) EPSS: 0.2 cm MV E Paul: 0.51 m/s MV DecT: 177 ms MV A Paul: 0.71 m/s MV E/A Ratio: 0.72 RAP: 5.00 mmHg RVSP: 38.30 mmHg FINDINGS -------- Sinus rhythm. This was a technically good study. Overall left ventricular systolic function is normal with, an EF between 55 - 60 %. The left atrium is moderately dilated. LA is moderately dilated 34-39 ml/m2 The right atrial size is normal. The aortic valve is trileaflet, and appears structurally normal. No aortic stenosis or regurgitation. Mild mitral annular calcification present. Mild mitral regurgitation is present. Mild tricuspid regurgitation present. Right ventricular systolic pressure is normal at < 35 mmHg. There is no evidence of pulmonary hypertension. There is no pulmonic regurgitation present. There is no pericardial effusion. CONCLUSIONS -------- 1. Sinus rhythm. 2. This was a technically good study. 3. Overall left ventricular systolic function is normal with, an EF between 55 - 60 %. 4. The left atrium is moderately dilated. 5. LA is moderately dilated 34-39 ml/m2 6. The right atrial size is normal. 7. The aortic valve is trileaflet, and appears structurally normal. No aortic stenosis or regurgitati on. 8. Mild mitral annular calcification present. 9. Mild mitral regurgitation is present. 10. Mild tricuspid regurgitation present. 11. Right ventricular systolic pressure is normal at < 35 mmHg. 12. There is no evidence of pulmonary hypertension. 13. There is no pulmonic regurgitation present. 14. There is no pericardial effusion. [employer] TECHNICIAN: Jeanne Valenzuela RDCS
[2019-05-19 11:54] VITALS: BP 147/70; PULSE 56
--- NOTE | 2019-05-19 14:16 | P.PN ---
Subjective Progress Note Date: 05/19/19 Patient feeling better, wants to go home. No new neurological symptoms. Dizziness improved. No syncopal spells. Objective - Vital Signs Vital signs: Vital Signs Temp 97.7 F 05/19/19 08:20 Pulse 56 L 05/19/19 11:53 Resp 16 05/19/19 11:53 BP 147/70 05/19/19 11:53 Pulse Ox 95 05/19/19 11:53 Intake & Output 05/18/19 05/19/19 05/19/19 18:59 06:59 18:59 Intake Total 360 360 Output Total 400 Balance -40 360 Weight 91.6 kg Intake: Oral 360 360 Output: Urine 400 Other: Voiding Method Toilet Toilet # Voids 2 1 - Exam Nonfocal. - Labs CBC & Chem 7: 05/19/19 06:11 05/19/19 06:11 Labs: Abnormal Lab Results - Last 24 Hours (Table) 05/19/19 05/19/19 05/19/19 Range/Units 06:11 06:11 09:02 WBC 3.5 L (3.8-10.6) k/uL Lymphocytes # 0.9 L (1.0-4.8) k/uL PT 25.0 H (9.0-12.0) sec INR 2.6 H (<1.2) Sodium 133 L (137-145) mmol/L Creatinine 1.15 H (0.52-1.04) mg/dL Assessment and Plan Assessment: * Recurrent episodes of vertigo, probably due to peripheral vestibular d ysfunction. * Patient with history of recurrent PE, on long-term anticoagulation. Her INR was therapeutic on arrival to the hospital. * Fibromyalgia Plan: * All neurological workup including computed tomography scan of head, carotid Doppler and EEG are normal. No other neurological workup indicated. * Cardiology also following the patient, who believes is vasovagal syncope. * 2-D echo showed EF 55-60%. Left atrium is moderately dilated. No aortic stenosis or regurgitation. * Patient undergoing telemetry monitoring. * If cardiac workup also comes negative, would suggest outpatient ENT evaluation to evaluate for peripheral vestibular dysfunction with ENG/VNG. * B12, folate levels still pending. * Continue meclizine. * Continue Coumadin, INR 2.6 today, therapeutic.
--- NOTE | 2019-05-19 14:19 | P.PN ---
Subjective Progress Note Date: 05/19/19 This is a 73-year-old female presented to the hospital following a syncopal episode. She was seen in consultation by Dr. Zayas, no evidence of any orthostatic hypotension, no arrhythmias have been noted on the monitor. Echocardiogram with Doppler study was performed which revealed an ejection fr action of 55-60%. Patient denies any dizziness or lightheadedness today, overall feels well. From cardiology's perspective she may be able to be discharged home today, we'll recommend that she potato picker a 30 day event monitor at the office on discharge, we will also schedule her for a stress Cardiolite in the office in the next couple of weeks, follow-up appointment with Dr. Mcnally in 4-5 weeks. Objective - Vital Signs Vital signs: Vital Signs Temp 97.7 F 05/19/19 08:20 Pulse 56 L 05/19/19 11:53 Resp 16 05/19/19 11:53 BP 147/70 05/19/19 11:53 Pulse Ox 95 05/19/19 11:53 Intake & Output 05/18/19 05/19/19 05/19/19 18:59 06:59 18:59 Intake Total 360 360 Output Total 400 Balance -40 360 Weight 91.6 kg Intake: Oral 360 360 Output: Urine 400 Other: Voiding Method Toilet # Voids 2 1 - Exam PHYSICAL EXAMINATION: GENERAL: 73-year-old female in no acute distress at the time of my examination HEENT: Head is atraumatic, normocephalic. Pupils equal, round. Sclera anicteric. Conjunctiva are clear. Mucous membranes of the mouth are moist. Neck is supple. There is no elevated jugular venous pressure. No carotid bruit is heard. HEART EXAMINATION: Heart S1, S2 normal. No murmur or gallop heard. CHEST EXAMINATION: Lungs are clear to auscultation and precussion. No chest wall tenderness is noted on palpation or with deep breathing. ABDOMEN: Soft, nontender. Bowel sounds are heard. No organomegaly noted. EXTREMITIES: 2+ peripheral pulses with no evidence of peripheral edema and no calf tenderness noted. NEUROLOGIC patient is awake, alert and oriented 3 . . - Labs CBC & Chem 7: 05/19/19 06:11 05/19/19 06:11 Labs: Abnormal Lab Results - Last 24 Hours (Table) 05/19/19 05/19/19 05/19/19 Range/Units 06:11 06:11 09:02 WBC 3.5 L (3.8-10.6) k/uL Lymphocytes # 0.9 L (1.0-4.8) k/uL PT 25.0 H (9.0-12.0) sec INR 2.6 H (<1.2) Sodium 133 L (137-145) mmol/L Creatinine 1.15 H (0.52-1.04) mg/dL Assessment and Plan Plan: Assessment and plan #1 syncope, no evidence of any orthostatic hypotension, no arrhythmias noted on the monitor. Echocardiogram with Doppler study revealed a normal left ventricular systolic function. #2 hypothyroidism #3 hyperlipidemia #5 paroxysmal atrial fibrillation #6 irritable bowel syndrome #7 prior PE Plan From cardiology's perspective, patient may be discharged once cleared by primary. We'll recommend that she potato picker a 30 day event monitor at the office on discharge, we will schedule her for a stress Cardiolite as an outpatient, follow-up appointment in the office with Dr. Mcnally in 5 weeks. DNP note has been reviewed, I agree with a documented findings and plan of care. Patient was seen and examined.
--- NOTE | 2019-05-19 15:09 | P.DS ---
Providers Date of admission: 05/17/19 16:09 Expected date of discharge: 05/19/19 Attending physician: Obdulio Grimaldo Consults: 05/17/19 17:17 Consult Physician Routine Consulting Provider: Sal Domínguez Consult Reason/Comments: syncope Do you want consulting provider notified?: Yes Placement Type Exists?: Yes 05/18/19 16:00 Consult Physician Routine Consulting Provider: Darinel Davis Consult Reason/Comments: syncope Do you want consulting provider notified?: Yes Primary care physician: [facility] Hospital Course: Final Diagnoses: Syncope, negative for orthostatic hypotension, arrhythmias, suspect vasovagal Paroxysmal atrial fibrillation Hypothyroidism Hyperlipidemia Irritable bowel syndrome History of prior PE Hospital course: This is a 73-year-old admitted with syncope and multiple other medical issues. Evaluated by cardiology and neurology. Dizziness subsided, no further syncope spells. Neurology and cardiology workups remarkable. Cleared by both neurology and cardiology for discharge. Patient is being discharged home in a stable condition with guarded prognosis. Outpatient patient has been advised to follow-up with ENT, to rule out peripheral vestibular dysfunction. Maintained on Antivert. Outpatient 30 day event monitor and outpatient stress test as per cardiology. EXAM: GENERAL: Alert and oriented 3, no acute distress CARDIOVASCULAR: S1, S2 regular. No murmur. RESPIRATION: Breath sounds diminished in the bases. ABDOMEN: Soft, nontender . Positive Bowel sounds. NERVOUS SYSTEM: No focal deficits. The impression and plan of care has been dictated as directed. : I performed a history and examination of this patient, discussed the same with the dictator. I agree with the dictator's note ,documented as a scribe. Any additional findings or plans will be noted. Patient Condition at Discharge: Stable Plan - Discharge Summary Discharge Rx Participant: Yes New Discharge Prescriptions: New Atorvastatin [Lipitor] 10 mg PO HS #30 tab Continue Potassium Chloride [K-Tab ER] 10 meq PO SUTUTHSA Omeprazole 40 mg PO DAILY Montelukast [Singulair] 10 mg PO HS Levothyroxine Sodium [Synthroid] 50 mcg PO SUTUTHSA Carvedilol [Coreg] 6.25 mg PO BID Albuterol Sulfate [Proair Hfa] 2 puff INHALATION RT-Q4H PRN PRN Reason: Shortness Of Breath Fexofenadine HCl [Melany Allergy] 180 mg PO DAILY Acetaminophen [Tylenol] 1,000 mg PO Q6HR PRN PRN Reason: Pain OXcarbazepine [Trileptal] 150 mg PO BID Furosemide [Lasix] 20 mg PO DAILY Dicyclomine [Bentyl] 10 mg PO ACHS Warfarin [Coumadin] 5 mg PO TUFR Warfarin Sodium [Coumadin] 7.5 mg PO SUMOWETHSA L.acidoph,Paracasei, B.lactis [Probiotic] 1 cap PO DAILY Umeclidinium [place] [Incruse Ellipta] 1 puff INHALATION RT-DAILY buPROPion HCL [Wellbutrin XL] 300 mg PO DAILY Turmeric Root Extract [Turmeric] 500 mg PO DAILY Meclizine [Antivert] 12.5 mg PO Q8H Sertraline [Zoloft] 100 mg PO DAILY HYDROcodone/APAP 10-325MG [[place] 10-325] 1 tab PO Q6H PRN PRN Reason: Pain Magnesium Oxide [Mag-Ox] 400 mg PO DAILY Levothyroxine Sodium [Synthroid] 75 mcg PO MOWEFR Changed Pramipexole [Mirapex] 0.75 mg PO HS #90 tab Discontinued Atorvastatin [Lipitor] 40 mg PO HS Discharge Medication List Albuterol Sulfate [Proair Hfa] 2 puff INHALATION RT-Q4H PRN 06/28/15 [History] Carvedilol [Coreg] 6.25 mg PO BID 06/28/15 [History] Fexofenadine HCl [Melany Allergy] 180 mg PO DAILY 06/28/15 [History] Levothyroxine Sodium [Synthroid] 50 mcg PO SUTUTHSA 06/28/15 [History] Montelukast [Singulair] 10 mg PO HS 06/28/15 [History] Omeprazole 40 mg PO DAILY 06/28/15 [History] Potassium Chloride [K-Tab ER] 10 meq PO SUTUTHSA 06/28/15 [History] Acetaminophen [Tylenol] 1,000 mg PO Q6HR PRN 08/24/16 [History] Furosemide [Lasix] 20 mg PO DAILY 08/24/16 [History] OXcarbazepine [Trileptal] 150 mg PO BID 08/24/16 [History] Dicyclomine [Bentyl] 10 mg PO ACHS 12/03/16 [History] Warfarin Sodium [Coumadin] 7.5 mg PO SUMOWETHSA 12/03/16 [History] Warfarin [Coumadin] 5 mg PO TUFR 12/03/16 [History] L.acidoph,Paracasei, B.lactis [Probiotic] 1 cap PO DAILY 11/11/18 [History] Turmeric Root Extract [Turmeric] 500 mg PO DAILY 11/11/18 [History] Umeclidinium [place] [Incruse Ellipta] 1 puff INHALATION RT-DAILY 11/11/18 [History] buPROPion HCL [Wellbutrin XL] 300 mg PO DAILY 11/11/18 [History] Meclizine [Antivert] 12.5 mg PO Q8H 05/06/19 [History] HYDROcodone/APAP 10-325MG [[place] 10-325] 1 tab PO Q6H PRN 05/17/19 [History] Levothyroxine Sodium [Synthroid] 75 mcg PO MOWEFR 05/17/19 [History] Magnesium Oxide [Mag-Ox] 400 mg PO DAILY 05/17/19 [History] Sertraline [Zoloft] 100 mg PO DAILY 05/17/19 [History] Atorvastatin [Lipitor] 10 mg PO HS #30 tab 05/19/19 [Rx] Pramipexole [Mirapex] 0.75 mg PO HS #90 tab 05/19/19 [Rx] Follow up Appointment(s)/Referral(s): Obdulio Grimaldo MD [Primary Care Provider] - 3 Days (Please call office for telephone appointment with Dr. Grimaldo or office appointment if you prefer. ) Henry Jorgensen MD [STAFF PHYSICIAN] - 1 Week (ENT - Rule out peripheral vestibular dysfunction. ) Pratik Mcnally MD [STAFF PHYSICIAN] - 06/01/19 7:00 am (Stress test at [facility], office will mail you instructions prior to test. equipment monitor phototypesetting to be mailed to your house within the next couple of days from office. ) Ambulatory/Diagnostic Orders: Prothrombin Time INR [LAB.AMB] Time Frame: 3 Days, Location: None Selected Patient Instructions/Handouts: Heart Healthy Diet (DC), Syncope (DC), Hypertens ion (DC) Activity/Diet/Wound Care/Special Instructions: 30 day event monitor as per cardiology
[2019-05-19 16:18] LABS: Folate, Serum 12.4 ng/mL
== END 2019-05-19 15:25 | disposition home or self-care (01) ==
LOC: 3SCARD 16:09
PROVIDERS: ADMIT Family Medicine; ATTEND Family Medicine
DX: R55 Syncope and collapse (principal); I48.0 Paroxysmal atrial fibrillation; F32.9 Major depressive disorder, single episode, unspecified; E03.9 Hypothyroidism, unspecified; E78.5 Hyperlipidemia, unspecified; K58.9 Irritable bowel syndrome, unspecified; R07.89 Other chest pain; M79.7 Fibromyalgia; R29.6 Repeated falls; J44.9 Chronic obstructive pulmonary disease, unspecified; I10 Essential (primary) hypertension; R61 Generalized hyperhidrosis; R53.1 Weakness; E72.12 Methylenetetrahydrofolate reductase deficiency; M19.90 Unspecified osteoarthritis, unspecified site; M06.9 Rheumatoid arthritis, unspecified; K21.9 Gastro-esophageal reflux disease without esophagitis; G47.30 Sleep apnea, unspecified; Z99.89 Dependence on other enabling machines and devices; M48.00 Spinal stenosis, site unspecified; M43.10 Spondylolisthesis, site unspecified; M81.0 Age-related osteoporosis without current pathological fracture; I83.90 Asymptomatic varicose veins of unspecified lower extremity; F43.10 Post-traumatic stress disorder, unspecified; H91.90 Unspecified hearing loss, unspecified ear; Z79.899 Other long term (current) drug therapy; Z86.711 Personal history of pulmonary embolism; Z79.01 Long term (current) use of anticoagulants; Z79.82 Long term (current) use of aspirin; Z79.890 Hormone replacement therapy; Z79.891 Long term (current) use of opiate analgesic; Z90.49 Acquired absence of other specified parts of digestive tract; Z87.891 Personal history of nicotine dependence; Z87.01 Personal history of pneumonia (recurrent); Z85.41 Personal history of malignant neoplasm of cervix uteri; Z91.041 Radiographic dye allergy status; Z91.02 Food additives allergy status; Z91.011 Allergy to milk products; Z88.7 Allergy status to serum and vaccine; Z91.018 Allergy to other foods; Z91.048 Other nonmedicinal substance allergy status; Z82.49 Family history of ischemic heart disease and other diseases of the circulatory system; Z80.9 Family history of malignant neoplasm, unspecified; Z96.653 Presence of artificial knee joint, bilateral; Z96.642 Presence of left artificial hip joint; Z96.612 Presence of left artificial shoulder joint; Z90.710 Acquired absence of both cervix and uterus
CPT/HCPCS: 93005; 94660; 94640 ×4; 95816; 93306; 85379; 83880; 80053 ×2; 80048; 84443; 82607; 82746; 84484; 85025 ×3; 85610 ×2; 71046; 93880; 70450; G0378 ×3; G0379

== ENCOUNTER 2019-05-28 19:19 | Observation (INO) | payer MEDICARE, OTHER ==
--- NOTE | 2019-05-28 19:42 | ED ---
Chest Pain HPI - General Chief Complaint: Chest Pain Stated Complaint: chest pain Time Seen by Provider: 05/28/19 19:22 - History of Present Illness Initial Comments: Patient is a 73-year-old female, with multiple comorbidities including hypertension, PEs on Coumadin therapy, COPD, presenting to emergency Department with complaints of chest pain that happened just prior to arrival. Patient states she was sitting in her chair, watching TV getting ready to eat dinner when she had an acute onset of midsternal chest pain with radiation into her back. Patient states the pain lasted a few minutes and then once EMS arrived the pain was starting to subside. Patient was given a 325mg aspirin and Zofran in the EMS prior to arrival. Currently she states her pain is a 1/10. She states she does have mild shortness of breath however that has her normal dose since she has COPD. Patient was recently admitted to the hospital for a syncopal episode. She was discharged last week. She does have an appointment with Dr. Mcnally, cardiology, for a stress test on Friday. Patient denies any recent fever, chills, cough, abdominal pain. She denies vomiting or diarrhea. She has no other complaints at this time. Upon arrival to the ER, patient's pulse 55, 94% in room air, BP is 185/78, respiratory rate 16. - Related Data Home Medications Medication Instructions Recorded Confirmed Albuterol Sulfate [Proair Hfa] 2 puff INHALATION RT-Q4H PRN 06/28/15 05/17/19 Carvedilol [Coreg] 6.25 mg PO BID 06/28/15 05/17/19 Fexofenadine HCl [Melany Allergy] 180 mg PO DAILY 06/28/15 05/17/19 Levothyroxine Sodium [Synthroid] 50 mcg PO SUTUTHSA 06/28/15 05/17/19 Montelukast [Singulair] 10 mg PO HS 06/28/15 05/17/19 Omeprazole 40 mg PO DAILY 06/28/15 05/17/19 Potassium Chloride [K-Tab ER] 10 meq PO SUTUTHSA 06/28/15 05/17/19 Acetaminophen [Tylenol] 1,000 mg PO Q6HR PRN 08/24/16 05/17/19 Furosemide [Lasix] 20 mg PO DAILY 08/24/16 05/17/19 OXcarbazepine [Trileptal] 150 mg PO BID 08/24/16 05/17/19 Dicyclomine [Bentyl] 10 mg PO ACHS 12/03/16 05/17/19 Warfarin Sodium [Coumadin] 7.5 mg PO SUMOWETHSA 12/03/16 05/17/19 Warfarin [Coumadin] 5 mg PO TUFR 12/03/16 05/17/19 L.acidoph,Paracasei, B.lactis 1 cap PO DAILY 11/11/18 05/17/19 [Probiotic] Turmeric Root Extract [Turmeric] 500 mg PO DAILY 11/11/18 05/17/19 Umeclidinium [place] [Incruse 1 puff INHALATION RT-DAILY 11/11/18 05/17/19 Ellipta] buPROPion HCL [Wellbutrin XL] 300 mg PO DAILY 11/11/18 05/17/19 Meclizine [Antivert] 12.5 mg PO Q8H 05/06/19 05/17/19 HYDROcodone/APAP 10-325MG [[place] 1 tab PO Q6H PRN 05/17/19 05/17/19 10-325] Levothyroxine Sodium [Synthroid] 75 mcg PO MOWEFR 05/17/19 05/17/19 Magnesium Oxide [Mag-Ox] 400 mg PO DAILY 05/17/19 05/17/19 Sertraline [Zoloft] 100 mg PO DAILY 05/17/19 05/17/19 Previous Rx's Medication Instructions Recorded Atorvastatin [Lipitor] 10 mg PO HS #30 tab 05/19/19 Pramipexole [Mirapex] 0.75 mg PO HS #90 tab 05/19/19 Allergies Allergy/AdvReac Type Severity Reaction Status Date / Time tetanus and diphtheria Allergy Severe Anaphylaxis Verified 05/17/19 17:25 toxoids [tetanus & diphtheria toxoids] gluten Allergy Diarrhea Verified 05/17/19 17:25 Iodinated Contrast Media Allergy Anaphylaxis Verified 05/17/19 17:25 [Iodinated Contrast- Oral and IV Dye] red dye Allergy Anaphylaxis Verified 05/17/19 17:25 nick AdvReac Unknown ASTHMA Verified 05/17/19 17:25 ATTACK perfume AdvReac Unknown ASTHMA Verified 05/17/19 17:25 ATTACK Milk Containing Products AdvReac causes IBS Verified 05/17/19 17:25 [Dairy] symptoms mold AdvReac Itching Verified 05/17/19 17:25 pollen extracts AdvReac Itching Verified 05/17/19 17:25 Review of Systems ROS Statement: Those systems with pertinent positive or pertinent negative responses have been documented in the HPI. ROS Other: All systems not noted in ROS Statement are negative. EKG Findings - EKG Comments: EKG Findings:: Ancillary 58, P or interval 162, QTC 414. Sinus bradycardia, otherwise normal ECG. No signs of acute ischemia. Similar to previous EKG on 05/17/2019. Past Medical History Past Medical History: Asthma, Blood Disorder, Cancer, COPD, Fibromyalgia, GERD/Reflux, Hyperlipidemia, Hypertension, Musculoskeletal Disorder, Osteoarthritis (OA), Pneumonia, Pulmonary Embolus (PE), Rheumatoid Arthritis (RA), Sleep Apnea/CPAP/BIPAP, Thyroid Disorder Additional Past Medical History / Comment(s): pulmonary embolism in August 2016 & 2012, coagulopathy w/MTHFR gene, spondylolisthesis & stenosis, osteoporosis, cervical cancer, IBS, takes trileptal for fibromyalgia, varicose veins, uses CPAP, hx falls R/T vertigo. History of Any Multi-Drug Resistant Organisms: None Reported Past Surgical History: Breast Surgery, Cholecystectomy, Heart Catheterization, Hernia Repair, Hysterectomy, Joint Replacement, Orthopedic Surgery Additional Past Surgical History / Comment(s): rt Rotator cuff repair, lt hip replacement x 2, lt shoulder replacement, bilat knee replacement, bilat knee arthroscopy, rt elbow surgery, multiple fatty tumors removed, zack cataracts removed, laparoscopic hiatal hernia surgery x2 - last 2016, rt hand surgery- knuckles, mass exc from rt breast, JONATHAN BSO, EGD, colonoscopy, Lipoma exc Past Anesthesia/Blood Transfusion Reactions: No Reported Reaction Additional Past Anesthesia/Blood Transfusion Reaction / Comment(s): "woke up with a sore jaw, bruising of face" once Past Psychological History: Depression, PTSD Smoking Status: Former smoker Past Alcohol Use History: Rare Additional Past Alcohol Use History / Comment(s): SMOKED 1-2ppd FOR 30 YEARS, QUIT 1987. Past Drug Use History: None Reported Additional Drug Use History / Comment(s): cbd cream topically prn - Past Family History Mother Family Medical History: Cancer, Congestive Heart Failure (CHF) Additional Family Medical History / Comment(s): . General Exam - General Exam Comments Initial Comments: GENERAL: Well-appearing, well-nourished and in no acute distress. HEAD: Atraumatic, normocephalic. EYES: Pupils equal round and reactive to light, extraocular movements intact, sclera anicteric, conjunctiva are normal. ENT: TMs normal, nares patent, oropharynx clear without exudates. Moist mucous membranes. NECK: Normal range of motion, supple without lymphadenopathy or JVD. LUNGS: Breath sounds clear to auscultation bilaterally and equal. No wheezes rales or rhonchi. HEART: Regular rate and rhythm without murmurs, rubs or gallops. ABDOMEN: Soft, nontender, normoactive bowel sounds. No guarding, no rebound. No masses appreciated. : Deferred EXTREMITIES: Normal range of motion, no pitting or edema. No clubbing or cyanosis. NEUROLOGICAL: Cranial nerves II through XII grossly intact. Normal speech, normal gait. PSYCH: Normal mood, normal affect. SKIN: Warm, Dry, normal turgor, no rashes or lesions noted. Course Vital Signs 05/28/19 05/28/19 19:24 21:31 Pulse Rate 55 L 66 Respiratory 16 16 Rate Blood Pressure 185/78 134/86 O2 Sat by Pulse 94 L 96 Oximetry Chest Pain [facility] Patient is a 73-year-old female with multiple comorbidities presenting with josep st pain that lasted for a few minutes prior to arrival. In the ER she has been symptom-free. Her vitals are stable. Her exam is unremarkable. Lab work shows an INR of 1.3, on Coumadin therapy. A d-dimer is normal. Troponin is normal. EKG shows no signs of ischemia. Chest x-ray shows some atelectasis at the left lung base that his increase in compared to old exam last week. No other acute abnormality. Given patient's earlier complaint and history, patient will be admitted for serial troponins and cardiac consult. Patient agrees with this plan and care. Patient was accepted by Dr. Grimaldo, cardiac consult. Case discussed with Dr. Zafar. Disposition Clinical Impression: Chest pain Disposition: ADMITTED IP TO THIS HOSP Condition: Stable Is patient prescribed a controlled substance at d/c from ED?: No Referrals: Obdulio Grimaldo MD [Primary Care Provider] - 1-2 days Decision Date: 05/28/19 Decision Time: 21:39
[2019-05-28 20:18] LABS: Basophils % (A) 0 %; Eosinophils # (A) 0.1 k/uL (0-0.7); Eosinophils % (A) 3 %; HCT 39.1 % (34.0-46.0); HGB 12.8 gm/dL (11.4-16.0); Lymphocytes # (A) 0.8 k/uL (1.0-4.8); Lymphocytes % (A) 16 %; MCH 28.5 pg (25.0-35.0); MCHC 32.8 g/dL (31.0-37.0); MCV 86.7 fL (80.0-100.0); Mean Platelet Volume 7.2; Monocytes # (A) 0.2 k/uL (0-1.0); Monocytes % (A) 5 %; Neutrophils # (A) 3.6 k/uL (1.3-7.7); Neutrophils % (A) 75 %; Platelet Count 211 k/uL (150-450); RBC 4.51 m/uL (3.80-5.40); RDW 14.2 % (11.5-15.5); WBC 4.9 k/uL (3.8-10.6)
[2019-05-28 20:31] LABS: D-Dimer 0.2 mg/L FEU (<0.60); INR 1.3 (<1.2); Partial Thromboplastin Time 27.2 sec (22.0-30.0); Prothrombin Time 13.4 sec (9.0-12.0)
[2019-05-28 20:35] LABS: Albumin 3.7 g/dL (3.5-5.0); Calcium 8.9 mg/dL (8.4-10.2); Magnesium 1.8 mg/dL (1.6-2.3); Potassium 4.1 mmol/L (3.5-5.1); Total Bilirubin 0.2 mg/dL (0.2-1.3)
--- NOTE | 2019-05-28 21:09 | XR ---
EXAMINATION TYPE: XR chest 2V DATE OF EXAM: 05/28/2019 COMPARISON: NONE HISTORY: Short of breath. Chest pain TECHNIQUE: Single view FINDINGS: Heart is normal. Lungs are clear of consolidation. There is some atelectasis left lung base . There is left shoulder prosthesis. There is right shoulder surgery. There is no heart failure. IMPRESSION: There is some atelectasis at the left lung base increased compared to old exam. Normal he art.
[2019-05-28] MEDS ORDERED: NITROGLYCERIN SL TABS 0.4 MG TAB SUBLINGUAL PRN (21:36)
[2019-05-29 07:26] VITALS: BP 133/75; PULSE 50; RESP 19; TEMP 97.7
[2019-05-29] MEDS ORDERED: HYDROcodone/APAP 10-325MG 1 EACH TAB PO PRN (07:54)
[2019-05-29] MEDS ORDERED: ACETAMINOPHEN TAB 500 MG TAB PO PRN (07:54)
[2019-05-29] MEDS ORDERED: MECLIZINE 12.5 MG TAB PO SCH (08:00)
[2019-05-29] MEDS ORDERED: POTASSIUM CHLORIDE ER 10 MEQ TAB.ER.PRT PO SCH (08:00)
[2019-05-29] MEDS ORDERED: WARFARIN 7.5 MG TAB PO ONE (08:30)
[2019-05-29] MEDS ORDERED: SERTRALINE 100 MG TAB PO SCH (09:00)
[2019-05-29] MEDS ORDERED: ASPIRIN 325 MG TAB PO SCH (09:00)
[2019-05-29] MEDS ORDERED: OXcarbazepine 150 MG TAB PO SCH (09:00)
[2019-05-29] MEDS ORDERED: PANTOPRAZOLE 40 MG TABLET PO SCH (09:00)
[2019-05-29] MEDS ORDERED: CARVEDILOL 6.25 MG TAB PO SCH (09:00)
[2019-05-29] MEDS ORDERED: FUROSEMIDE 20 MG TAB PO SCH (09:00)
[2019-05-29] MEDS ORDERED: buPROPion XL 300 MG TAB.ER.24H PO SCH (09:00)
[2019-05-29] MEDS ORDERED: MAGNESIUM OXIDE 400 MG TAB PO SCH (09:00)
[2019-05-29] MEDS ORDERED: LEVOTHYROXINE 50 MCG TAB PO SCH (09:00)
[2019-05-29 09:20] LABS: Cholesterol 157 mg/dL (<200); HDL Cholesterol 57 mg/dL (40-60); LDL Cholesterol,Calculated 82 mg/dL (0-99); Triglycerides 91 mg/dL (<150)
--- NOTE | 2019-05-29 09:20 | CONS ---
CONSULTATION This is a 73-year-old lady with a history of recent hospitalization with syncope, for which she was placed on an event monitor, and she is scheduled to see Dr. Mcnally in the office and have a stress test next Friday. She has a diagnosis of paroxysmal atrial fibrillation, maintaining sinus rhythm at this time. She is a reasonably active lady. She was in the hospital on May 17 with an episode of syncope or near-syncope or dizziness-type picture, from which she recovered completely. She usually takes Antivert. This was not a very unusual symptom for her, but after arrival in the hospital she did not have any further symptoms. She has a remote history of pulmonary embolism, atrial fibrillation, takes Coumadin, also has history of hypertension, hypothyroidism, bronchial asthma and COPD. She has a past smoker. She had a cardiac cath more than 10 years ago which was unremarkable for obstructive CAD, per patient. At the time of my evaluation, she is asymptomatic. Apparently she had an episode of what she describes as a sensation of sharp midsternal pain that seemed to last about 3 to 4 minutes and, by the time EMS arrived, her pain had resolved. She always has some nausea on and off. She is asymptomatic. Two sets of troponins are normal and EKG is also unremarkable. She is resting comfortably without symptoms. PAST MEDICAL HISTORY: 1. History of bronchial asthma. 2. Past history of smoking, COPD. 3. Fibromyalgia. 4. Hypertension. 5. Hyperlipidemia. 6. Recent hospitalization with syncope, for which she has an event monitor. 7. She has paroxysmal atrial fibrillation. 8. She also has sleep apnea and uses a CPAP machine. MEDICATIONS: Medications at home include: 1. Lasix 20 mg daily. 2. Coumadin 7 and 5 mg daily alternating, but INR is only 1.3. She checks her on PT/INR. I brought this to her attention. 3. She also takes Synthroid 75 mcg daily. 4. Magnesium supplements. 5. Carvedilol 6.25 mg b.i.d. 6. Singulair. ALLERGIES: There was IODINE allergy noted. PHYSICAL EXAMINATION: Blood pressure is 130/70. Pulse rate is about 60 per minute. HEENT: Unremarkable. Fundus was not examined by me. Neck is supple. No JVD. I do not hear a carotid bruit. Heart exam reveals S1, S2 heard normally. No significant murmurs. Lungs are clear. Abdomen is soft, nontender. Lower extremities reveal palpable pulses. No edema. Central nervous system is normal. EKG revealed sinus rhythm, sinus bradycardia, no acute changes. LABORATORY DATA: Laboratory data suggest that 2 sets of troponins are normal. All other labs are within normal limits. IMPRESSION: 1. Atypical chest pain. 2. History of pulmonary embolism. 3. History of paroxysmal atrial fibrillation, on Coumadin. PT/INR is subtherapeutic. D-dimer negative. 4. Past history of smoking and chronic obstructive pulmonary disease. 5. History of bronchial asthma. RECOMMENDATIONS: Patient's pain is atypical. Troponins are negative. EKG is unremarkable. I am recommending she can be discharged and have a stress test as scheduled next Friday and see Dr. Mcnally in followup. Discussed my thoughts in detail with the patient. Thank you very much for the consult. KATHRYNL / IJN: [id number] /
[2019-05-29] MEDS ORDERED: DICYCLOMINE 10 MG CAP PO SCH (12:30)
--- NOTE | 2019-05-29 17:11 | HP ---
HISTORY AND PHYSICAL This patient is a 73-year-old white female admitted with cough, congestion, failing Z- PERICO (azithromycin) as an outpatient with atypical chest pain. She is scheduled for a stress test on Friday. The patient does not think it is her heart, and Cardiology apparently has cleared her for discharge, although the note is not in. She is scheduled for a stress test, as mentioned. Since admission, her D-dimer is negative, negative cardiac enzymes; has been cleared by Cardiology. Three negative troponins. EKG sinus bradycardia. HOME MEDICATIONS: See list. She takes: 1. ProAir HFA. 2. Coreg 6.25 mg twice daily. 3. Melany 180 mg daily. 4. Synthroid 50 mcg daily. 5. Singulair 10 mg daily. 6. Lasix 20 daily. 7. Trileptal 150 mg twice daily. 8. Bentyl 10 before meals and at bedtime. 9. Coumadin 7.5 mg on Friday, Friday, Friday, , Friday; 5 mg on Friday and . 10.Incruse Ellipta one puff daily. 11.Wellbutrin XL 300 daily. 12.Antivert 12.5 every eight hours. 13.[place] 10 every six hours. 14.Synthroid 75 mcg daily. 15.Mag oxide 400 mg daily. 16.Zoloft 20 mg daily. ALLERGIES: MILK, MOLD, TALWIN. REVIEW OF SYSTEMS: She has back pain on the right side of her back when she coughs, more pleuritic or cervical and thoracic radiculopathy in nature. Negative D-dimer. Cardiovascular, S1, S2. Lungs are essentially clear. GI: Soft. Hematology: Negative Tr's. Vital signs are reviewed. PAST MEDICAL HISTORY: 1. Dyslipidemia. 2. Hypertension. 3. Osteoarthritis. 4. Pneumonia. 5. Pulmonary embolism. 6. Rheumatoid arthritis. 7. Sleep apnea. 8. Hypothyroidism. 9. Cancer. 10.Blood disorder. 11.Spondylolisthesis. 12.MTHR gene. PAST SURGICAL HISTORY: 1. Breast surgery. 2. Cholecystectomy. 3. Heart catheterizations. 4. Hernia repair. 5. Hysterectomy. 6. Joint replacement. 7. Orthopedic surgery, right rotator cuff repair, left hip replacement, bilateral knee arthroscopies. PSYCHIATRIC HISTORY: PTSD. FAMILY HISTORY: Mother with heart failure. Father unsure. PHYSICAL EXAMINATION: VITAL SIGNS: Reviewed. Blood pressure 130s to 180s over 70s to 80s, pulse 55 to 65, respiratory rate 16 to 20, oxygen saturation 94% to 96%. ASSESSMENT: Atypical chest pain, suspect tracheobronchitis and pleurisy. PLAN: Will stop azithromycin, give her Augmentin and Medrol Dosepak. Send her home on her current medications. She is scheduled for a stress test on Friday. MMODL / IJN: [id number] /
[2019-05-29] MEDS ORDERED: PRAMIPEXOLE 0.25 MG TAB PO SCH (21:00)
[2019-05-29] MEDS ORDERED: MONTELUKAST 10 MG TAB PO SCH (21:00)
[2019-05-29] MEDS ORDERED: ATORVASTATIN 10 MG TAB PO SCH (21:00)
[2019-05-30] MEDS ORDERED: WARFARIN 7.5 MG TAB PO SCH (18:00)
[2019-05-31] MEDS ORDERED: LEVOTHYROXINE 75 MCG TAB PO SCH (06:30)
[2019-06-01] MEDS ORDERED: WARFARIN 5 MG TAB PO SCH (18:00)
== END 2019-05-29 11:31 | disposition home or self-care (01) ==
LOC: EC 19:19 → 1SOBS 21:24
PROVIDERS: ADMIT Family Medicine; ATTEND Family Medicine
DX: R07.89 Other chest pain (principal); R09.89 Other specified symptoms and signs involving the circulatory and respiratory systems; R05 Cough; E03.9 Hypothyroidism, unspecified; E78.5 Hyperlipidemia, unspecified; F43.10 Post-traumatic stress disorder, unspecified; I10 Essential (primary) hypertension; I48.0 Paroxysmal atrial fibrillation; J44.9 Chronic obstructive pulmonary disease, unspecified; F32.9 Major depressive disorder, single episode, unspecified; M19.90 Unspecified osteoarthritis, unspecified site; J98.11 Atelectasis; M06.9 Rheumatoid arthritis, unspecified; M79.7 Fibromyalgia; G47.30 Sleep apnea, unspecified; M81.0 Age-related osteoporosis without current pathological fracture; Z79.01 Long term (current) use of anticoagulants; Z79.890 Hormone replacement therapy; Z79.899 Other long term (current) drug therapy; Z82.49 Family history of ischemic heart disease and other diseases of the circulatory system; Z85.41 Personal history of malignant neoplasm of cervix uteri; Z86.711 Personal history of pulmonary embolism; Z87.891 Personal history of nicotine dependence; Z90.710 Acquired absence of both cervix and uterus; Z96.612 Presence of left artificial shoulder joint; Z96.642 Presence of left artificial hip joint; Z96.653 Presence of artificial knee joint, bilateral; Z79.891 Long term (current) use of opiate analgesic; Z91.041 Radiographic dye allergy status; Z91.011 Allergy to milk products; Z88.7 Allergy status to serum and vaccine; Z91.018 Allergy to other foods; Z91.048 Other nonmedicinal substance allergy status; Z87.01 Personal history of pneumonia (recurrent); E72.12 Methylenetetrahydrofolate reductase deficiency; Z99.89 Dependence on other enabling machines and devices; Z98.42 Cataract extraction status, left eye; Z98.41 Cataract extraction status, right eye
CPT/HCPCS: 93005 ×2; 99285; 36415; 85379; 80061; 80053; 83735; 84484 ×2; 85025; 85610; 85730; 71046; G0378 ×2

== ENCOUNTER → 2019-09-25 | Outpatient (CLI) | payer MEDICARE, OTHER ==
--- NOTE | 2019-09-25 09:04 | CT ---
EXAMINATION TYPE: CT lumbar spine wo con DATE OF EXAM: 09/25/2019 8:32 AM COMPARISON: HISTORY: Low back pain, history of compression fracture. Left leg weakness and falling. CT DLP: 1179.6 mGycm Automated exposure control for dose reduction was used. Unenhanced CT of the lumbar spine was performed. Bone and soft tissue window settings are submitted as well as coronal and sagittal reconstructions. L1-L2: Mild to moderate degenerative disc space narrowing with mild posterior disc bulge. No herniati on or central stenosis. No foraminal encroachment. L2-L3: Mild to moderate degenerative disc space narrowing with mild posterior disc bulge. No herniati on or central stenosis. No foraminal encroachment. L3-L4: Moderate degenerative disc space narrowing. Posterior disc bulge. Mild central stenosis. Facet joint arthropathy. L4-L5: Moderate degenerative disc space narrowing. Moderate posterior disc bulge with hypertrophy lig amentum flavum and facet joint arthropathy resulting in severe central stenosis and bilateral foramin al encroachment. L5-S1: Moderate degenerative disc space narrowing. Posterior disc bulge without herniation or lateral recess stenosis. No foraminal encroachment. No evidence for compression fracture or bony lesion. Ventral spondylosis. L2 Schmorl node. IMPRESSION: 1. Multilevel degenerative disc disease. 2. Central stenosis at L3-4 and L4-5 greatest at L4-5.
== END | disposition home or self-care (01) ==
LOC: RADCTMAIN 08:14
PROVIDERS: ATTEND Family Medicine
DX: M48.061 Spinal stenosis, lumbar region without neurogenic claudication (principal); M51.36 Other intervertebral disc degeneration, lumbar region; Z78.0 Asymptomatic menopausal state
CPT/HCPCS: 72131

== ENCOUNTER → 2019-11-03 | Outpatient (CLI) | payer MEDICARE, OTHER ==
--- NOTE | 2019-11-03 16:32 | BD ---
EXAMINATION TYPE: Axial Bone Density DATE OF EXAM: 11/03/2019 COMPARISON: NONE CLINICAL HISTORY: Postmenopausal screening Height: 5 FT 2 IN Weight: 195 FRAX RISK QUESTIONS: Alcohol (3 or more units per day): NO Family History (Parent hip fracture): NO Glucocorticoids (More than 3mos): YES (Ex: prednisone, prednisolone, methylprednisolone, dexamethasone, and hydrocortisone). History of Fracture in Adulthood: YES Secondary Osteoporosis: 1. Type 1 Diabetes: NO 2. Hyperthyroidism: NO 3. Menopause before 45: TOTAL HYST AGE 42 4. Malnutrition: NO 5. Chronic liver disease: ELEVATED ENZYMES Rheumatoid Arthritis: NO Current Tobacco Use: NO RISK FACTORS HISTORY OF: Surgery to Spine/Hip(right/left)/Wrist (right/left): LEFT HIP REPLACEMENT When: 2010 Family History of Osteoporosis: YES Active: MODERATE Postmenopausal woman: TOTAL HYST AGE 42 Take estrogen and/or progesterone medications: TOOK HRT FROM AGE [age] Lost more than 2 inches in height since high school: YES Poor Health: FAIR MEDICATIONS: Prednisone or other steroids: INHALER FOR ASTHMA How Long: SINCE Thyroid Medications: YES Which medication: LEVOTHYROXINE How Long: APPROX. 10 YEARS Additional Medications: BUPROPION, CARVEDILOL, COUMADIN, DICYCLOMINE, FEXOFENADINE, FUROSEMIDE, INCRU SE INHALER, LEVOTHYROXINE, MAGNESIUM, MECLIZINE, MONTELUKAST, OXCARBAZEPINE, POTASSIUM, PRAMIPEXOLE, Sertraline, SIMVASTATIN, PRO AIR, HYDROCODONE, Additional History: EXAM MEASUREMENTS: Bone mineral densitometry was performed using the [employer] System. Bone mineral density as measured about the Lumbar spine is: ----- L1-L4(G/cm2): 1.103 T Score Values are as follows: ----- L2: -0.8 ----- L3: 0.6 ----- L4: -1.1 ----- L1-L4: -0.6 Bone mineral density has: DECREASED -7.1 % since study of: 2002 Bone mineral density about the R hip (g/cm2): 0.777 T Score values are as follows: -----R Neck: -1.9 -----R Total: -0.9 Bone mineral density has: DECREASED -15.9 % since study of: 2003 IMPRESSION: Osteopenia (T Score between -2.5 and -1). There is slightly increased risk of fracture and the patient may be considered for treatment. Re-Screen 2-5 years. NOTE: T-SCORE=SD OF THE YOUNG ADULT MEAN.
== END | disposition home or self-care (01) ==
LOC: RADBDWWP 14:52
PROVIDERS: ATTEND Family Medicine
DX: M85.80 Other specified disorders of bone density and structure, unspecified site (principal)
CPT/HCPCS: 77080

== ENCOUNTER → 2020-07-19 | Outpatient (CLI) | payer MEDICARE, OTHER ==
--- NOTE | 2020-07-19 13:00 | XR ---
EXAMINATION TYPE: XR chest 2V DATE OF EXAM: 07/19/2020 COMPARISON: 05/28/2019 HISTORY: Fall left rib pain TECHNIQUE: Single view FINDINGS: Low lung volumes. Heart size is within normal limits. Atherosclerotic aorta. No pneumothora x. No focal consolidation or pleural effusion. Minimal left basilar atelectasis or scarring. Left kt ulder prosthesis. Additional views of the left ribs show no definite evidence of displaced left rib f racture. IMPRESSION: 1. Atelectasis or scarring at the left lung base. This appears similar to the prior exam from 2019. N o definite evidence of displaced left rib fracture. No pneumothorax is seen.
== END | disposition home or self-care (01) ==
LOC: RADXRMAIN 11:56
PROVIDERS: ATTEND Family Medicine
DX: R07.81 Pleurodynia (principal)

== ENCOUNTER 2022-09-30 10:10 | Emergency (ER) | payer MEDICARE, OTHER ==
[2022-09-30 10:22] VITALS: TEMP 98.4
--- NOTE | 2022-09-30 10:49 | ED ---
General Adult HPI - General Chief complaint: Shortness of Breath Stated complaint: SOB Time Seen by Provider: 09/30/22 10:23 Source: patient Mode of arrival: ambulatory Limitations: no limitations - History of Present Illness Initial comments: Dictation was produced using [employer] dictation software. please excuse any grammatical, word or spelling errors. Chief Complaint: 77-year-old female presents with cough History of Present Illness: She 77-year-old female she has history of aspiration pneumonia. Patient reports that she's been coughing for the last 2-3 days. States that she is confident that she aspirated secondary to CPAP use. She reports palpatory chest pain to the anterior chest. States that it is sharp and worse with deep inspiration and worse with palpation. Denies any fever. The ROS documented in this emergency department record has been reviewed and confirmed by me. Those systems with pertinent positive or negative responses have been documented in the HPI. All other systems are other negative and/or noncontributory. - Related Data Home Medications Medication Instructions Recorded Confirmed Albuterol Sulfate [Proair Hfa] 2 puff INHALATION RT-Q4H PRN 06/28/15 05/29/19 Carvedilol [Coreg] 6.25 mg PO BID 06/28/15 05/29/19 Fexofenadine HCl [Melany Allergy] 180 mg PO DAILY 06/28/15 05/29/19 Levothyroxine Sodium [Synthroid] 50 mcg PO SUTUTHSA 06/28/15 05/29/19 Montelukast [Singulair] 10 mg PO HS 06/28/15 05/29/19 Omeprazole 40 mg PO DAILY 06/28/15 05/29/19 Potassium Chloride [K-Tab ER] 10 meq PO DAILY 06/28/15 05/29/19 Acetaminophen [Tylenol] 1,000 mg PO Q6HR PRN 08/24/16 05/29/19 Furosemide [Lasix] 20 mg PO DAILY 08/24/16 05/29/19 OXcarbazepine [Trileptal] 150 mg PO BID 08/24/16 05/29/19 Dicyclomine [Bentyl] 10 mg PO ACHS 12/03/16 05/29/19 Warfarin Sodium [Coumadin] 7.5 mg PO SUMOWETHSA 12/03/16 05/29/19 Warfarin [Coumadin] 5 mg PO TUFR 12/03/16 05/29/19 L.acidoph,Paracasei, B.lactis 1 cap PO DAILY 11/11/18 05/29/19 [Probiotic] Turmeric Root Extract [Turmeric] 500 mg PO DAILY 11/11/18 05/29/19 Umeclidinium [place] [Incruse 1 puff INHALATION RT-DAILY 11/11/18 05/29/19 Ellipta] buPROPion HCL [Wellbutrin XL] 300 mg PO DAILY 11/11/18 05/29/19 Meclizine [Antivert] 12.5 mg PO Q8H 05/06/19 05/29/19 HYDROcodone/APAP 10-325MG [[place] 1 tab PO Q6H PRN 05/17/19 05/29/19 10-325] Levothyroxine Sodium [Synthroid] 75 mcg PO MOWEFR 05/17/19 05/29/19 Magnesium Oxide [Mag-Ox] 400 mg PO DAILY 05/17/19 05/29/19 Sertraline [Zoloft] 100 mg PO DAILY 05/17/19 05/29/19 Azithromycin See Taper PO DAILY 05/29/19 05/29/19 Previous Rx's Medication Instructions Recorded Atorvastatin [Lipitor] 10 mg PO HS #30 tab 05/19/19 Pramipexole [Mirapex] 0.75 mg PO HS #90 tab 05/19/19 Amoxic-Pot Clav 875-125Mg 1 tab PO Q12HR 7 Days #14 tab 09/30/22 [Augmentin 875-125] Azithromycin [Zithromax Z Pack] 1 tab PO DIRECTED #6 tab 09/30/22 Allergies Allergy/AdvReac Type Severity Reaction Status Date / Time tetanus and diphtheria Allergy Severe Anaphylaxis Verified 09/30/22 10:21 toxoids [tetanus & diphtheria toxoids] gluten Allergy Diarrhea Verified 09/30/22 10:21 Iodinated Contrast Media Allergy Anaphylaxis Verified 09/30/22 10:21 [Iodinated Contrast- Oral and IV Dye] red dye Allergy Anaphylaxis Verified 09/30/22 10:21 nick AdvReac Unknown ASTHMA Verified 09/30/22 10:21 ATTACK perfume AdvReac Unknown ASTHMA Verified 09/30/22 10:21 ATTACK Milk Containing Products AdvReac causes IBS Verified 09/30/22 10:21 [Dairy] symptoms mold AdvReac Itching Verified 09/30/22 10:21 pollen extracts AdvReac Itching Verified 09/30/22 10:21 Review of Systems ROS Statement: Those systems with pertinent positive or pertinent negative responses have been documented in the HPI. ROS Other: All systems not noted in ROS Statement are negative. Past Medical History Past Medical History: Asthma, Blood Disorder, Cancer, COPD, Fibromyalgia, GERD/Reflux, Hyperlipidemia, Hypertension, Musculoskeletal Disorder, Osteoarthritis (OA), Pneumonia, Pulmonary Embolus (PE), Rheumatoid Arthritis (RA), Sleep Apnea/CPAP/BIPAP, Thyroid Disorder Additional Past Medical History / Comment(s): pulmonary embolism in August 2016 & 2012, coagulopathy w/MTHFR gene, spondylolisthesis & stenosis, osteoporosis, cervical cancer, IBS, takes trileptal for fibromyalgia, varicose veins, uses CPAP, hx falls R/T vertigo. History of Any Multi-Drug Resistant Organisms: None Reported Past Surgical History: Breast Surgery, Cholecystectomy, Heart Catheterization, Hernia Repair, Hysterectomy, Joint Replacement, Orthopedic Surgery Additional Past Surgical History / Comment(s): rt Rotator cuff repair, lt hip replacement x 2, lt shoulder replacement, bilat knee replacement, bilat knee arthroscopy, rt elbow surgery, multiple fatty tumors removed, zack cataracts removed, laparoscopic hiatal hernia surgery x2 - last 2016, rt hand surgery- knuckles, mass exc from rt breast, JONATHAN BSO, EGD, colonoscopy, Lipoma exc Past Anesthesia/Blood Transfusion Reactions: No Reported Reaction Additional Past Anesthesia/Blood Transfusion Reaction / Comment(s): "woke up with a sore jaw, bruising of face" once Past Psychological History: Depression, PTSD Smoking Status: Never smoker Past Alcohol Use History: Occasional Past Drug Use History: Marijuana - Past Family History Mother Family Medical History: Cancer, Congestive Heart Failure (CHF) Additional Family Medical History / Comment(s): . General Exam - General Exam Comments Initial Comments: PHYSICAL EXAM: General Impression: Alert and oriented x3, not in acute distress HEENT: Normocephalic atraumatic, extra-ocular movements intact, pupils equal and reactive to light bilaterally, mucous membranes moist. Cardiovascular: Heart regular rate and rhythm Chest: Able to complete full sentences, no retractions, no tachypnea, crackles in the left lower lung trejo Abdomen: abdomen soft, non-tender, non-distended, no organomegaly Musculoskeletal: Pulses present and equal in all extremities, no peripheral edema Motor: no focal deficits noted Neurological: CN II-XII grossly intact, no focal motor or sensory deficits noted Skin: Intact with no visualized rashes Psych: Normal affect and mood Limitations: no limitations Course Vital Signs 09/30/22 09/30/22 10:18 11:59 Temperature 98.4 F Pulse Rate 54 L 49 L Respiratory 20 18 Rate Blood Pressure 123/74 120/57 O2 Sat by Pulse 95 94 L Oximetry EKG Findings - EKG Comments: EKG Findings:: My EKG interpretation: Ventricular rate 91, sinus bradycardia, MI interval 155, QRS 89, QTC 39. No MI prolongation, no QTC prolongation, no ST or T-wave changes noted. . Overall, this EKG is unremarkable Medical Decision Making - Medical Decision Making Was pt. sent in by a medical professional or institution (, PA, AUTOMOBILE DESIGNER, urgent care, hospital, or retirement...) When possible be specific @ -No Did you speak to anyone other than the patient for history (EMS, parent, family, police, friend...)? What history was obtained from this source @ -No Did you review nursing and triage notes (agree or disagree)? Why? @ -I reviewed and agree with nursing and triage notes Were old charts reviewed (outside hosp., previous admission, EMS record, old EKG, old radiological studies, urgent care reports/EKG's, retirement records)? Report findings @ -No old charts were reviewed Differential Diagnosis (chest pain, altered mental status, abdominal pain women, abdominal pain men, vaginal bleeding, musculoskeletal, weakness, fever, dyspnea, syncope, headache, dizziness, GI bleed, back pain, seizure, CVA, p alpatations, mental health)? @ -Differential Dyspnea: Coronary syndrome, arrhythmia, tamponade, asthma, COPD, pulmonary embolism, pneumonia, pneumothorax, pulmonary effusion, anaphylaxis, diabetic ketoacidosis, flailed chest, pulmonary contusion, diaphragmatic rupture, anemia, n euromuscular, this is not meant to be an all-inclusive list. EKG interpreted by me (3pts min.). @ -See above X-rays interpreted by me (1pt min.). @ -Chest x-ray shows left basilar infiltrate CT interpreted by me (1pt min.). @ -None done U/S interpreted by me (1pt. min.). @ -None done What testing was considered but not performed or refused? (CT, X-rays, U/S, labs)? Why? @ -None What meds were considered but not given or refused? Why? @ -None Did you discuss the management of the patient with other professionals (professionals i.e. DrJing, PA, AUTOMOBILE DESIGNER, lab, RT, psych nurse, criminal justice social worker, wire drawing die maker, teacher, air crew officer, dependency case manager)? Give summary @ -No Was smoking cessation discussed for >3mins.? @ -No Was critical care preformed (if so, how long)? @ -No Were there social determinants of health that impacted care today? How? (Homeles sness, low income, unemployed, alcoholism, drug addiction, transportation, low edu. Level, literacy, decrease access to med. care, fpc, rehab)? @ -No Was there de-escalation of care discussed even if they declined (Discuss DNR or withdrawal of care, Hospice)? DNR status @ -No What co-morbidities impacted this encounter? (DM, HTN, Smoking, COPD, CAD, Cancer, CVA, ARF, Chemo, Hep., AIDS, mental health diagnosis, sleep apnea, morbid obesity)? @ -None Was patient admitted / discharged? Hospital course, mention meds given and route, prescriptions, significant lab abnormalities, going to OR and other pertinent info. @ -77-year-old female presents emergency department for cough and respiratory symptoms. Vital signs upon arrival are within acceptable limits. Laboratory evaluation obtained. No leukocytosis. CBC metabolic panel coag panel unremarkable. Swabs are negative. Clinical presentation concerning for pneumonia. Shared decision-making: Vitals labs imaging and swab results were all discussed with patient. Disposition options were discussed. She is well-appearing at bedside at 1:20 PM. Patient would prefer to be discharged. 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 They are understandable and agreeable with plan. They're told to seek medical attention if she has worsening symptoms. Patient given ceftriaxone and azithromycin. She is given prescription for outpatient a ntibiotics. She is told to follow-up with her primary care doctor this week. Undiagnosed new problem with uncertain prognosis? @ -No Drug Therapy requiring intensive monitoring for toxicity (Heparin, Nitro, Insulin, Cardizem)? @ -No Were any procedures done? @ -No Diagnosis/symptom? Acute, or Chronic, or Acute on Chronic? Uncomplicated (without systemic symptoms) or Complicated (systemic symptoms)? @ -1. Community acquired pneumonia Side effects of treatment? @ -No Exacerbation, Progression, or Severe Exacerbation? @ -No Poses a threat to life or bodily function? How? (Chest pain, [place], [place], pneumonia, PE, COPD, DKA, ARF, appy, cholecystitis, CVA, Diverticulitis, Homicidal, Suicidal, threat to staff... and all critical care pts) @ -yes - Lab Data Result diagrams: 09/30/22 10:55 09/30/22 10:55 Lab Results 09/30/22 09/30/22 09/30/22 Range/Units 10:55 10:55 10:55 WBC 5.9 (3.8-10.6) k/uL RBC 3.84 (3.80-5.40) m/uL Hgb 10.6 L (11.4-16.0) gm/dL Hct 32.1 L (34.0-46.0) % MCV 83.7 (80.0-100.0) fL MCH 27.6 (25.0-35.0) pg MCHC 32.9 (31.0-37.0) g/dL RDW 15.7 H (11.5-15.5) % Plt Count 195 (150-450) k/uL MPV 7.9 Neutrophils % 78 % Lymphocytes % 13 % Monocytes % 6 % Eosinophils % 2 % Basophils % 0 % Neutrophils # 4.6 (1.3-7.7) k/uL Lymphocytes # 0.7 L (1.0-4.8) k/uL Monocytes # 0.4 (0-1.0) k/uL Eosinophils # 0.1 (0-0.7) k/uL Basophils # 0.0 (0-0.2) k/uL PT 14.6 H (9.0-12.0) sec INR 1.5 H (<1.2) APTT 28.2 (22.0-30.0) sec Sodium 133 L (137-145) mmol/L Potassium 4.0 (3.5-5.1) mmol/L Chloride 99 (98-107) mmol/L Carbon Dioxide 25 (22-30) mmol/L Anion Gap 9 mmol/L BUN 19 H (7-17) mg/dL Creatinine 0.81 (0.52-1.04) mg/dL Est GFR (CKD-EPI)AfAm 80 (>60 ml/min/1.73 sqM) Est GFR (CKD-EPI)NonAf 70 (>60 ml/min/1.73 sqM) Glucose 110 H (74-99) mg/dL Plasma Lactic Acid Erick (0.7-2.0) mmol/L Calcium 8.4 (8.4-10.2) mg/dL Magnesium 1.9 (1.6-2.3) mg/dL Total Bilirubin 0.6 (0.2-1.3) mg/dL AST 27 (14-36) U/L ALT 18 (4-34) U/L Alkaline Phosphatase 78 (38-126) U/L Total Protein 5.5 L (6.3-8.2) g/dL Albumin 3.3 L (3.5-5.0) g/dL Influenza Type A (PCR) (Not Detectd) Influenza Type B (PCR) (Not Detectd) RSV (PCR) (Not Detectd) SARS-CoV-2 (PCR) (Not Detectd) 09/30/22 09/30/22 Range/Units 11:04 11:07 WBC (3.8-10.6) k/uL RBC (3.80-5.40) m/uL Hgb (11.4-16.0) gm/dL Hct (34.0-46.0) % MCV (80.0-100.0) fL MCH (25.0-35.0) pg MCHC (31.0-37.0) g/dL RDW (11.5-15.5) % Plt Count (150-450) k/uL MPV Neutrophils % % Lymphocytes % % Monocytes % % Eosinophils % % Basophils % % Neutrophils # (1.3-7.7) k/uL Lymphocytes # (1.0-4.8) k/uL Monocytes # (0-1.0) k/uL Eosinophils # (0-0.7) k/uL Basophils # (0-0.2) k/uL PT (9.0-12.0) sec INR (<1.2) APTT (22.0-30.0) sec Sodium (137-145) mmol/L Potassium (3.5-5.1) mmol/L Chloride (98-107) mmol/L Carbon Dioxide (22-30) mmol/L Anion Gap mmol/L BUN (7-17) mg/dL Creatinine (0.52-1.04) mg/dL Est GFR (CKD-EPI)AfAm (>60 ml/min/1.73 sqM) Est GFR (CKD-EPI)NonAf (>60 ml/min/1.73 sqM) Glucose (74-99) mg/dL Plasma Lactic Acid Erick 1.0 (0.7-2.0) mmol/L Calcium (8.4-10.2) mg/dL Magnesium (1.6-2.3) mg/dL Total Bilirubin (0.2-1.3) mg/dL AST (14-36) U/L ALT (4-34) U/L Alkaline Phosphatase (38-126) U/L Total Protein (6.3-8.2) g/dL Albumin (3.5-5.0) g/dL Influenza Type A (PCR) Not Detected (Not Detectd) Influenza Type B (PCR) Not Detected (Not Detectd) RSV (PCR) Not Detected (Not Detectd) SARS-CoV-2 (PCR) Not Detected (Not Detectd) Disposition Clinical Impression: Pneumonia Disposition: HOME SELF-CARE Condition: Fair Instructions (If sedation given, give patient instructions): Community Acquired Pneumonia (ED) Prescriptions: Amoxic-Pot Clav 875-125Mg [Augmentin 875-125] 1 tab PO Q12HR 7 Days #14 tab Azithromycin [Zithromax Z Pack] 1 tab PO DIRECTED #6 tab Is patient prescribed a controlled substance at d/c from ED?: No Referrals: Obdulio Grimaldo MD [Primary Care Provider] - 1-2 days Time of Disposition: 13:27
[2022-09-30 11:05] LABS: Basophils % (A) 0 %; Eosinophils # (A) 0.1 k/uL (0-0.7); Eosinophils % (A) 2 %; HCT 32.1 % (34.0-46.0); HGB 10.6 gm/dL (11.4-16.0); Lymphocytes # (A) 0.7 k/uL (1.0-4.8); Lymphocytes % (A) 13 %; MCH 27.6 pg (25.0-35.0); MCHC 32.9 g/dL (31.0-37.0); MCV 83.7 fL (80.0-100.0); Mean Platelet Volume 7.9; Monocytes # (A) 0.4 k/uL (0-1.0); Monocytes % (A) 6 %; Neutrophils # (A) 4.6 k/uL (1.3-7.7); Neutrophils % (A) 78 %; Platelet Count 195 k/uL (150-450); RBC 3.84 m/uL (3.80-5.40); RDW 15.7 % (11.5-15.5); WBC 5.9 k/uL (3.8-10.6)
[2022-09-30 11:12] LABS: INR 1.5 (<1.2); Partial Thromboplastin Time 28.2 sec (22.0-30.0); Prothrombin Time 14.6 sec (9.0-12.0)
--- NOTE | 2022-09-30 11:27 | XR ---
EXAMINATION TYPE: XR chest 2V DATE OF EXAM: 09/30/2022 11:19 AM COMPARISON: Chest radiographs from 07/19/2020 TECHNIQUE: XR chest 2V Frontal and lateral views of the chest. CLINICAL INDICATION:Female, 77 years old with history of cough; FINDINGS: Lungs/Pleura: There is no evidence of pleural effusion, focal consolidation, or pneumothorax. Pulmonary vascularity: Unremarkable. Heart/mediastinum: Cardiomediastinal silhouette is unremarkable. Atherosclerotic calcifications are seen in the aorta. Musculoskeletal: No acute osseous pathology. Rotator cuff allergies on the right with anchors in plac e. Arthroplasty changes of the left shoulder. IMPRESSION: Left basilar airspace opacities correlate for pneumonia. COPD changes.
[2022-09-30 11:29] LABS: ALT 18 U/L (4-34); AST 27 U/L (14-36); African American GFR (CKD) 80 (>60 ml/min/1.73 sqM); Albumin 3.3 g/dL (3.5-5.0); Alkaline Phosphatase 78 U/L (38-126); Anion Gap 9 mmol/L; Blood Urea Nitrogen 19 mg/dL (7-17); Calcium 8.4 mg/dL (8.4-10.2); Carbon Dioxide 25 mmol/L (22-30); Chloride 99 mmol/L (98-107); Glucose 110 mg/dL (74-99); Magnesium 1.9 mg/dL (1.6-2.3); Non-African American GFR(CKD) 70 (>60 ml/min/1.73 sqM); Sodium 133 mmol/L (137-145); Total Bilirubin 0.6 mg/dL (0.2-1.3); Total Protein 5.5 g/dL (6.3-8.2)
[2022-09-30] MEDS ORDERED: cefTRIAXone IN SWFI 1,000 MG/10 ML SYRINGE IVP STA (13:10)
[2022-09-30] MEDS ORDERED: AZITHROMYCIN 500 MG TAB PO STA (13:12)
[2022-09-30 13:46] VITALS: BP 129/58; PULSE 57; RESP 20
== END 2022-09-30 13:47 | disposition home or self-care (01) ==
LOC: EC 10:10
DX: J18.9 Pneumonia, unspecified organism (principal); E11.36 Type 2 diabetes mellitus with diabetic cataract; E78.5 Hyperlipidemia, unspecified; F32.A Depression, unspecified; G47.30 Sleep apnea, unspecified; I10 Essential (primary) hypertension; J44.0 Chronic obstructive pulmonary disease with (acute) lower respiratory infection; K21.9 Gastro-esophageal reflux disease without esophagitis; E07.9 Disorder of thyroid, unspecified; F12.90 Cannabis use, unspecified, uncomplicated; Z79.890 Hormone replacement therapy; Z79.899 Other long term (current) drug therapy; Z91.011 Allergy to milk products; Z91.018 Allergy to other foods; Z88.8 Allergy status to other drugs, medicaments and biological substances; Z20.822 Contact with and (suspected) exposure to COVID-19
CPT/HCPCS: 36415; 93005; 80053; 83605; 83735; 85025; 85610; 85730; 87636; 71046; 99285; 96374; J0696

== ENCOUNTER → 2022-10-01 | Outpatient (CLI) | payer MEDICARE ==
[2022-10-01 16:08] LABS: Basophils % (A) 0 %; Eosinophils # (A) 0.2 k/uL (0-0.7); Eosinophils % (A) 4 %; HCT 31.9 % (34.0-46.0); HGB 10.6 gm/dL (11.4-16.0); Hypochromasia Slight; Lymphocytes # (A) 0.8 k/uL (1.0-4.8); Lymphocytes % (A) 17 %; MCH 28.1 pg (25.0-35.0); MCHC 33.1 g/dL (31.0-37.0); MCV 84.7 fL (80.0-100.0); Mean Platelet Volume 7.9; Monocytes # (A) 0.3 k/uL (0-1.0); Monocytes % (A) 7 %; Neutrophils # (A) 3.4 k/uL (1.3-7.7); Neutrophils % (A) 71 %; Platelet Count 223 k/uL (150-450); RBC 3.76 m/uL (3.80-5.40); RDW 15.6 % (11.5-15.5); WBC 4.7 k/uL (3.8-10.6)
[2022-10-01 16:24] LABS: ALT 18 U/L (4-34); AST 24 U/L (14-36); African American GFR (CKD) 73 (>60 ml/min/1.73 sqM); Albumin 3.4 g/dL (3.5-5.0); Albumin/Globulin Ratio 1.4; Alkaline Phosphatase 88 U/L (38-126); Anion Gap 7 mmol/L; Blood Urea Nitrogen 16 mg/dL (7-17); Calcium 8.8 mg/dL (8.4-10.2); Carbon Dioxide 28 mmol/L (22-30); Chloride 99 mmol/L (98-107); Globulin 2.5 g/dL; Glucose 105 mg/dL (74-99); Non-African American GFR(CKD) 63 (>60 ml/min/1.73 sqM); Potassium 4.4 mmol/L (3.5-5.1); Sodium 134 mmol/L (137-145); Total Bilirubin 0.6 mg/dL (0.2-1.3); Total Protein 5.9 g/dL (6.3-8.2)
== END | disposition home or self-care (01) ==
LOC: LABWHC1 15:12
PROVIDERS: ATTEND Family Medicine
DX: Z51.81 Encounter for therapeutic drug level monitoring (principal); I10 Essential (primary) hypertension; Z79.899 Other long term (current) drug therapy; B89 Unspecified parasitic disease
CPT/HCPCS: 36415; 80053; 85025; 85379

== ENCOUNTER → 2022-10-01 | Outpatient (CLI) | payer MEDICARE ==
--- NOTE | 2022-10-01 17:10 | NM ---
EXAMINATION TYPE: NM pul vent and perfuse DATE OF EXAM: 10/01/2022 CLINICAL INDICATION: Female, 77 years old with history of I26.99 OTHER PULMONARY EMBOLISM WITHOUT ACU TE COR; TECHNIQUE: Utilizing inhalation of 69.2 mCi Tc 99m DTPA aerosol and intravenous injection of 4.97 mC i of Tc 99m MAA, ventilation and perfusion images are acquired post injection in multiple projections . FINDINGS: Normal radiotracer distribution is noted in the lungs. There is no evidence of mismatched defects. IMPRESSION: No evidence for pulmonary embolus. No mismatched defects.
== END | disposition home or self-care (01) ==
LOC: RADNMMAIN 16:04
PROVIDERS: ATTEND Family Medicine
DX: I26.99 Other pulmonary embolism without acute cor pulmonale (principal)
CPT/HCPCS: 78582; A9540; A9567

== ENCOUNTER → 2023-06-02 | Day surgery (SDC) | payer MEDICARE ==
[~2023-06-02] MED LIST changes: +HYDROmorphone 0.5 MG/0.5 ML SYRINGE IVP PRN; -LACTATED RINGERS 1,000 ML IV SCH; -LIDOCAINE 1% (10MG/ML) FOR IV START INTRADERMA PRN; -LIDOCAINE 1% INJ 10MG/ML (20 ML MDV) ONE; +MIDAZOLAM 2 MG/2 ML VIAL IV PRN; +MIDAZOLAM 2 MG/2 ML VIAL ONE; +Pre Op ABX Message 1 EACH MISC MISCELLANE ONE; +SUCCINYLCHOLINE CHLORIDE 200 MG/10 ML VIAL IV ONE; +ePHEDrine 50 MG/ML 1 ML VIAL ONE; +fentaNYL (PF) 50 MCG/ML 2 ML AMP ONE
[2023-06-02] MEDS: LACTATED RINGERS 1,000 ML IV SCH (09:00)
[2023-06-02] MEDS: DEXAMETHASONE SOD PHOSPHATE 4 MG/ML 1 ML VIAL IV ONE (09:18)
[2023-06-02] MEDS: HEPARIN SODIUM,PORCINE 5,000 UNIT/ML 1 ML VIAL SQ PRN (09:18)
[2023-06-02] MEDS: ONDANSETRON 4 MG/2 ML VIAL IVP ONE (09:18)
[2023-06-02] MEDS: ACETAMINOPHEN TAB 500 MG TAB PO PRN (09:18)
[2023-06-02 09:21] LABS: Prothrombin Time 10.9 sec (10.0-12.5)
[2023-06-02 09:25] VITALS: RESP 16
[2023-06-02] MEDS: LIDOCAINE 1%-EPI 1:100,000 20 ML VIAL SQ ONE (10:42)
--- NOTE | 2023-06-02 11:34 | P.OP ---
Date of Procedure: 06/02/23 Preoperative Diagnosis: left forearm lipoma 5 Postoperative Diagnosis: same Procedure(s) Performed: excision of multiple left forearm lipomas Anesthesia: WENDI Surgeon: Reg Anderson Estimated Blood Loss (ml): 5 Pathology: other (5lipoma) Condition: stable Disposition: PACU Operative Findings: 1.5 cm, 2 cm, 3 cm, 4 cm, 2 cm, 5 cm lipoma Description of Procedure: the patient's placed on the operative table in supine position. She received general endotracheal tube anesthesia. Hher arm was prepped and draped usual sterile fashion. The patient had multiple arm lipomas. Tthe lipomas had been marked in the preoperative hold area. The area of the incisions were excised 1% local Xylocaine. Using a 15 blade a skin incision made over each lipoma. Using blunt and sharp dissection with cautery the lipoma was dissected free sent to pathology. The skin was closed interrupted 3-0 Monocryl suture. Dermabond dressing applied. A total of 5 lipomas ranging from 1-5 cm removed from the arm. Patient top she will. She was sent to recovery in stable condition.
[2023-06-02 11:38] VITALS: TEMP 97.3
[2023-06-02 13:01] VITALS: BP 124/73; PULSE 70
== END | disposition home or self-care (01) ==
LOC: OR 08:09
PROVIDERS: ATTEND Surgery
DX: D17.22 Benign lipomatous neoplasm of skin and subcutaneous tissue of left arm (principal); I10 Essential (primary) hypertension; E78.5 Hyperlipidemia, unspecified; J44.89 Other specified chronic obstructive pulmonary disease; G47.33 Obstructive sleep apnea (adult) (pediatric); I27.20 Pulmonary hypertension, unspecified; M79.7 Fibromyalgia; M19.90 Unspecified osteoarthritis, unspecified site; F43.10 Post-traumatic stress disorder, unspecified; F32.A Depression, unspecified; K21.9 Gastro-esophageal reflux disease without esophagitis; E07.9 Disorder of thyroid, unspecified; F12.90 Cannabis use, unspecified, uncomplicated; Z86.711 Personal history of pulmonary embolism; Z86.73 Personal history of transient ischemic attack (TIA), and cerebral infarction without residual deficits; Z88.7 Allergy status to serum and vaccine; Z88.8 Allergy status to other drugs, medicaments and biological substances; Z87.891 Personal history of nicotine dependence; Z79.890 Hormone replacement therapy; Z79.51 Long term (current) use of inhaled steroids; Z79.899 Other long term (current) drug therapy; Z98.890 Other specified postprocedural states
CPT/HCPCS: 88304; 84132; 85610; 25071; J2250; J0330; J1644; J1100; J2405; J3010; J2704

== ENCOUNTER → 2023-10-23 | Outpatient (CLI) | payer MEDICARE | END | disposition home or self-care (01) | LOC: LABWHC1 14:40 | PROVIDERS: ATTEND Family Medicine | DX: Z79.899 Other long term (current) drug therapy | CPT/HCPCS: 36415; 84132 ==

== ENCOUNTER 2024-05-26 17:03 | Emergency (ER) | payer MEDICARE ==
[2024-05-26 17:13] VITALS: RESP 18
--- NOTE | 2024-05-26 17:54 | ED ---
Skin/Abscess/FB HPI - General Source: patient Mode of arrival: ambulatory Limitations: no limitations <Mary Mcgee - Last Filed: 05/26/24 18:53> <Monae Jaimes - Last Filed: 05/26/24 21:08> - General Chief complaint: Skin/Abscess/Foreign Body Stated complaint: right arm growth Time Seen by Provider: 05/26/24 17:53 - History of Present Illness Initial comments: 78-year-old female presented the ER for evaluation of right elbow lesion. Patient states around noon today she noticed a pulsatile lesion to her right medial elbow. Patient states throughout the day it has progressively grown. She also notes a tingling sensation moving distally in her right upper extremity. She denies any weakness or limited ROM. Patient does state she has a history of lipomas but is unsure if this is one. Patient is not on dialysis. She denies any fevers, chills or other complaints. No known injuries or traumas. (Mary Mcgee) - Related Data Home Medications Medication Instructions Recorded Confirmed Albuterol Sulfate [Proair Hfa] 2 puff INHALATION RT-Q4H PRN 06/28/15 06/02/23 Carvedilol [Coreg] 12.5 mg PO BID 06/28/15 06/02/23 Fexofenadine HCl [Melany Allergy] 180 mg PO DAILY 06/28/15 06/02/23 Levothyroxine Sodium [Synthroid] 50 mcg PO QAM 06/28/15 06/02/23 Montelukast [Singulair] 10 mg PO HS 06/28/15 06/02/23 Omeprazole 40 mg PO QAM 06/28/15 06/02/23 Potassium Chloride [K-Tab ER] 20 meq PO QAM 06/28/15 06/02/23 Acetaminophen [Tylenol] 1,000 mg PO Q6HR PRN 08/24/16 06/02/23 Furosemide [Lasix] 40 mg PO DAILY 08/24/16 06/02/23 OXcarbazepine [Trileptal] 150 mg PO BID 08/24/16 06/02/23 Dicyclomine [Bentyl] 10 mg PO ACHS PRN 12/03/16 06/02/23 Warfarin [Coumadin] 5 mg PO DAILY 12/03/16 06/02/23 Umeclidinium Hornell [Incruse 1 puff INHALATION RT-DAILY 11/11/18 06/02/23 Ellipta] HYDROcodone/APAP 10-325MG [Baldwin 1 tab PO Q6H PRN 05/17/19 06/02/23 10-325] Albuterol Nebulized [Ventolin 2.5 mg INHALATION Q6H PRN 05/28/23 06/02/23 Nebulized] Amoxicillin 2,000 mg PO DIRECTED PRN 05/28/23 06/02/23 Cbd/Thc 0.5 tab PO DAILY PRN 05/28/23 06/02/23 EPINEPHrine (Auto Inject) [Epipen] 0.3 mg IM ONCE PRN 05/28/23 06/02/23 Ipratropium Nebulized [Atrovent 0.5 mg INHALATION Q6HR PRN 05/28/23 06/02/23 Nebulized 0.2 MG/ML] Nitroglycerin Sl Tabs [Nitrostat] 0.4 mg SUBLINGUAL Q5M PRN 05/28/23 06/02/23 Propylene Glycol/Peg 400 [Systane 1 drop BOTH EYES Q6H PRN 05/28/23 06/02/23 Ultra 0.4-0.3% Eye Drp] Warfarin [Coumadin] 1 mg PO MOWEFR 05/28/23 06/02/23 amLODIPine [Norvasc] 5 mg PO DAILY 05/28/23 06/02/23 Enoxaparin [Lovenox] 40 mg SQ 1800 05/30/23 06/02/23 Previous Rx's Medication Instructions Recorded Atorvastatin [Lipitor] 10 mg PO HS #30 tab 05/19/19 Pramipexole [Mirapex] 0.75 mg PO HS #90 tab 05/19/19 Allergies Allergy/AdvReac Type Severity Reaction Status Date / Time tetanus and diphtheria Allergy Severe Swelling Verified 05/26/24 17:13 toxoids [tetanus & diphtheria toxoids] gluten Allergy Diarrhea Verified 05/26/24 17:13 Iodinated Contrast Media Allergy Anaphylaxis Verified 05/26/24 17:13 [Iodinated Contrast- Oral and IV Dye] red dye Allergy Anaphylaxis Verified 05/26/24 17:13 nick AdvReac Unknown ASTHMA Verified 05/26/24 17:13 ATTACK perfume AdvReac Unknown ASTHMA Verified 05/26/24 17:13 ATTACK Milk Containing Products AdvReac causes IBS Verified 05/26/24 17:13 (Dairy) symptoms [Dairy] mold AdvReac Itching Verified 05/26/24 17:13 pollen extracts AdvReac Itching Verified 05/26/24 17:13 Review of Systems ROS Other: All systems not noted in ROS Statement are negative. <Mary Mcgee - Last Filed: 05/26/24 18:53> ROS Other: All systems not noted in ROS Statement are negative. <Monae Jaimes - Last Filed: 05/26/24 21:08> ROS Statement: Those systems with pertinent positive or pertinent negative responses have been documented in the HPI. Past Medical History Past Medical History: Asthma, Blood Disorder, Cancer, COPD, CVA/TIA, Fibromyalgia, GERD/Reflux, Hyperlipidemia, Hypertension, Musculoskeletal Disorder, Osteoarthritis (OA), Pneumonia, Pulmonary Embolus (PE), Rheumatoid Arthritis (RA), Sleep Apnea/CPAP/BIPAP, Thyroid Disorder Additional Past Medical History / Comment(s): pulmonary embolism in August 2016 & 2011, coagulopathy w/MTHFR gene, spondylolisthesis & stenosis, osteoporosis, cervical cancer, IBS, takes trileptal for fibromyalgia, varicose veins, uses CPAP, hx falls R/T vertigo, "small old stroke" frontal lobe that showed on a scan, pulmonary hypertension, dry macular degeneration History of Any Multi-Drug Resistant Organisms: None Reported Past Surgical History: Adenoidectomy, Breast Surgery, Cholecystectomy, Heart Catheterization, Hernia Repair, Hysterectomy, Joint Replacement, Orthopedic Surgery, Tonsillectomy Additional Past Surgical History / Comment(s): Rt Rotator cuff repair, Lt hip replacement x 2, Lt shoulder replacement, Bilat knee replacement, Bilat knee arthroscopy, Rt elbow surgery, multiple fatty tumors removed, zack cataracts removed, laparoscopic hiatal hernia surgery x2 - last 2016, Rt hand surgery-knuc kles, mass excision from rt breast, JONATHAN BSO, EGD, colonoscopy, lipoma excisions Past Anesthesia/Blood Transfusion Reactions: No Reported Reaction Additional Past Anesthesia/Blood Transfusion Reaction / Comment(s): "woke up with a sore jaw, bruising of face" once - at a time when student religious leader were in attendance Past Psychological History: Depression, PTSD Smoking Status: Former smoker - Past Family History Mother Family Medical History: Cancer, Congestive Heart Failure (CHF) Additional Family Medical History / Comment(s): . <Mary Mcgee - Last Filed: 05/26/24 18:53> General Exam Limitations: no limitations General appearance: alert, in no apparent distress Respiratory exam: Present: normal lung sounds bilaterally. Absent: respiratory distress, wheezes, rales, rhonchi, stridor Cardiovascular Exam: Present: regular rate, normal rhythm, systolic murmur (aortic) Extremities exam: Present: full ROM, tenderness (There is a 3 cm circular pulsat ile lesion to right medial elbow. No overlying skin changes.), normal capillary refill (2+ right radial pulse.) Neurological exam: Present: alert, oriented X3, CN II-XII intact Skin exam: Present: warm, dry, intact, normal color. Absent: rash <Mary Mcgee - Last Filed: 05/26/24 18:53> - General Exam Comments Initial Comments: Visual Physical Exam Vital signs reviewed General: Well-appearing, nontoxic, no acute distress. Head: Normocephalic, atraumatic Eyes: PERRLA, EOMI ENT: Airway patent Chest: Nonlabored breathing Skin: No visual rash, normal skin tone Neuro: Alert and oriented 3 Musculoskeletal: No gross abnormalities (Mary Mcgee) Course Vital Signs 05/26/24 17:11 Temperature 97.6 F Pulse Rate 77 Respiratory 18 Rate Blood Pressure 131/65 O2 Sat by Pulse 96 Oximetry Medical Decision Making <Mary Mcgee - Last Filed: 05/26/24 18:53> - Lab Data Result diagrams: 05/26/24 19:07 05/26/24 19:07 <Monae Jaimes - Last Filed: 05/26/24 21:08> - Medical Decision Making I performed the quick note portion of this chart. Electronically signed by Mary Mcgee PA-C Was pt. sent in by a medical professional or institution (FERNANDO Small, DENTAL SERVICE TECHNICIAN, urgent care, hospital, or correction...) When possible be specific @ -No Did you speak to anyone other than the patient for history (EMS, parent, family, police, friend...)? What history was obtained from this source @ -No Did you review nursing and triage notes (agree or disagree)? Why? @ -I reviewed and agree with nursing and triage notes Were old charts reviewed (outside hosp., previous admission, EMS record, old EKG, old radiological studies, urgent care reports/EKG's, correction records)? Report findings @ -No old charts were reviewed Differential Diagnosis (chest pain, altered mental status, abdominal pain women, abdominal pain men, vaginal bleeding, weakness, fever, dyspnea, syncope, headache, dizziness, GI bleed, back pain, seizure, CVA, palpatations, mental health, musculoskeletal)? @ -Differential Musculoskeletal: Muscular strain, contusion, ligament sprain, fracture, arthritis, septic arthritis, bursitis, cellulitis, muscle spasm, nerve compression, DVT, arterial occlusion, herpes zoster, electrolyte abnormality, tumor.... This is not meant to be in all inclusive list EKG interpreted by me (3pts min.). @ -None done X-rays interpreted by me (1pt min.). @ -None done CT interpreted by me (1pt min.). @ -Pending U/S interpreted by me (1pt. min.). @ -Ultrasound of area of concern showing no obvious concerning solid or cystic mass or fluid collection. There is 2 superficial vessels noted with arterial flow. What testing was considered but not performed or refused? (CT, X-rays, U/S, labs)? Why? @ -None What meds were considered but not given or refused? Why? @ -None Did you discuss the management of the patient with other professionals (professionals i.e. , PA, DENTAL SERVICE TECHNICIAN, lab, RT, psych nurse, marriage and family social worker, stunt performer, teacher, special forces warrant officer, housing case manager)? Give summary @ -No Was smoking cessation discussed for >3mins.? @ -No Was critical care preformed (if so, how long)? @ -No Were there social determinants of health that impacted care today? How? (Homelessness, low income, unemployed, alcoholism, drug addiction, transportation, low edu. Level, literacy, decrease access to med. care, long term, rehab)? @ -No Was there de-escalation of care discussed even if they declined (Discuss DNR or withdrawal of care, Hospice)? DNR status @ -No What co-morbidities impacted this encounter? (DM, HTN, Smoking, COPD, CAD, Cancer, CVA, ARF, Chemo, Hep., AIDS, mental health diagnosis, sleep apnea, morbid obesity)? @ -None Was patient admitted / discharged? Hospital course, mention meds given and route, prescriptions, significant lab abnormalities, going to OR and other pertinent info. @ -78-year-old female presented to the ER for evaluation of right elbow lesion. Vitals within acceptable limits. Patient is neurovascularly intact. There is a 3 cm circular pulsatile lesion to right medial elbow. Patient has full active range of motion. Ultrasound initially ordered showing no obvious concerning solid or cystic mass or fluid collection seen on images. 2 superficial vessels seen within arterial flow. Patient refusing analgesic medications. Given concern of a pulsatile lesion, CT was ordered and pending at time of signout to Monae Jaimes PA-C. pending Ct results and disposition. (Mary Mcgee) Case was signed out to me pending upper extremity CT which revealed no suspicious vascular anomaly or lesion laboratory studies are nonactionable at this point. Patient will be discharged home with follow-up to her surgeon. Case discussed with Dr. Vazquez. (Monae Jaimes) - Lab Data Lab Results 05/26/24 05/26/24 Range/Units 19:07 19:07 WBC 5.3 (3.8-10.6) k/uL RBC 4.58 (3.80-5.40) m/uL Hgb 12.9 (11.4-16.0) gm/dL Hct 40.8 (34.0-46.0) % MCV 89.0 (80.0-100.0) fL MCH 28.1 (25.0-35.0) pg MCHC 31.5 (31.0-37.0) g/dL RDW 14.5 (11.5-15.5) % Plt Count 243 (150-450) k/uL MPV 7.3 Neutrophils % 67 % Lymphocytes % 19 % Monocytes % 9 % Eosinophils % 2 % Basophils % 0 % Neutrophils # 3.5 (1.3-7.7) k/uL Lymphocytes # 1.0 (1.0-4.8) k/uL Monocytes # 0.5 (0-1.0) k/uL Eosinophils # 0.1 (0-0.7) k/uL Basophils # 0.0 (0-0.2) k/uL Hypochromasia Slight Sodium 138 (137-145) mmol/L Potassium 3.9 (3.5-5.1) mmol/L Chloride 97 L (98-107) mmol/L Carbon Dioxide 35 H (22-30) mmol/L Anion Gap 6 mmol/L BUN 15 (7-17) mg/dL Creatinine 0.82 (0.52-1.04) mg/dL Est GFR (CKD-EPI)AfAm 78 (>60 ml/min/1.73 sqM) Est GFR (CKD-EPI)NonAf 68 (>60 ml/min/1.73 sqM) Glucose 87 (74-99) mg/dL Calcium 9.4 (8.4-10.2) mg/dL Total Bilirubin 0.4 (0.2-1.3) mg/dL AST 31 (14-36) U/L ALT 21 (4-34) U/L Alkaline Phosphatase 157 H (38-126) U/L Total Protein 6.4 (6.3-8.2) g/dL Albumin 3.9 (3.5-5.0) g/dL Disposition <Mary Mcgee - Last Filed: 05/26/24 18:53> Is patient prescribed a controlled substance at d/c from ED?: No <Monae Jaimes - Last Filed: 05/26/24 21:08> Clinical Impression: Lipoma Disposition: HOME SELF-CARE Condition: Stable Instructions (If sedation given, give patient instructions): Lipoma (ED) Additional Instructions: Please follow up with your primary care provider. Return to the emergency department for new or worsening symptoms. Referrals: Obdulio Grimaldo MD [Primary Care Provider] - 1-2 days
--- NOTE | 2024-05-26 18:28 | US ---
EXAMINATION TYPE: US extremity nonvasc mass RT DATE OF EXAM: 05/26/2024 COMPARISON: NONE CLINICAL INDICATION: Female, 78 years old with history of elbow pulsatile region; patient states palp able lump on arm that began at noon today. located within the antecubital fossa. pulsatile TECHNIQUE: scanned patients area of concern at the right antecubital fossa FINDINGS: at patients area of palpable within the right antecubital fossa there are two superificial vessels seen with arterial flow. no masses seen IMPRESSION: No obvious concerning solid or cystic mass or fluid collection seen on images saved. [facility], , 05/26/2024 6:26 PM
[2024-05-26] MEDS: FAMOTIDINE 20 MG/2 ML VIAL IV STA (19:15)
[2024-05-26] MEDS: diphenhydrAMINE 50 MG/ML 1 ML VIAL IVP STA (19:17)
[2024-05-26] MEDS: methylPREDNISolone SOD SUCCI 125 MG/2 ML VIAL IV STA (19:18)
[2024-05-26 19:25] LABS: Basophils % (A) 0 %; Eosinophils # (A) 0.1 k/uL (0-0.7); Eosinophils % (A) 2 %; HCT 40.8 % (34.0-46.0); HGB 12.9 gm/dL (11.4-16.0); Hypochromasia Slight; Lymphocytes % (A) 19 %; MCH 28.1 pg (25.0-35.0); MCHC 31.5 g/dL (31.0-37.0); Mean Platelet Volume 7.3; Monocytes # (A) 0.5 k/uL (0-1.0); Monocytes % (A) 9 %; Neutrophils # (A) 3.5 k/uL (1.3-7.7); Neutrophils % (A) 67 %; Platelet Count 243 k/uL (150-450); RBC 4.58 m/uL (3.80-5.40); RDW 14.5 % (11.5-15.5); WBC 5.3 k/uL (3.8-10.6)
[2024-05-26 20:08] LABS: ALT 21 U/L (4-34); AST 31 U/L (14-36); African American GFR (CKD) 78 (>60 ml/min/1.73 sqM); Albumin 3.9 g/dL (3.5-5.0); Alkaline Phosphatase 157 U/L (38-126); Anion Gap 6 mmol/L; Blood Urea Nitrogen 15 mg/dL (7-17); Calcium 9.4 mg/dL (8.4-10.2); Carbon Dioxide 35 mmol/L (22-30); Chloride 97 mmol/L (98-107); Glucose 87 mg/dL (74-99); Non-African American GFR(CKD) 68 (>60 ml/min/1.73 sqM); Potassium 3.9 mmol/L (3.5-5.1); Sodium 138 mmol/L (137-145); Total Bilirubin 0.4 mg/dL (0.2-1.3); Total Protein 6.4 g/dL (6.3-8.2)
--- NOTE | 2024-05-26 20:56 | CT ---
EXAMINATION TYPE: CT upper extremity RT w con DATE OF EXAM: 05/26/2024 COMPARISON: Same day ultrasound. HISTORY: Right elbow pulsatile lesion. CT DLP: 1180.8 mGycm Automated exposure control for dose reduction was used. CONTRAST: Performed with IV Contrast, patient injected with 100 ml mL of Isovue 300. FINDINGS: Normal appearance of the axillary artery extending into the brachial artery in the proximal right upp er extremity. There is branching and mid to distal humeral level into 2 similar caliber arteries with slightly tortuous course in close proximity likely reflecting the radial and ulnar arteries. There i s poor arterial opacification at the mid forearm level. No obvious suspicious outpouching or vascular anomaly identified. There is mild to moderate subcutaneous edema over the olecranon without vascular abnormality at this level. No suspicious focal fluid collection or hematoma is present. Incidental advanced glenohumeral joint arthropathy. There is metallic anchor from rotator cuff surger y in the lateral aspect right humeral head. IMPRESSION: As above. No suspicious vascular anomaly or lesion identified. [facility], , 05/26/2024 8:53 PM
[2024-05-26 21:21] VITALS: BP 132/78; PULSE 81; TEMP 97.7
== END 2024-05-26 21:29 | disposition home or self-care (01) ==
LOC: EC 17:03
DX: D17.21 Benign lipomatous neoplasm of skin and subcutaneous tissue of right arm (principal); Z87.891 Personal history of nicotine dependence; Z88.7 Allergy status to serum and vaccine; Z91.041 Radiographic dye allergy status; Z91.011 Allergy to milk products; Z77.120 Contact with and (suspected) exposure to mold (toxic); Z88.8 Allergy status to other drugs, medicaments and biological substances
CPT/HCPCS: 96375 ×3; 96374 ×2; 99284 ×2; 36415; 80053; 85025; 76882; 73201; J1200; J3490; Q9967; J2919

== ENCOUNTER 2024-06-11 07:15 | Day surgery (SDC) | payer MEDICARE ==
[2024-06-09 10:06] VITALS: BMI 30.4
[~2024-06-11 07:15] MED LIST changes: +HEPARIN SODIUM,PORCINE 5,000 UNIT/ML 1 ML VIAL SQ PRN; -MIDAZOLAM 2 MG/2 ML VIAL ONE; -PROPOFOL 10 MG/ML 20 ML VIAL IV ONE; -SUCCINYLCHOLINE CHLORIDE 200 MG/10 ML VIAL IV ONE; -ePHEDrine 50 MG/ML 1 ML VIAL ONE; -fentaNYL (PF) 50 MCG/ML 2 ML AMP ONE
[2024-06-11 08:32] LABS: Glucose,Whole Blood 90 mg/dL (70-110)
[2024-06-11] MEDS: LACTATED RINGERS 1,000 ML IV SCH (08:37)
[2024-06-11] MEDS: ONDANSETRON 4 MG/2 ML VIAL IVP ONE (08:37)
[2024-06-11] MEDS: ACETAMINOPHEN TAB 500 MG TAB PO PRN (08:37)
[2024-06-11] MEDS: DEXAMETHASONE SOD PHOSPHATE 4 MG/ML 1 ML VIAL IV ONE (08:37)
[2024-06-11] MEDS: IV FLUID CONTINUATION 1,000 ML IV ONE (08:44)
[2024-06-11 08:54] LABS: Prothrombin Time 11.3 sec (10.0-12.5)
[2024-06-11] MEDS ORDERED: LIDOCAINE 1% INJ 10MG/ML (20 ML MDV) ONE (08:55)
[2024-06-11] MEDS ORDERED: fentaNYL (PF) 50 MCG/ML 2 ML AMP ONE (08:55)
[2024-06-11] MEDS ORDERED: GLYCOPYRROLATE 0.2 MG/ML 2 ML VIAL ONE (08:55)
[2024-06-11] MEDS ORDERED: SUCCINYLCHOLINE CHLORIDE 200 MG/10 ML VIAL IV ONE (08:55)
[2024-06-11] MEDS ORDERED: PHENYLEPHRINE-0.9% NACL SYG 1,000 MCG/10 ML SYRINGE ONE (08:55)
[2024-06-11] MEDS ORDERED: PROPOFOL 10 MG/ML 20 ML VIAL IV ONE (08:55)
[2024-06-11] MEDS: IV FLUID CONTINUATION 50 ML with ceFAZolin 2,000 MG IV ONE (08:57)
[2024-06-11] MEDS: BUPIVACAINE (PF) 0.25% 30 ML VIAL SQ ONE (09:19)
[2024-06-11] MEDS: LIDOCAINE 1%-EPI 1:100,000 20 ML VIAL SQ ONE (09:28)
[2024-06-11 09:56] VITALS: TEMP 97
[2024-06-11 10:50] VITALS: RESP 16
[2024-06-11 11:00] VITALS: BP 121/71; PULSE 78
--- NOTE | 2024-06-11 12:48 | P.OP ---
Date of Procedure: 06/11/24 Preoperative Diagnosis: Multiple right arm lipoma Postoperative Diagnosis: Multiple right arm lipoma Procedure(s) Performed: Excision of right lower arm lipoma x 6 Anesthesia: WENDI Surgeon: Reg Anderson Estimated Blood Loss (ml): 5 Pathology: other (Multiple right arm lipomas) Condition: stable Disposition: PACU Operative Findings: Multiple right arm lipomas measuring 2 to 3.5 cm each Description of Procedure: Patient is placed on the operative table in the supine position. She received general endotracheal tube anesthesia. Her right arm was prepped and draped usual fashion. The right upper arm lipomas have been previously marked in the preoperative holding area there were 6 lipomas marked. The areas were anesthetized 1% local Xylocaine. Then using an 11 blade the skin was incised. Then using blunt sharp/electrocautery the lipoma was dissected free sent to pathology. This was done in identical fashion for each lipoma site. A total of 6 lipomas removed. Dermabond wrist was applied. Patient tolerated well. He was sent to recovery room in stable condition.
== END 2024-06-11 11:25 | disposition home or self-care (01) ==
LOC: OR 07:15
PROVIDERS: ATTEND Surgery
DX: D17.21 Benign lipomatous neoplasm of skin and subcutaneous tissue of right arm (principal); J44.9 Chronic obstructive pulmonary disease, unspecified; K21.9 Gastro-esophageal reflux disease without esophagitis; I10 Essential (primary) hypertension; E78.5 Hyperlipidemia, unspecified; E03.9 Hypothyroidism, unspecified; R73.03 Prediabetes; Z79.890 Hormone replacement therapy
CPT/HCPCS: 11406; 88304; 85610; J0330; J1100; J2405; J0690; J2003; J3010; J2704; J2371; J0665; J1596

== ENCOUNTER 2024-06-13 15:05 | Emergency (ER) | payer MEDICARE ==
[2024-06-13 15:12] VITALS: BP 144/71; PULSE 64; RESP 18; TEMP 98.5
[2024-06-13] MEDS: CEPHALEXIN 500 MG CAP PO STA (15:43)
--- NOTE | 2024-06-13 15:57 | ED ---
Extremity Problem HPI - General Chief complaint: Extremity Problem,Nontraumatic Stated complaint: Right arm swollen, red and hot post surgery Time Seen by Provider: 06/13/24 15:13 Source: patient, RN notes reviewed Mode of arrival: ambulatory Limitations: no limitations - History of Present Illness Initial comments: 78-year-old female presents emergency department with chief complaint of right arm postsurgical swelling. Patient states that she had 3 lipomas just noticing more increasing redness, swelling at the surgical site denies any diffuse arm s welling denies any reports of fevers or chills no chest pain no shortness of breath no other associated symptoms. - Related Data Home Medications Medication Instructions Recorded Confirmed Albuterol Sulfate [Proair Hfa] 2 puff INHALATION RT-Q4H PRN 06/28/15 06/09/24 Carvedilol [Coreg] 12.5 mg PO BID 06/28/15 06/09/24 Fexofenadine HCl [Melany Allergy] 180 mg PO DAILY 06/28/15 06/09/24 Levothyroxine Sodium [Synthroid] 50 mcg PO QAM 06/28/15 06/09/24 Montelukast [Singulair] 10 mg PO HS 06/28/15 06/09/24 Omeprazole 40 mg PO QAM 06/28/15 06/09/24 Potassium Chloride [K-Tab ER] 10 meq PO QAM 06/28/15 06/09/24 Acetaminophen [Tylenol] 1,000 mg PO Q6HR PRN 08/24/16 06/09/24 Furosemide [Lasix] 40 mg PO DAILY 08/24/16 06/09/24 OXcarbazepine [Trileptal] 150 mg PO BID 08/24/16 06/09/24 Warfarin [Coumadin] 5 mg PO SUTUTHSA 12/03/16 06/09/24 Umeclidinium [place] [Incruse 1 puff INHALATION RT-DAILY 11/11/18 06/09/24 Ellipta] HYDROcodone/APAP 10-325MG [[place] 1 tab PO Q6H PRN 05/17/19 06/09/24 10-325] Albuterol Nebulized [Ventolin 2.5 mg INHALATION Q6H PRN 05/28/23 06/09/24 Nebulized] Amoxicillin 2,000 mg PO DIRECTED PRN 05/28/23 06/09/24 Cbd/Thc 0.5 tab PO DAILY PRN 05/28/23 06/09/24 EPINEPHrine (Auto Inject) [Epipen] 0.3 mg IM ONCE PRN 05/28/23 06/09/24 Ipratropium Nebulized [Atrovent 0.5 mg INHALATION Q6HR PRN 05/28/23 06/09/24 Nebulized 0.2 MG/ML] Nitroglycerin Sl Tabs [Nitrostat] 0.4 mg SUBLINGUAL Q5M PRN 05/28/23 06/09/24 Propylene Glycol/Peg 400 [Systane 1 drop BOTH EYES Q6H PRN 05/28/23 06/09/24 Ultra 0.4-0.3% Eye Drp] Warfarin [Coumadin] 6 mg PO MOWEFR 05/28/23 06/09/24 amLODIPine [Norvasc] 5 mg PO QAM 05/28/23 06/09/24 Semaglutide [Ozempic] 0.5 mg SQ CHANG 06/09/24 06/09/24 Venlafaxine HCl [Effexor XR] 75 mg PO HS 06/09/24 06/09/24 Vit C/E/Cuperic/Zinc/Lutein 1 each PO BID 06/09/24 06/09/24 [Preservision Lutein Softgel] Enoxaparin [Lovenox] 40 mg SQ DAILY 06/11/24 06/11/24 Previous Rx's Medication Instructions Recorded Atorvastatin [Lipitor] 10 mg PO HS #30 tab 05/19/19 Pramipexole [Mirapex] 0.75 mg PO HS #90 tab 05/19/19 Cephalexin [Keflex] 500 mg PO Q6HR #40 cap 06/13/24 Allergies Allergy/AdvReac Type Severity Reaction Status Date / Time tetanus and diphtheria Allergy Severe Swelling Verified 06/13/24 15:12 toxoids [tetanus & diphtheria toxoids] Iodinated Contrast Media Allergy Anaphylaxis Verified 06/13/24 15:12 [Iodinated Contrast- Oral and IV Dye] red dye Allergy Anaphylaxis Verified 06/13/24 15:12 nick AdvReac Unknown ASTHMA Verified 06/13/24 15:12 ATTACK perfume AdvReac Unknown ASTHMA Verified 06/13/24 15:12 ATTACK Milk Containing Products AdvReac causes IBS Verified 06/13/24 15:12 (Dairy) symptoms [Dairy] mold AdvReac Itching Verified 06/13/24 15:12 pollen extracts AdvReac Itching Verified 06/13/24 15:12 Review of Systems ROS Statement: Those systems with pertinent positive or pertinent negative responses have been documented in the HPI. ROS Other: All systems not noted in ROS Statement are negative. Past Medical History Past Medical History: Asthma, Blood Disorder, Cancer, COPD, CVA/TIA, Fibromyalgia, GERD/Reflux, Hyperlipidemia, Hypertension, Musculoskeletal Disorder, Osteoarthritis (OA), Pneumonia, Pulmonary Embolus (PE), Rheumatoid Arthritis (RA), Sleep Apnea/CPAP/BIPAP, Thyroid Disorder Additional Past Medical History / Comment(s): lipomas,was seen in ER @ [facility] on 05-26-24 for pulsatile lesion rt arm pt stated "the brachial artery shifted and is running under and next to the lipoma",takes ozempic for wt loss,pulmonary embolism in August 2016 & 2011, coagulopathy w/MTHFR gene, spondylolisthesis & stenosis, osteoporosis, cervical cancer, IBS, takes trileptal for fibromyalgia, varicose veins, uses CPAP, hx falls R/T vertigo, "small old stroke" frontal lobe that showed on a scan-no residual, pulmonary hypertension, dry macular degeneration zack eyes History of Any Multi-Drug Resistant Organisms: None Reported Past Surgical History: Adenoidectomy, Breast Surgery, Cholecystectomy, Heart Ca theterization, Hernia Repair, Hysterectomy, Joint Replacement, Orthopedic Surgery, Tonsillectomy Additional Past Surgical History / Comment(s): Rt Rotator cuff repair, Lt hip replacement x 2, Lt shoulder replacement, Bilat knee replacement, Bilat knee arthroscopy, Rt elbow surgery, multiple fatty tumors removed, zack cataracts removed, laparoscopic hiatal hernia surgery x2 - last 2016, Rt hand surgery- knuckles, mass excision from rt breast, JONATHAN BSO, EGD, colonoscopy, lipoma excisions Past Anesthesia/Blood Transfusion Reactions: No Reported Reaction Additional Past Anesthesia/Blood Transfusion Reaction / Comment(s): "woke up with a sore jaw, bruising of face" once - 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 no hx blood transfusions Past Psychological History: Depression, PTSD Smoking Status: Former smoker - Past Family History Mother Family Medical History: Cancer, Congestive Heart Failure (CHF) Additional Family Medical History / Comment(s): . General Exam Limitations: no limitations General appearance: alert, in no apparent distress Head exam: Present: atraumatic, normocephalic, normal inspection Respiratory exam: Present: normal lung sounds bilaterally. Absent: respiratory distress, wheezes, rales, rhonchi, stridor Cardiovascular Exam: Present: regular rate, normal rhythm, normal heart sounds. Absent: systolic murmur, diastolic murmur, rubs, gallop, clicks Extremities exam: Present: other (Left forearm there are 3 surgical incisions noted proximal forearm there is incision with surrounding erythema and mild swelling no purulent drainage no wound dehiscence noted no upper arm swelling no lymphadenopathy noted) Course Vital Signs 06/13/24 15:09 Temperature 98.5 F Pulse Rate 64 Respiratory 18 Rate Blood Pressure 144/71 O2 Sat by Pulse 98 Oximetry Medical Decision Making - Medical Decision Making Was pt. sent in by a medical professional or institution (, PA, SPECIAL SYSTEMS TECHNICIAN, urgent care, hospital, or [facility]...) When possible be specific @ -No Did you speak to anyone other than the patient for history (EMS, parent, family, police, friend...)? What history was obtained from this source @ -No Did you review nursing and triage notes (agree or disagree)? Why? @ -I reviewed and agree with nursing and triage notes Were old charts reviewed (outside hosp., previous admission, EMS record, old EKG, old radiological studies, urgent care reports/EKG's, [facility] records)? Report findings @ -No old charts were reviewed Differential Diagnosis (chest pain, altered mental status, abdominal pain women, abdominal pain men, vaginal bleeding, weakness, fever, dyspnea, syncope, headache, dizziness, GI bleed, back pain, seizure, CVA, palpatations, mental health, musculoskeletal)? @ -Cellulitis, DVT, surgical infection EKG interpreted by me (3pts min.). @ -None X-rays interpreted by me (1pt min.). @ -None done CT interpreted by me (1pt min.). @ -None done U/S interpreted by me (1pt. min.). @ -None done What testing was considered but not performed or refused? (CT, X-rays, U/S, labs)? Why? @ -None What meds were considered but not given or refused? Why? @ -None Did you discuss the management of the patient with other professionals (professionals i.e. , PA, SPECIAL SYSTEMS TECHNICIAN, lab, RT, psych nurse, social work nurse, flow manager, teacher, plant protection officer, supervisor case loading)? Give summary @ -No Was smoking cessation discussed for >3mins.? @ -No Was critical care preformed (if so, how long)? @ -No Were there social determinants of health that impacted care today? How? (Homelessness, low income, unemployed, alcoholism, drug addiction, transportation, low edu. Level, literacy, decrease access to med. care, long term, rehab)? @ -No Was there de-escalation of care discussed even if they declined (Discuss DNR or withdrawal of care, Hospice)? DNR status @ -No What co-morbidities impacted this encounter? (DM, HTN, Smoking, COPD, CAD, Cancer, CVA, ARF, Chemo, Hep., AIDS, mental health diagnosis, sleep apnea, morbid obesity)? @ -None Was patient admitted / discharged? Hospital course, mention meds given and route, prescriptions, significant lab abnormalities, going to OR and other pertinent info. @ -Discharge patient has some mild swelling and erythema of the right arm and surgical sites there is no purulent drainage no concern for DVT at this time patient was placed on prophylactic antibiotics for concern of wound infection versus reactive swelling erythema. Patient will follow-up with surgeon tomorrow. Return for as discussed. Undiagnosed new problem with uncertain prognosis? @ -No Drug Therapy requiring intensive monitoring for toxicity (Heparin, Nitro, Insulin, Cardizem)? @ -No Were any procedures done? @ -No Diagnosis/symptom? @ -Surgical site infection Acute, or Chronic, or Acute on Chronic? @ -Acute Uncomplicated (without systemic symptoms) or Complicated (systemic symptoms)? @ -Uncomplicated Side effects of treatment? @ -No Exacerbation, Progression, or Severe Exacerbation? @ -No Poses a threat to life or bodily function? How? (Chest pain, [place], [place], pneumonia, PE, COPD, DKA, ARF, appy, cholecystitis, CVA, Diverticulitis, Homicidal, Suicidal, threat to staff... and all critical care pts) @ -No Disposition Clinical Impression: Wound infection Disposition: HOME SELF-CARE Condition: Stable Instructions (If sedation given, give patient instructions): Acute Wound Care (ED) Additional Instructions: Please return to the Emergency Department if symptoms worsen or any other concerns. Prescriptions: Cephalexin [Keflex] 500 mg PO Q6HR #40 cap Is patient prescribed a controlled substance at d/c from ED?: No Referrals: Obdulio Grimaldo MD [Primary Care Provider] - 1-2 days Time of Disposition: 15:57
[2024-06-13] MEDS: CEPHALEXIN 500MG STARTER PACK 4 CAP BTL PO STA (16:08)
== END 2024-06-13 16:08 | disposition home or self-care (01) ==
LOC: EC 15:05
DX: T81.49XA Infection following a procedure, other surgical site, initial encounter (principal); Z88.7 Allergy status to serum and vaccine; Z91.041 Radiographic dye allergy status; Z91.09 Other allergy status, other than to drugs and biological substances; Z91.011 Allergy to milk products; Z86.73 Personal history of transient ischemic attack (TIA), and cerebral infarction without residual deficits; Z87.891 Personal history of nicotine dependence
CPT/HCPCS: 99283